=== PATIENT | male | born 1940 | race Caucasian/White ===

== ENCOUNTER 2016-12-20 09:34 | Emergency (ER) | payer MEDICARE ==
[2016-12-20 11:51] VITALS: BP 142/83
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
--- NOTE | 2016-12-22 09:23 | CR ---
Chest 2V INDICATION: cough FINDINGS: Comparison 10/28/2008. Mild hyperinflation. Chronic compression fractures in the mid and lo wer thoracic spine have mildly progressed since the prior exam in 2008. No focal consolidation.
== END 2016-12-20 12:48 | disposition home or self-care (01) ==
LOC: JP.ED 09:34
DX: J10.1 Influenza due to other identified influenza virus with other respiratory manifestations (principal); I10 Essential (primary) hypertension; K21.9 Gastro-esophageal reflux disease without esophagitis; Z98.890 Other specified postprocedural states; Z79.899 Other long term (current) drug therapy; Z88.0 Allergy status to penicillin; Z88.8 Allergy status to other drugs, medicaments and biological substances
CPT/HCPCS: 36415; 71020; 71020-26; 80053; 81001; 83605; 85025; 86140; 87040; 87210; 87804; 99283; 99284

== ENCOUNTER 2018-10-22 08:01 | Inpatient (IN) | payer MEDICARE ==
[2018-10-22] MEDS: Clindamycin Phosphate 300 MG/2 ML SDV ONE ×3 (07:40→11:55)
[~2018-10-22 08:01] MED LIST: Acetaminophen 500 MG Tab PO ONE; Dexamethasone 4 MG/ML SDV ONE; Glycopyrrolate 0.2 MG/ML 5 ML MDV ONE; Neostigmine Methylsulfate 1 MG/ML 5 ML Syringe ONE; Ondansetron 4 MG/2 ML SDV ONE; Propofol 200 MG/20 ML SDV ONE; Rocuronium 50 MG/5 ML Vial ONE; Succinylcholine 200 MG/10 ML MDV ONE; fentaNYL 250 MCG/5 ML SDV ONE; methylPREDNISolone Sodium Succinate 125 MG/2 ML SDV IV ONE
[2018-10-22] MEDS: Dextrose 5%-Lactated Ringers 1,000 ML IV SCH ×2 (09:04→14:29)
[2018-10-22] MEDS ORDERED: Meropenem 500 MG in Sodium Chloride 0.9% 50 ML IV ONE (09:30)
[2018-10-22] MEDS ORDERED: Bacitracin Oint 1 GM U/D Packet ONE (12:07)
[2018-10-22] MEDS ORDERED: Ondansetron 4 MG/2 ML SDV IVPUSH PRN (14:08)
[2018-10-22] MEDS ORDERED: guaiFENesin/Dextromethorphan 100-10 MG/5 ML Soln 10 ML Cup PO PRN (14:12)
[2018-10-22] MEDS ORDERED: Hypromellose 0.4% Ophth Soln 15 ML Bottle EYEBOTH PRN (14:13)
[2018-10-22] MEDS: Acetaminophen/HYDROcodone 108-2.5 MG/5 ML Soln 15 ML UD Cup PO PRN (14:32)
[2018-10-22] MEDS: Meropenem 500 MG in Sodium Chloride 0.9% 50 ML IV SCH ×2 (17:07→22:05)
[2018-10-22] MEDS ORDERED: methylPREDNISolone Sodium Succinate 125 MG/2 ML SDV IVPUSH ONE (18:00)
[2018-10-22] MEDS: rOPINIRole 1 MG Tab PO SCH (20:15)
[2018-10-22] MEDS: Oxybutynin 5 MG Tab PO SCH (20:15)
[2018-10-22] MEDS: Tamsulosin 0.4 MG Cap.ER PO SCH (20:16)
[2018-10-22] MEDS: Hydroxychloroquine 200 MG Tab PO SCH (20:16)
[2018-10-22] MEDS: Ketotifen 0.025% Ophth Soln 5 ML Bottle EYEBOTH SCH (20:16)
[2018-10-22] MEDS: Ciprofloxacin 500 MG Tab PO SCH (20:16)
[2018-10-23] MEDS: Dextrose 5%-Lactated Ringers 1,000 ML IV SCH ×2 (01:35→15:08)
[2018-10-23] MEDS: Meropenem 500 MG in Sodium Chloride 0.9% 50 ML IV SCH (05:42)
[2018-10-23] MEDS: predniSONE 5 MG Tab PO SCH (08:23)
[2018-10-23] MEDS: Pantoprazole 40 MG Tab.CR PO SCH (08:23)
[2018-10-23] MEDS: Ciprofloxacin 500 MG Tab PO SCH ×2 (08:23→20:04)
[2018-10-23] MEDS: amLODIPine 10 MG Tab PO SCH (08:24)
[2018-10-23] MEDS: Hydroxychloroquine 200 MG Tab PO SCH ×2 (08:24→20:05)
[2018-10-23] MEDS: Ketotifen 0.025% Ophth Soln 5 ML Bottle EYEBOTH SCH ×2 (08:24→20:03)
[2018-10-23] MEDS: Lisinopril 10 MG Tab PO SCH (08:25)
[2018-10-23] MEDS: Finasteride 5 MG Tab PO SCH (08:25)
[2018-10-23] MEDS: Tiotropium Inhaler 18 MCG Inhalation Powder Cap Kit of 5 INH SCH (10:43)
[2018-10-23] MEDS ORDERED: Furosemide 20 MG/2 ML VIAL IVPUSH ONE (11:00)
[2018-10-23] MEDS: Magnesium Sulfate/Water 2 GM in Premix Bag 1 BAG IV SCH ×3 (11:41→21:10)
[2018-10-23] MEDS: Oxybutynin 5 MG Tab PO SCH (20:04)
[2018-10-23] MEDS: Tamsulosin 0.4 MG Cap.ER PO SCH (20:04)
[2018-10-23] MEDS: rOPINIRole 1 MG Tab PO SCH (20:05)
[2018-10-24] MEDS: Dextrose 5%-Lactated Ringers 1,000 ML IV SCH ×2 (01:03→19:32)
[2018-10-24] MEDS: Magnesium Sulfate/Water 2 GM in Premix Bag 1 BAG IV SCH ×4 (03:29→21:54)
[2018-10-24] MEDS: Tiotropium Inhaler 18 MCG Inhalation Powder Cap Kit of 5 INH SCH (07:25)
[2018-10-24] MEDS: Pantoprazole 40 MG Tab.CR PO SCH (07:58)
[2018-10-24] MEDS: Ciprofloxacin 500 MG Tab PO SCH ×2 (07:59→21:00)
[2018-10-24] MEDS: predniSONE 5 MG Tab PO SCH (07:59)
[2018-10-24] MEDS: amLODIPine 10 MG Tab PO SCH (08:00)
[2018-10-24] MEDS: Lisinopril 10 MG Tab PO SCH (08:00)
[2018-10-24] MEDS: Finasteride 5 MG Tab PO SCH (08:01)
[2018-10-24] MEDS: Hydroxychloroquine 200 MG Tab PO SCH ×2 (08:01→21:00)
[2018-10-24] MEDS: Ketotifen 0.025% Ophth Soln 5 ML Bottle EYEBOTH SCH ×2 (08:02→21:01)
[2018-10-24] MEDS: Docusate Sodium 100 MG Cap PO SCH ×2 (08:37→21:00)
[2018-10-24] MEDS: Bisacodyl 5 MG Tab PO SCH ×2 (08:37→21:00)
[2018-10-24] MEDS: Clindamycin Phosphate 900 MG in Sodium Chloride 0.9% 100 ML IV SCH ×2 (11:04→18:36)
[2018-10-24] MEDS: Tamsulosin 0.4 MG Cap.ER PO SCH (21:00)
[2018-10-24] MEDS: Oxybutynin 5 MG Tab PO SCH (21:00)
[2018-10-24] MEDS: rOPINIRole 1 MG Tab PO SCH (21:03)
[2018-10-25] MEDS: Clindamycin Phosphate 900 MG in Sodium Chloride 0.9% 100 ML IV SCH ×3 (02:12→17:25)
[2018-10-25] MEDS: Magnesium Sulfate/Water 2 GM in Premix Bag 1 BAG IV SCH (04:19)
[2018-10-25] MEDS: Tiotropium Inhaler 18 MCG Inhalation Powder Cap Kit of 5 INH SCH (07:33)
--- NOTE | 2018-10-25 08:10 | PN ---
DATE OF SERVICE: 10/25/2018 SUBJECTIVE: Skip is postoperative day #3. Pain is controlled. Vital signs; he has been afebrile. Oral intake 2430. Urine output 2525. SYDNEE drain put out 17 mL of a dark red drainage. REVIEW OF SYSTEMS: Remainder of review of systems negative for any pertinent positives and negatives. OBJECTIVE: GENERAL: Skip Villeda is a 78-year-old male. Alert, orientated. VITAL SIGNS: TPR 96.1, 56, 16, blood pressure 144/80. NECK: Incision, staple line. Negative. Goyo Lopez MD. States less red than yesterday. He was started on clindamycin because the incision looked a little red. SYDNEE drain intact. HEART: Regular rate and rhythm. LUNGS: Clear. EXTREMITIES: Without peripheral edema. ASSESSMENT: Zenker diverticulectomy and excision of subfascial lipoma for history of symptomatic Zenker diverticulum and subfascial lipoma. Date of surgery: 10/22/2018. Surgeon: Goyo Lopez MD. PLAN: Continue same cares. Plan discharge in a.. Vandana Baumann PA-C /[id number]
[2018-10-25] MEDS: Ciprofloxacin 500 MG Tab PO SCH ×2 (08:40→20:30)
[2018-10-25] MEDS: Pantoprazole 40 MG Tab.CR PO SCH (08:40)
[2018-10-25] MEDS: predniSONE 5 MG Tab PO SCH (08:40)
[2018-10-25] MEDS: Lisinopril 10 MG Tab PO SCH (08:41)
[2018-10-25] MEDS: amLODIPine 10 MG Tab PO SCH (08:41)
[2018-10-25] MEDS: Ketotifen 0.025% Ophth Soln 5 ML Bottle EYEBOTH SCH ×2 (08:41→20:31)
[2018-10-25] MEDS: Docusate Sodium 100 MG Cap PO SCH (08:41)
[2018-10-25] MEDS: Bisacodyl 5 MG Tab PO SCH (08:41)
[2018-10-25] MEDS: Finasteride 5 MG Tab PO SCH (08:42)
[2018-10-25] MEDS: Hydroxychloroquine 200 MG Tab PO SCH ×2 (08:42→20:32)
--- NOTE | 2018-10-25 13:21 | PN ---
DATE OF SERVICE: 10/24/2018 The patient has been afebrile with stable vital signs. His incision is a little bit reddened at the base, this may just be reactive from the manipulation of it. We will empirically put him on some clindamycin in the interim, continued on his Cipro for the urinary tract infection diagnosed preoperatively. The plan will be to go to a full-liquid diet today. If his IV comes out and his oral intake is satisfactory, that can probably be left out. We will see how things look tomorrow morning with regard to whether or not he is ready for being discharged back to his care center. We will check an amylase on the SYDNEE drain fluid as the lower end of the parotid gland was dissected somewhat during the course of the procedure. Goyo Lopez MD Job #: [id number]
--- NOTE | 2018-10-25 13:33 | PN ---
DATE OF SERVICE: 10/23/2018 The patient has been afebrile with stable vital signs, status post a Zenker diverticulectomy yesterday. Clinically, no major problems have been noted. Labs show a hemoglobin of 8.1, creatinine is down a little bit at 1.7, and magnesium is slightly low at 1.7. We will give him 1 unit of packed RBCs today followed by 10 mg of Lasix to avoid any problems with fluid overload. Otherwise, obtain a barium swallow x-ray in the morning. this with a lateral approach so as to evaluate the Zenker diverticulectomy. If that looks okay, we will start him on a full-liquid diet at that time. I have noticed voice is good today, and the incision looks good. Goyo Lopez MD Job #: [id number]
[2018-10-25] MEDS: Acetaminophen/HYDROcodone 108-2.5 MG/5 ML Soln 15 ML UD Cup PO PRN (18:18)
[2018-10-25] MEDS: Tamsulosin 0.4 MG Cap.ER PO SCH (20:30)
[2018-10-25] MEDS: Oxybutynin 5 MG Tab PO SCH (20:31)
[2018-10-25] MEDS: rOPINIRole 1 MG Tab PO SCH (20:32)
[2018-10-26] MEDS: Clindamycin Phosphate 900 MG in Sodium Chloride 0.9% 100 ML IV SCH (02:21)
[2018-10-26] MEDS: Tiotropium Inhaler 18 MCG Inhalation Powder Cap Kit of 5 INH SCH (07:28)
[2018-10-26] MEDS: amLODIPine 10 MG Tab PO SCH (08:26)
[2018-10-26] MEDS: Ciprofloxacin 500 MG Tab PO SCH (08:26)
[2018-10-26] MEDS: Hydroxychloroquine 200 MG Tab PO SCH (08:27)
[2018-10-26] MEDS: predniSONE 5 MG Tab PO SCH (08:27)
[2018-10-26] MEDS: Finasteride 5 MG Tab PO SCH (08:27)
[2018-10-26] MEDS: Lisinopril 10 MG Tab PO SCH (08:27)
[2018-10-26] MEDS: Ketotifen 0.025% Ophth Soln 5 ML Bottle EYEBOTH SCH (08:27)
[2018-10-26] MEDS: Pantoprazole 40 MG Tab.CR PO SCH (08:27)
--- NOTE | 2018-10-26 10:28 | CR ---
CLINICAL HISTORY: Status post Zenker's diverticulectomy FINDINGS: Multiple lateral images were obtained over the cervical region. The patient is status post to the surgery. There is a surgical drain in the low cervical region. There are 3 images were the patient swallowed some barium. There is filling of the oropharynx and the cyst the vallecula. There is contrast seen into the upper thoracic esophagus. There is some anterior soft tissue swelling Impression: Patient is status post neck surgery. There is anterior soft tissue swelling No obvious barium extravasation is identified on this very limited study.
--- NOTE | 2018-10-26 11:11 | OR ---
DATE OF PROCEDURE: 10/22/2018 PREOPERATIVE DIAGNOSIS: Highly symptomatic Zenker diverticulum. POSTOPERATIVE DIAGNOSES: 1. Highly symptomatic Zenker diverticulum. 2. Subfascial cervical lipoma. OPERATIVE PROCEDURES: 1. Zenker diverticulectomy with cricopharyngeal myotomy (67579). 2. Excision of subfascial cervical lipoma (62042). ANESTHESIA: General. ASSISTANTS: Vandana Baumann PA-C, and FLORENCIO Langston3. INDICATION FOR PROCEDURE: This is a 78-year-old presenting with increasingly symptomatic Zenker diverticulum, also having some aspiration episodes as well as general difficulty in swallowing. Recent upper GI x-ray revealed a large posteriorly based Zenker diverticulum. Plan is to proceed with a cervical exploration and Zenker diverticulectomy with associated cricopharyngeal myotomy. Potential risks of the procedure were reviewed with the patient including bleeding, infection, leaks from the diverticulectomy closure site, as well as possible cardiopulmonary, septic, or hemorrhagic complications leading to were all discussed, and the patient wishes to proceed. DETAILS OF PROCEDURE: The patient was taken to the operating room and placed in a supine position. After general endotracheal anesthesia was induced, we initially attempted an upper endoscopy with passage of a guidewire. The upper GI endoscope, in all cases, passed directly into the diverticulum, and so we abandoned that effort. At that point, the left side of the neck and upper chest were then prepped and draped. An incision was then made along the anterior border of the sternocleidomastoid muscle, carried down through the skin, subcutaneous tissue, and platysma layers. Subplatysmal flaps were then raised anteriorly and posteriorly. The cervical fascia attaching the sternocleidomastoid on its anterior aspect was then incised. During the course of the dissection, roughly a 1.5 cm lipoma was encountered in that area of the dissection. At this point, the cervical vertebrae on the left side were palpated and the sternocleidomastoid muscle retracted laterally and the larynx and thyroid medially. This was retracted and held in position such that the recurrent laryngeal nerve would be drawn away from the point of dissection. This then allowed dissection anterior to the vertebral bodies where the diverticulum was encountered. This was initially dissected free. At that point, with Anesthesia assistance, a guidewire was passed orally midway into the main course of the esophagus. Over this, a 45-Azeri Savary dilator placed to prevent overtightening of the esophagus at the time of the diverticulectomy closure. At this point, the entire cricopharyngeus muscle was divided somewhat to the left of the posterior midline, and roughly 1 cm of the hypopharyngeal muscle superior to the diverticulum also then divided, this being accomplished with electrocautery in both cases. The diverticulum was then pulled up, and using 2 firings of the LUX purple loads, the diverticulum was divided and the specimen delivered from the field. The closure of the diverticulum was accomplished with the dilator in place so as to avoid overtightening of the esophagus at that level. At this point, no further problems were noted. The dilator and wire were removed, and the area appeared to be satisfactorily hemostatic. The area was then irrigated with antibiotic-containing saline solution, and the deeper cervical fascia was then approximated with a running 3-0 Vicryl stitch, as was the platysmal layer. A Jenaro- Gibson drain had been placed through a stab wound lateral to the incision and positioned in the depths of the dissection adjacent to the diverticulectomy site, and the skin was closed with grace. The drain was affixed with some 4-0 Vicryl stitch, and dressing applied. The patient was taken to the recovery room in satisfactory condition. There were no evident complications. Physician video library assistant, Vandana Baumann, played an essential role in assisting in this case, helping to position the patient, retract structures as needed, as well as suturing and cutting suturing when indicated. Her presence improved patient safety and decreased operative time. Goyo Lopez MD Job #: [id number]
[2018-10-26 11:20] VITALS: BP 156/73
--- NOTE | 2018-10-26 11:44 | DISCH ---
ADMISSION DIAGNOSIS: 1. Zenker's diverticulum. 2. History of alcohol abuse in remission. 3. Hypertension. 4. Benign prostatic hypertrophy. 5. Cerebrovascular accident. 6. Recent history of pneumonia. 7. Chronic kidney disease, stage 3. 8. Liver fibrosis. 9. Restless legs syndrome. 10.Diverticulosis. 11.Osteopenia. 12.Joint pain. 13.Cerebrovascular ataxia. 14.Rheumatoid arthritis. 15.Neuropathy. 16.Status post alcoholic. 17.Long-term use of systemic steroids. 18.Chronic obstructive pulmonary disease. DISCHARGE DIAGNOSES: Zenker diverticulectomy and excision of subfascial lipoma for history of symptomatic Zenker diverticulum and subfascial lipoma. Date of surgery 10/22/2018. Surgeon, Goyo Lopez MD. HOSPITAL COURSE: Skip had his surgery on 10/22/2018. He had no operative complications. On postoperative day #1, he was afebrile. Vital signs were stable. Hemoglobin was 8.1. He was given 1 unit of packed red blood cells followed by 10 mg of Lasix, and started on a full liquid diet. On postoperative day #2, he had an upper GI and it was negative. On postoperative day 3, he was continued on the full liquid diet. Pain was managed, oral intake was adequate. His incision was a little bit red. He was started on an antibiotic and it did improve within 24 hours. He was able to be discharged to home without any complications on 10/26/2017. PHYSICAL EXAMINATION: GENERAL: Skip is a 78-year-old male. VITAL SIGNS: Height is 5 feet 10.87 inches. Weight is 163 pounds. TPR is 97.5/63/17, blood pressure 144/84. HEENT: Negative. NECK: Supple. HEART: Regular rate and rhythm. LUNGS: Clear. Incision on left side of neck grace intact. SYDNEE drain will be removed. 4x4s placed over that. Area around the incision is minimally pink. ABDOMEN: Soft, nontender. EXTREMITIES: Without peripheral edema. DISPOSITION: Discharged to home. CONDITION: Stable and improving. FOLLOWUP APPOINTMENT: With Goyo Lopez MD on 11/03/2018 at 9:00 a.m. HOME MEDICATIONS: Clindamycin 300 mg p.o. every 8 hours for 5 days, acetaminophen and hydrocodone 108-2.5 mg per 5 mL 15 mL oral q.4 hours p.r.n. pain enough for 7 days was given. He is to resume his home medication of Fosamax 70 mg oral every 7 days, Optivar 0.05% ophthalmic solution 1 drop topical twice daily, bacitracin ointment one applicator twice daily, calcium carbonate one tab 3 times a day, Dextran 70-Hypromellose artificial Tears one drop both eyes p.r.n. redness, Robitussin DM 5 mL oral q.4 hours, finasteride, Proscar 10 mg oral daily, hydrocortisone preparation H one applicator twice or as directed, Plaquenil 200 mg oral twice daily, Motrin 800 mg oral every 8 hours, lisinopril 10 mg oral daily, Imodium 2 mg oral as directed, milk of magnesia 30 mL p.r.n. constipation, Beng[place] one applicator 2 times a day, multivitamin one tablet oral daily, Naprosyn 500 mg oral p.r.n. pain, Nystatin 5 mL 4 times a day p.r.n. thrush, omeprazole 40 mg daily, oxybutynin 5 mg oral at bedtime, potassium chloride 15 mL oral daily, Flomax 0.4 mg oral daily, Spiriva hand haler one cap inhalation daily, Kenalog 0.1% cream topical 3 times daily, lanolin one applicator p.r.n. itching, amlodipine besylate 10 mg once daily, prednisone 8 mg daily, ropinirole 1 mg oral at bedtime. DIET: Full liquid diet for 5 days, then gradually increase. Drink 8 to 10 glasses of water a day. ACTIVITY: No lifting greater than 10 pounds for 6 weeks[address] Driving, do not drive until grace are out. May shower. DISCHARGE INSTRUCTIONS: Notify provider if any fever, increased pain, nausea, or vomiting. Keep site clean and dry.
== END 2018-10-26 14:10 | disposition home or self-care (01) | DRG 327 ==
LOC: JP.SDSSCHI 08:01 → JP.SDS 08:01 → EDSTATUS 10:30 → JP.MS 12:30
PROVIDERS: ADMIT Surgery; ATTEND Surgery
PROC: 0DB50ZZ Excision of Esophagus, Open Approach (ICD-10-PCS; principal; 2018-10-22)
PROC: 0JB50ZZ Excision of Left Neck Subcutaneous Tissue and Fascia, Open Approach (ICD-10-PCS; 2018-10-22)
PROC: 0K830ZZ Division of Left Neck Muscle, Open Approach (ICD-10-PCS; 2018-10-22)
PROC: 0CJY8ZZ Inspection of Mouth and Throat, Via Natural or Artificial Opening Endoscopic (ICD-10-PCS; 2018-10-22)
PROC: 30233N1 Transfusion of Nonautologous Red Blood Cells into Peripheral Vein, Percutaneous Approach (ICD-10-PCS; 2018-10-23)
DX: K22.5 Diverticulum of esophagus, acquired (principal); G11.9 Hereditary ataxia, unspecified; N39.0 Urinary tract infection, site not specified; D17.0 Benign lipomatous neoplasm of skin and subcutaneous tissue of head, face and neck; D64.9 Anemia, unspecified; I12.9 Hypertensive chronic kidney disease with stage 1 through stage 4 chronic kidney disease, or unspecified chronic kidney disease; N18.3 Chronic kidney disease, stage 3 (moderate); Z87.891 Personal history of nicotine dependence; J44.9 Chronic obstructive pulmonary disease, unspecified; N40.1 Benign prostatic hyperplasia with lower urinary tract symptoms; R33.8 Other retention of urine; Z86.73 Personal history of transient ischemic attack (TIA), and cerebral infarction without residual deficits; F10.21 Alcohol dependence, in remission; G25.81 Restless legs syndrome; K21.9 Gastro-esophageal reflux disease without esophagitis; K74.0 Hepatic fibrosis; M85.80 Other specified disorders of bone density and structure, unspecified site; Z79.52 Long term (current) use of systemic steroids; Z88.5 Allergy status to narcotic agent; Z88.0 Allergy status to penicillin; M05.9 Rheumatoid arthritis with rheumatoid factor, unspecified; G62.1 Alcoholic polyneuropathy; Z87.01 Personal history of pneumonia (recurrent)
CPT/HCPCS: 36415; 36430; 70360; 70360-26; 80053; 82150; 82607; 82728; 83735; 83880; 84100; 85027; 86850; 86900; 86901; 86920; 86922; 88304; 88312; 93005; 94640; 94762; A9270-GY; J0330; J1100; J1940; J2185; J2405; J2704; J2710; J2930; J3010; J3475; J3490; J7030; J7042; J7050; P9016; S0077

== ENCOUNTER 2019-07-26 12:27 | Emergency (ER) | payer MEDICARE ==
[2019-07-26 12:40] VITALS: BP 174/91; PULSE 70
--- NOTE | 2019-07-26 13:13 | EDM.PDOC ---
ED HPI GENERAL MEDICAL PROBLEM - General Chief Complaint: Neuro Symptoms/Deficits Stated Complaint: POSSIBLE STROKE Time Seen by Provider: 07/26/19 12:58 Source of Information: Reports: Patient, Family History Limitations: Reports: No Limitations - History of Present Illness INITIAL COMMENTS - FREE TEXT/NARRATIVE: 79-year-old male that developed some right arm tingling last evening around 8 PM , and has some intermittent right leg tingling with weightbearing over the same amount of time. No other neurologic complaints such as right leg or right arm weakness, aphasia, dysarthria, visual complaints or headache. No recent trauma. The same symptoms happened to him 40 years ago and he was told he had a "stroke " but had no residual symptoms. Since his symptoms were persistent today he thought he should have it checked out. He walks with a walker, no increased difficulty today over yesterday. His son is with him and sees no objective change. Onset: Unknown/Unsure (Around 14 or 15 hrs. ago) Location: Reports: Upper Extremity, Right, Lower Extremity, Right Associated Symptoms: Reports: No Other Symptoms Headache Pain Score (Numeric/FACES): 2 - Related Data Allergies Allergy/AdvReac Type Severity Reaction Status Date / Time oxycodone HCl [From Percocet] Allergy Cannot Verified 07/26/19 12:45 Remember Penicillins Allergy Cannot Verified 07/26/19 12:45 Remember Home Meds: Home Meds Calcium Carbonate/Vitamin D3 [Caltrate 600+D 1500 MG-400 Units] 1 tab PO TID [History] Multivitamins/Iron/Folic Acid [Cerovite Advanced Formula] 1 tab PO DAILY [History] Omeprazole 40 mg PO DAILY 12/25/13 [History] Tamsulosin HCl 0.4 mg PO DAILY 12/25/13 [History] amLODIPine Besylate [Amlodipine Besylate] 10 mg PO DAILY 12/25/13 [History] Ibuprofen [Motrin] 800 mg PO Q6HR PRN 01/28/16 [History] Triamcinolone Acetonide [Kenalog 0.1% Crm] 0.1 percent TOP TID PRN 01/28/16 [ History] Azelastine [Optivar 0.05% Ophth Soln] 1 drop TOP BID 12/20/16 [History] Finasteride [Proscar] 10 mg PO DAILY 12/20/16 [History] Oxybutynin 5 mg PO BEDTIME 12/20/16 [History] rOPINIRole HCl [Requip] 1 mg PO BEDTIME 12/20/16 [History] Alendronate Sodium [Fosamax] 70 mg PO Q7D 10/21/18 [History] Bacitracin [Bacitracin Oint] 1 applic TOP BID PRN 10/21/18 [History] Hydroxychloroquine Sulfate [Plaquenil] 200 mg PO BID 10/21/18 [History] Lisinopril 20 mg PO DAILY 10/21/18 [History] Naproxen [Naprosyn] 500 mg PO BID PRN 10/21/18 [History] Nystatin [Mycostatin] 5 ml PO QID PRN 10/21/18 [History] Potassium Chloride 15 ml PO DAILY 10/21/18 [History] Tiotropium [Spiriva HandiHaler] 1 cap INH DAILY 10/21/18 [History] predniSONE [Prednisone] 7.5 mg PO DAILY 10/21/18 [History] Acetaminophen 650 mg PO Q4H PRN 10/22/18 [History] Dextran 70/Hypromellose [Artificial Tears] 1 drop EYEBOTH DAILY PRN 10/22/18 [ History] Dextromethorphan/guaiFENesin [Robitussin DM] 5 ml PO Q4H PRN 10/22/18 [History] Hydrocortisone [Preparation H] 1 applic TP ASDIRECTED 10/22/18 [History] Loperamide [Imodium] 2 mg PO ASDIRECTED 10/22/18 [History] Magnesium Hydroxide [Milk of Magnesia] 30 ml PO DAILY PRN 10/22/18 [History] Menthol [Bengay] 1 applic TP TID PRN 10/22/18 [History] Vits A and D/White Pet/Lanolin [A and D Ointment] 1 applic TP DAILY PRN [History] Past Medical History HEENT History: Reports: Impaired Vision Cardiovascular History: Reports: Hypertension Respiratory History: Reports: COPD Gastrointestinal History: Reports: Colon Polyp, GERD, Pancreatitis Genitourinary History: Reports: BPH, Urinary Incontinence Musculoskeletal History: Reports: Back Pain, Chronic, Fracture, Osteoarthritis Neurological History: Reports: Other (See Below) 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 Psychiatric History: Reports: Addiction Other Psychiatric History: etoh Dermatologic History: Reports: Eczema - Infectious Disease History Infectious Disease History: Reports: Mumps - Past Surgical History GI Surgical History: Reports: Colonoscopy, Hernia, Inguinal, Other (See Below) Musculoskeletal Surgical History: Reports: Carpal Tunnel Social & Family History - Family History Family Medical History: Noncontributory - Tobacco Use Smoking Status *Q: Former Smoker Used Tobacco, but Quit: Yes Month/Year Tobacco Last Used: 40 years - Caffeine Use Caffeine Use: Reports: Coffee - Recreational Drug Use Recreational Drug Use: No ED ROS GENERAL - Review of Systems Review Of Systems: See Below Constitutional: Denies: Fever, Chills, Malaise HEENT: Denies: Nosebleed, Throat Pain, Vision Change Respiratory: Denies: Shortness of Breath, Cough Cardiovascular: Denies: Chest Pain GI/Abdominal: Denies: Abdominal Pain, Nausea, Vomiting Musculoskeletal: Reports: No Symptoms Neurological: Reports: Paresthesia (Right arm, especially ulnar distribution and lower right leg) Psychiatric: Reports: No Symptoms ED EXAM, NEURO - Physical Exam Exam: See Below Exam Limited By: No Limitations General Appearance: Alert, No Apparent Distress Eye Exam: Bilateral Eye: EOMI, PERRL Head Exam: Atraumatic Neck: Supple, Non-Tender Respiratory/Chest: Lungs Clear Cardiovascular: Regular Rate, Rhythm Neurological: Alert, No Motor/Sensory Deficits, Oriented x 3, Other (I cannot reproduce any weakness of the right leg or right arm or asymmetric strength) Extremities: No: Pedal Edema Psychiatric: Normal Affect, Normal Mood Skin Exam: Warm, Dry Course - Vital Signs Last Recorded V/S: Last Vital Signs Temp 98.4 F 07/26/19 12:44 Pulse 70 07/26/19 12:44 Resp 12 07/26/19 12:44 BP 174/91 H 07/26/19 12:44 Pulse Ox 98 07/26/19 12:44 - Orders/Labs/Meds Labs: Laboratory Tests 07/26/19 07/26/19 Range/Units 13:29 13:29 WBC 11.5 H (4.5-11.0) K/uL RBC 2.58 L (4.30-5.90) M/uL Hgb 7.8 L (12.0-15.0) g/dL Hct 24.9 L (40.0-54.0) % MCV 97 (80-98) fL MCH 30 (27-31) pg MCHC 31 L (32-36) % Plt Count 230 (150-400) K/uL Neut % (Auto) 83 H (36-66) % Lymph % (Auto) 9 L (24-44) % Gonzales % (Auto) 9 H (2-6) % Eos % (Auto) 0 L (2-4) % Baso % (Auto) 0 (0-1) % Sodium 138 L (140-148) mmol/L Potassium 5.9 H (3.6-5.2) mmol/L Chloride 107 (100-108) mmol/L Carbon Dioxide 23 (21-32) mmol/L Anion Gap 13.9 (5.0-14.0) mmol/L BUN 33 H D (7-18) mg/dL Creatinine 2.6 H D (0.8-1.3) mg/dL Est Cr Clr Drug Dosing 22.25 mL/min Estimated GFR (MDRD) 24 L (>60) Glucose 81 (74-106) mg/dL Calcium 8.2 L (8.5-10.1) mg/dL - Re-Assessments/Exams Free Text/Narrative Re-Assessment/Exam: 07/26/19 13:13 His numbness pattern is actually more typical of the ulnar nerve at the elbow than a central stroke. A CT of the head without contrast was obtained. 07/26/19 14:26 CT the head was negative, a CBC and BMP was obtained and does show slowly worsening anemia and kidney function. His levels are comparable to what they were in October and November earlier this year but there was marked improvement this summer. He denies any dark stools, nausea or vomiting, nosebleeds or easy bruising. We discussed possibly placing him in the hospital and following his kidney function for the next few days but he has a very important appointment with his stamp collector tomorrow that he "can't miss". Copies of the labs were done and sent with the patient, and asked him to follow up with Dr. Quiroz later this week for lab rechecks and he may need further evaluation at that time. Reviewing his extensive medication list it's likely that the kidney function is being affected by some of the medications, possibly the steroids, lisinopril, Plaquenil or naproxen. 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 Recheck with Dr. Quiroz later this week to possibly recheck labs or arrange further evaluation. Return to the emergency room at any time if worsening or concerns.
--- NOTE | 2019-07-26 14:26 | CRLCT ---
INDICATION: Right arm and leg paresthesias. TECHNIQUE: Scanning of the head was performed without IV contrast material. Coronal reconstructions were obtained. COMPARISON: None. FINDINGS: No intracranial hemorrhage is demonstrated. No positive mass effect is evident. Differentiation between the gagnon matter and white matter is preserved. Punctate foci of low attenuation, consistent with chronic microvascular infarcts, are demonstrated in both thalami, the right lentiform nucleus and the left paramedian putamen. There is nonspecific decreased attenuation in the cerebral white matter which is most likely due to aging/chronic microvascular ischemic disease. The ventricles and other subarachnoid spaces are within normal limits for the patient`s age. Cerebellar atrophy is noted. No calvarial abnormality is evident. The visualized paranasal and mastoid sinuses are clear. IMPRESSION: 1. No acute abnormality demonstrated. 2. Cerebellar atrophy. 3. 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 4. Nonspecific cerebral white matter disease, most likely due to aging/chronic microvascular ischemic disease. Please note that all CT scans at this facility use dose modulation, iterative reconstruction, and/or weight-based dosing when appropriate to reduce radiation dose to as low as reasonably achievable. Dictated by Kev Christopher MD @ Jul 26 2019 2:12PM Signed by Dr. Kev Christopher @ Jul 26 2019 2:25PM
== END 2019-07-26 14:50 | disposition home or self-care (01) ==
LOC: JP.ED 12:27
DX: R20.2 Paresthesia of skin (principal); I12.9 Hypertensive chronic kidney disease with stage 1 through stage 4 chronic kidney disease, or unspecified chronic kidney disease; N18.2 Chronic kidney disease, stage 2 (mild); J44.9 Chronic obstructive pulmonary disease, unspecified; K21.9 Gastro-esophageal reflux disease without esophagitis; Z88.0 Allergy status to penicillin; Z88.5 Allergy status to narcotic agent; Z79.899 Other long term (current) drug therapy; Z87.891 Personal history of nicotine dependence
CPT/HCPCS: 36415; 70450; 80048; 85025; 99282; 99284-25

== ENCOUNTER 2020-02-23 11:37 | Inpatient (IN) | payer MEDICARE ==
[2020-02-23] MEDS ORDERED: Sodium Chloride 0.9% 10 ML Syringe FLUSH PRN (11:39)
--- NOTE | 2020-02-23 11:45 | EDM.PDOC ---
ED HPI GENERAL MEDICAL PROBLEM - General Chief Complaint: Respiratory Problem Stated Complaint: MEDICAL [facility]IA [facility] Time Seen by Provider: 02/23/20 11:40 Source of Information: Reports: Patient, EMS, Old Records History Limitations: Reports: No Limitations - History of Present Illness INITIAL COMMENTS - FREE TEXT/NARRATIVE: 79 yo male with known hx of COPD who is a resident of an assisted living facility in [place] was sent to our ER today via EMS for a couple days of weakness with some mild SOB. A low grade fever was reported, but EMS did not note a fever. EMS did note low oximetry readings so he was started on oxygen by them, he is not normally on oxygen. Skip says he has had an increase frequency of coughing with white sputum produced. He also reported some nausea earlier today without vomiting, none now. Dr. Quiroz is his primary care provider. Onset: Gradual Duration: Day(s):, Getting Worse Location: Reports: Generalized Quality: Reports: Other (pain not reported) Severity: Moderate Improves with: Reports: None Worsens with: Reports: Other (? time) Context: Reports: Other (See HPI) Associated Symptoms: Reports: Cough, Fever/Chills, Nausea/Vomiting (no vomiting) , Shortness of Breath, Weakness. Denies: Confusion, Diaphoresis, Headaches, Rash, Syncope Treatments TREE MARKER: Reports: Oxygen - Related Data Allergies Allergy/AdvReac Type Severity Reaction Status Date / Time oxycodone HCl [From Percocet] Allergy Cannot Verified 02/23/20 12:31 Remember Penicillins Allergy Hives Verified 02/23/20 12:31 Home Meds: Home Meds Calcium Carbonate/Vitamin D3 [Caltrate 600+D 1500 MG-400 Units] 1 tab PO TID [History] Multivitamins/Iron/Folic Acid [Cerovite Advanced Formula] 1 tab PO DAILY [History] Omeprazole 40 mg PO DAILY 12/25/13 [History] Tamsulosin HCl 0.4 mg PO DAILY 12/25/13 [History] amLODIPine Besylate [Amlodipine Besylate] 10 mg PO DAILY 12/25/13 [History] Ibuprofen [Motrin] 800 mg PO Q6HR PRN 01/28/16 [History] Triamcinolone Acetonide [Kenalog 0.1% Crm] 0.1 percent TOP TID PRN 01/28/16 [ History] Azelastine [Optivar 0.05% Ophth Soln] 1 drop TOP BID 12/20/16 [History] Finasteride [Proscar] 10 mg PO DAILY 12/20/16 [History] Oxybutynin 5 mg PO BEDTIME 12/20/16 [History] rOPINIRole HCl [Requip] 1 mg PO BEDTIME 12/20/16 [History] Alendronate Sodium [Fosamax] 70 mg PO Q7D 10/21/18 [History] Bacitracin [Bacitracin Oint] 1 applic TOP BID PRN 10/21/18 [History] Hydroxychloroquine Sulfate [Plaquenil] 200 mg PO BID 10/21/18 [History] Lisinopril 20 mg PO DAILY 10/21/18 [History] Nystatin [Mycostatin] 5 ml PO QID PRN 10/21/18 [History] Potassium Chloride 15 ml PO DAILY 10/21/18 [History] Tiotropium [Spiriva HandiHaler] 2 puff INH DAILY 10/21/18 [History] predniSONE [Prednisone] 7.5 mg PO DAILY 10/21/18 [History] Acetaminophen 1,000 mg PO TID 10/22/18 [History] Loperamide [Imodium] 2 mg PO ASDIRECTED 10/22/18 [History] Magnesium Hydroxide [Milk of Magnesia] 30 ml PO DAILY 10/22/18 [History] Fluticasone Propionate [Flonase] 2 sprays NS DAILY 12/22/19 [History] Ipratropium [Atrovent 0.06% Nasal [place]] 2 puff NASBOTH BEDTIME 12/22/19 [ History] Metoprolol Succinate [Toprol XL] 25 mg PO DAILY 12/22/19 [History] hydroCHLOROthiazide [Hydrochlorothiazide] 25 mg PO DAILY 12/22/19 [History] Naproxen 500 mg PO BID 12/23/19 [History] Starch [Thick-It] 1 scoop PO ASDIRECTED 12/23/19 [History] hydrALAZINE [Apresoline] 10 mg PO Q12HR 02/23/20 [History] Past Medical History HEENT History: Reports: Impaired Vision Cardiovascular History: Reports: Hypertension Respiratory History: Reports: COPD Gastrointestinal History: Reports: Colon Polyp, GERD, Pancreatitis Genitourinary History: Reports: BPH, Urinary Incontinence Musculoskeletal History: Reports: Back Pain, Chronic, Fracture, Osteoarthritis Neurological History: Reports: Other (See Below) 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 Psychiatric History: Reports: Addiction Other Psychiatric History: etoh Dermatologic History: Reports: Eczema - Infectious Disease History Infectious Disease History: Reports: Mumps - Past Surgical History GI Surgical History: Reports: Colonoscopy, Hernia, Inguinal, Other (See Below) Musculoskeletal Surgical History: Reports: Carpal Tunnel Social & Family History - Family History Family Medical History: Noncontributory - Caffeine Use Caffeine Use: Reports: Coffee ED ROS GENERAL - Review of Systems Review Of Systems: See Below Constitutional: Reports: Fever, Chills, Malaise, Weakness HEENT: Reports: No Symptoms Respiratory: Reports: Shortness of Breath, Cough, Sputum (white). Denies: Wheezing, Pleuritic Chest Pain, Hemoptysis Cardiovascular: Reports: No Symptoms Endocrine: Reports: No Symptoms GI/Abdominal: Reports: Nausea. Denies: Abdominal Pain, Black Stool, Bloody Stool, Constipation, Diarrhea, Distension, Hematemesis, Hematochezia, Vomiting : Reports: No Symptoms Musculoskeletal: Reports: No Symptoms Skin: Reports: No Symptoms Neurological: Reports: Weakness (generalized) Psychiatric: Reports: No Symptoms ED EXAM, GENERAL - Physical Exam Exam: See Below Exam Limited By: No Limitations General Appearance: Alert, WD/WN, No Apparent Distress Eye Exam: Bilateral Eye: Normal Inspection Ears: Normal External Exam, Normal Canal, Hearing Grossly Normal, Normal TMs Ear Exam: Bilateral Ear: Auricle Normal, Canal Normal, TM normal Nose: Normal Inspection, No Blood Throat/Mouth: Normal Inspection, Normal Lips, Normal Oropharynx, No Airway Compromise, Other (raspy voice, ? old) Head: Atraumatic, Normocephalic Neck: Normal Inspection Respiratory/Chest: No Respiratory Distress, No Accessory Muscle Use, Rhonchi (L lung field). No: Decreased Breath Sounds, Crackles, Rales, Wheezing, Retractions Cardiovascular: Regular Rate, Rhythm, No Edema GI/Abdominal: Normal Bowel Sounds, Soft, Non-Tender, No Distention Back Exam: Normal Inspection. No: CVA Tenderness (R), CVA Tenderness (L) Extremities: Normal Inspection, Normal Range of Motion, Non-Tender, No Pedal Edema Neurological: Alert, Oriented, CN II-XII Intact, Normal Cognition, No Motor/ Sensory Deficits Psychiatric: Normal Affect, Normal Mood Skin Exam: Warm, Dry, Intact, Normal Color, No Rash Course - Vital Signs Text/Narrative:: Dr. Ozuna called, left message at 1221h. Last Recorded V/S: Last Vital Signs Temp 36.2 C 02/23/20 11:58 Pulse 61 02/23/20 13:05 Resp 12 02/23/20 13:05 BP 155/77 H 02/23/20 13:05 Pulse Ox 86 L 02/23/20 12:05 - Orders/Labs/Meds Orders: Active Orders 24 hr Category Date Time Status CULTURE BLOOD [BC] Stat Lab 02/23/20 12:45 Received CULTURE BLOOD [BC] Stat Lab 02/23/20 12:50 Received UA W/MICROSCOPIC [URIN] Stat Lab 02/23/20 11:39 Ordered Lactated Ringers [Ringers, Lactated] 1,000 ml Med 02/23/20 12:15 Active IV ASDIRECTED Sodium Chloride 0.9% [Saline Flush] Med 02/23/20 11:39 Active 10 ml FLUSH ASDIRECTED PRN Saline Lock Insert [OM.PC] Routine Oth 02/23/20 11:39 Ordered Medication Orders Lactated Ringer's (Ringers, Lactated) 1,000 mls @ 500 mls/hr IV ASDIRECTED MERVAT Last Admin: 02/23/20 12:36 Dose: 500 mls/hr Sodium Chloride (Saline Flush) 10 ml FLUSH ASDIRECTED PRN PRN Reason: Keep Vein Open Last Admin: 02/23/20 11:46 Dose: 10 ml Labs: Laboratory Tests 02/23/20 02/23/20 02/23/20 Range/Units 11:39 11:52 11:52 WBC 16.6 H (4.5-11.0) K/uL RBC 2.64 L (4.30-5.90) M/uL Hgb 7.9 L (12.0-15.0) g/dL Hct 25.5 L (40.0-54.0) % MCV 97 (80-98) fL MCH 30 (27-31) pg MCHC 31 L (32-36) % Plt Count 239 (150-400) K/uL Sodium 137 L (140-148) mmol/L Potassium 3.9 (3.6-5.2) mmol/L Chloride 103 (100-108) mmol/L Carbon Dioxide 27 (21-32) mmol/L Anion Gap 10.9 (5.0-14.0) mmol/L BUN 40 H (7-18) mg/dL Creatinine 3.4 H (0.8-1.3) mg/dL Est Cr Clr Drug Dosing 18.09 mL/min Estimated GFR (MDRD) 18 L (>60) Glucose 88 (74-106) mg/dL Calcium 8.0 L (8.5-10.1) mg/dL Troponin I < 0.017 (0.000-0.056) ng/mL Meds: Medications Generic Name Dose Route Start Last Admin Trade Name Freq PRN Reason Stop Dose Admin Lactated Ringer's 1,000 mls @ 500 mls/hr 02/23/20 12:15 02/23/20 12:36 Ringers, Lactated IV 500 mls/hr ASDIRECTED MERVAT Administration Sodium Chloride 10 ml 02/23/20 11:39 02/23/20 11:46 Saline Flush FLUSH 10 ml ASDIRECTED PRN Administration Keep Vein Open Discontinued Medications Generic Name Dose Route Start Last Admin Trade Name Freq PRN Reason Stop Dose Admin Ceftriaxone Sodium 1 gm/ 50 mls @ 100 mls/hr 02/23/20 12:45 02/23/20 12:42 Sodium Chloride IV 02/23/20 13:14 100 mls/hr ONETIME ONE Administration - Radiology Interpretation Free Text/Narrative:: CXR-pneumonia L base Departure - Departure Time of Disposition: 13:30 Disposition: Admitted As Inpatient 66 Condition: Fair Clinical Impression: Hypoxia Left lower lobe pneumonia Qualifiers: Pneumonia type: due to unspecified organism Qualified Code(s): J18.9 - Pneumonia, unspecified organism - Discharge Information Sepsis Event Note - Focused Exam Vital Signs: Vital Signs Temp Pulse Resp BP Pulse Ox 02/23/20 13:05 61 12 155/77 H 02/23/20 12:05 56 L 20 147/72 H 86 L 02/23/20 11:58 36.2 C 55 L 141/62 H 91 L 02/23/20 11:46 91 L 02/23/20 11:45 36.2 C 55 L 15 141/62 H 93 L Date Exam was Performed: 02/23/20 Time Exam was Performed: 14:55 - My Orders Last 24 Hours: My Active Orders 02/23/20 11:39 UA W/MICROSCOPIC [URIN] Stat Sodium Chloride 0.9% [Saline Flush] 10 ml FLUSH ASDIRECTED PRN Saline Lock Insert [OM.PC] Routine 02/23/20 12:15 Lactated Ringers [Ringers, Lactated] 1,000 ml IV ASDIRECTED 02/23/20 12:45 CULTURE BLOOD [BC] Stat 02/23/20 12:50 CULTURE BLOOD [BC] Stat - Assessment/Plan Last 24 Hours: My Active Orders 02/23/20 11:39 UA W/MICROSCOPIC [URIN] Stat Sodium Chloride 0.9% [Saline Flush] 10 ml FLUSH ASDIRECTED PRN Saline Lock Insert [OM.PC] Routine 02/23/20 12:15 Lactated Ringers [Ringers, Lactated] 1,000 ml IV ASDIRECTED 02/23/20 12:45 CULTURE BLOOD [BC] Stat 02/23/20 12:50 CULTURE BLOOD [BC] Stat
--- NOTE | 2020-02-23 12:12 | CRLCR ---
INDICATION: Dyspnea and low-grade fever COMPARISON: December 20, 2016 TECHNIQUE: Two views of the chest were acquired FINDINGS: TUBES AND LINES: None. HEART AND MEDIASTINUM: Heart size normal. Tortuous thoracic aorta. LUNGS AND PLEURAL SPACES: Diffuse left-sided airspace disease with emeli consolidation at the left base medially. Possible developing left effusion. Also, probable right base airspace disease.The findings are likely related to pneumonia. Atypical pneumonia including viral pneumonia should be considered if clinically appropriate OSSEOUS STRUCTURES: Demineralization, rib changes and kyphosis IMPRESSION: Significant diffuse left-sided airspace disease with emeli consolidation at the left base and probably a small left effusion. Developing airspace disease at the right base. Findings are likely related to pneumonia. Atypical pneumonia including viral etiology should be considered if clinically appropriate Dictated by Goyo Godoy MD @ Feb 23 2020 12:05PM Signed by Dr. Goyo Godoy @ Feb 23 2020 12:10PM
[2020-02-23] MEDS ORDERED: Lactated Ringers 1,000 ML IV SCH (12:15)
[2020-02-23] MEDS ORDERED: cefTRIAXone 1 GM in Sodium Chloride 0.9% 50 ML IV ONE ×2 (12:16→12:45)
--- NOTE | 2020-02-23 14:21 | PCM.HP.2 ---
H&P History of Present Illness - General Date of Service: 02/23/20 Admit Problem/Dx: Admission Diagnosis/Problem Admission Diagnosis/Problem Pneumonia Source of Information: Patient, Provider History Limitations: Reports: No Limitations - History of Present Illness Initial Comments - Free Text/Narative: CC: My wind was short HPI: Skip presented to the emergency room today with cough and shortness of breath. He reports a couple of days of progressive symptoms. He has been coughing a lot but does not produce much sputum. Shortness of breath is described as moderate. No complaints of chest pain or pain with breathing. He does not think he has had any fevers. He does report that his appetite and energy have both decreased over the past couple of days. Strength seems to be declining as well. No complaints of nausea or abdominal pain. No change in bowel or bladder habits. No sick contacts that he is aware of. He does report a history of pneumonia. He has an obvious white plaque that appears to be thrush on his tongue but does not have any pain in his mouth or with swallowing. Work-up in the emergency room was suggestive of a left lower lobe pneumonia with acute respiratory failure with hypoxia. His creatinine is down from baseline. White blood cell count is elevated. He will be admitted for management of the pneumonia. He has received ceftriaxone and will be receiving doxycycline in the emergency room. - Related Data Allergies/Adverse Reactions: Allergies Allergy/AdvReac Type Severity Reaction Status Date / Time oxycodone HCl [From Percocet] Allergy Cannot Verified 02/23/20 12:31 Remember Penicillins Allergy Hives Verified 02/23/20 12:31 Home Medications: Home Meds Calcium Carbonate/Vitamin D3 [Caltrate 600+D 1500 MG-400 Units] 1 tab PO TID [History] Multivitamins/Iron/Folic Acid [Cerovite Advanced Formula] 1 tab PO DAILY [History] Omeprazole 40 mg PO DAILY 12/25/13 [History] Tamsulosin HCl 0.4 mg PO DAILY 12/25/13 [History] amLODIPine Besylate [Amlodipine Besylate] 10 mg PO DAILY 12/25/13 [History] Ibuprofen [Motrin] 800 mg PO Q6HR PRN 01/28/16 [History] Triamcinolone Acetonide [Kenalog 0.1% Crm] 0.1 percent TOP TID PRN 01/28/16 [ History] Azelastine [Optivar 0.05% Ophth Soln] 1 drop TOP BID 12/20/16 [History] Finasteride [Proscar] 10 mg PO DAILY 12/20/16 [History] Oxybutynin 5 mg PO BEDTIME 12/20/16 [History] rOPINIRole HCl [Requip] 1 mg PO BEDTIME 12/20/16 [History] Alendronate Sodium [Fosamax] 70 mg PO Q7D 10/21/18 [History] Bacitracin [Bacitracin Oint] 1 applic TOP BID PRN 10/21/18 [History] Hydroxychloroquine Sulfate [Plaquenil] 200 mg PO BID 10/21/18 [History] Lisinopril 20 mg PO DAILY 10/21/18 [History] Nystatin [Mycostatin] 5 ml PO QID PRN 10/21/18 [History] Potassium Chloride 15 ml PO DAILY 10/21/18 [History] Tiotropium [Spiriva HandiHaler] 2 puff INH DAILY 10/21/18 [History] predniSONE [Prednisone] 7.5 mg PO DAILY 10/21/18 [History] Acetaminophen 1,000 mg PO TID 10/22/18 [History] Loperamide [Imodium] 2 mg PO ASDIRECTED 10/22/18 [History] Magnesium Hydroxide [Milk of Magnesia] 30 ml PO DAILY 10/22/18 [History] Fluticasone Propionate [Flonase] 2 sprays NS DAILY 12/22/19 [History] Ipratropium [Atrovent 0.06% Nasal [place]] 2 puff NASBOTH BEDTIME 12/22/19 [ History] Metoprolol Succinate [Toprol XL] 25 mg PO DAILY 12/22/19 [History] hydroCHLOROthiazide [Hydrochlorothiazide] 25 mg PO DAILY 12/22/19 [History] Naproxen 500 mg PO BID 12/23/19 [History] Starch [Thick-It] 1 scoop PO ASDIRECTED 12/23/19 [History] hydrALAZINE [Apresoline] 10 mg PO Q12HR 02/23/20 [History] Past Medical History HEENT History: Reports: Impaired Vision Cardiovascular History: Reports: Hypertension Respiratory History: Reports: COPD Gastrointestinal History: Reports: Colon Polyp, GERD, Pancreatitis Genitourinary History: Reports: BPH, Urinary Incontinence Musculoskeletal History: Reports: Back Pain, Chronic, Fracture, Osteoarthritis Neurological History: Reports: Other (See Below) 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 Psychiatric History: Reports: Addiction Other Psychiatric History: etoh Dermatologic History: Reports: Eczema - Infectious Disease History Infectious Disease History: Reports: Mumps - Past Surgical History GI Surgical History: Reports: Colonoscopy, Hernia, Inguinal, Other (See Below) Musculoskeletal Surgical History: Reports: Carpal Tunnel Social & Family History - Family History Family Medical History: Noncontributory - Tobacco Use Smoking Status *Q: Former Smoker Used Tobacco, but Quit: Yes Month/Year Tobacco Last Used: 1959 Second Hand Smoke Exposure: No - Caffeine Use Caffeine Use: Reports: Coffee - Recreational Drug Use Recreational Drug Use: Yes H&P Review of Systems - Review of Systems: Review Of Systems: See Below Free Text/Narrative: A complete 12 point review of systems was obtained. Pertinent positives and negatives are noted in the history of present illness. All other systems were reviewed and were negative except as noted. Exam - Exam Exam: See Below - Vital Signs Vital Signs: Last Vital Signs Temp 36.2 C 02/23/20 11:58 Pulse 61 02/23/20 13:05 Resp 12 02/23/20 13:05 BP 155/77 H 02/23/20 13:05 Pulse Ox 86 L 02/23/20 12:05 Weight: 70.307 kg - Exam Quality Assessment: Supplemental Oxygen General: Alert, Oriented, Cooperative. No: Mild Distress HEENT: Conjunctiva Clear, Other (white plaque on the tongue ). No: Mucosa Moist & [place] (dry) Neck: Supple, Trachea Midline Lungs: Normal Respiratory Effort, Crackles (left mid and base). No: Wheezing Cardiovascular: Regular Rate, Regular Rhythm GI/Abdominal Exam: Normal Bowel Sounds, Soft, Non-Tender, No Distention Extremities: No Pedal Edema. No: Increased Warmth Skin: Warm, Dry Neuro Extensive - Mental Status: Alert, Oriented x3, Nl Response to Commands Neuro Extensive - Motor, Sensory, Reflexes: No: Dysarthria, Abnormal Motor, Tremor Psychiatric: Alert, Normal Affect - Patient Data Lab Results Last 24 hrs: Laboratory Results - last 24 hr 02/23/20 02/23/20 02/23/20 Range/Units 11:39 11:52 11:52 WBC 16.6 H (4.5-11.0) K/uL RBC 2.64 L (4.30-5.90) M/uL Hgb 7.9 L (12.0-15.0) g/dL Hct 25.5 L (40.0-54.0) % MCV 97 (80-98) fL MCH 30 (27-31) pg MCHC 31 L (32-36) % Plt Count 239 (150-400) K/uL Sodium 137 L (140-148) mmol/L Potassium 3.9 (3.6-5.2) mmol/L Chloride 103 (100-108) mmol/L Carbon Dioxide 27 (21-32) mmol/L Anion Gap 10.9 (5.0-14.0) mmol/L BUN 40 H (7-18) mg/dL Creatinine 3.4 H (0.8-1.3) mg/dL Est Cr Clr Drug Dosing 18.09 mL/min Estimated GFR (MDRD) 18 L (>60) Glucose 88 (74-106) mg/dL Calcium 8.0 L (8.5-10.1) mg/dL Troponin I < 0.017 (0.000-0.056) ng/mL Result Diagrams: 02/23/20 11:39 02/23/20 11:52 Imaging Impressions Last 24 hrs: CXR-images personally reviewed-left lower lobe infiltrate noted. No mass or effusion. Heart size is normal. Sepsis Event Note - Evaluation Sepsis Screening Result: No Definite Risk - Focused Exam Vital Signs: Vital Signs Temp Pulse Resp BP Pulse Ox 02/23/20 13:05 61 12 155/77 H 02/23/20 12:05 56 L 20 147/72 H 86 L 02/23/20 11:58 36.2 C 55 L 141/62 H 91 L 02/23/20 11:46 91 L 02/23/20 11:45 36.2 C 55 L 15 141/62 H 93 L Date Exam was Performed: 02/23/20 Time Exam was Performed: 16:46 *Q Meaningful Use (ADM) - VTE Risk Assess *Q Each Risk Factor Represents 1 Point: Serious lung disease including pneumonia, Abnormal Pulmonary Function (COPD) Total Score 1 Point Risk Factors: 2 Each Risk Factor Represents 2 Points: None Total Score 2 Point Risk Factors: 0 Each Risk Factor Represents 3 Points: Age 75 Years or Greater Total Score 3 Point Risk Factors: 3 Each Risk Factor Represents 5 Points: None Total Score 5 Point Risk Factors: 0 Venous Thromboembolism Risk Factor Score *Q: 5 - Problem List (1) Left lower lobe pneumonia SNOMED Code(s): 204384370 ICD Code: J18.9 - PNEUMONIA, UNSPECIFIED ORGANISM Status: Acute Current Visit: Yes Qualifiers: Pneumonia type: due to unspecified organism Qualified Code(s): J18.9 - Pneumonia, unspecified organism (2) Acute respiratory failure with hypoxia SNOMED Code(s): 19541905, 945409063 ICD Code: J96.01 - ACUTE RESPIRATORY FAILURE WITH HYPOXIA Status: Acute Current Visit: Yes (3) Acute kidney injury superimposed on chronic kidney disease SNOMED Code(s): 16401441 ICD Code: N17.9 - ACUTE KIDNEY FAILURE, UNSPECIFIED; N18.9 - CHRONIC KIDNEY DISEASE, UNSPECIFIED Status: Acute Current Visit: Yes (4) Anemia SNOMED Code(s): 371164390 ICD Code: D64.9 - ANEMIA, UNSPECIFIED Status: Acute Current Visit: Yes Qualifiers: Anemia type: unspecified type Qualified Code(s): D64.9 - Anemia, unspecified (5) Rheumatoid arthritis SNOMED Code(s): 42893035 ICD Code: M06.9 - RHEUMATOID ARTHRITIS, UNSPECIFIED Status: Chronic Current Visit: Yes Qualifiers: Rheumatoid arthritis location: multiple sites Problem List Initiated/Reviewed/Updated: Yes Orders Last 24hrs: Active Orders 24 hr Category Date Time Status Patient Status Manage Transfer [TRANSFER] Routine ADT 02/23/20 14:04 Ordered CULTURE BLOOD [BC] Stat Lab 02/23/20 12:45 Received CULTURE BLOOD [BC] Stat Lab 02/23/20 12:50 Received UA W/MICROSCOPIC [URIN] Stat Lab 02/23/20 11:39 Ordered Lactated Ringers [Ringers, Lactated] 1,000 ml Med 02/23/20 12:15 Active IV ASDIRECTED Sodium Chloride 0.9% [Saline Flush] Med 02/23/20 11:39 Active 10 ml FLUSH ASDIRECTED PRN Saline Lock Insert [OM.PC] Routine Oth 02/23/20 11:39 Ordered Resuscitation Status Routine Resus Stat 02/23/20 14:09 Ordered Medication Orders Lactated Ringer's (Ringers, Lactated) 1,000 mls @ 500 mls/hr IV ASDIRECTED MERVAT Last Admin: 02/23/20 12:36 Dose: 500 mls/hr Sodium Chloride (Saline Flush) 10 ml FLUSH ASDIRECTED PRN PRN Reason: Keep Vein Open Last Admin: 02/23/20 11:46 Dose: 10 ml Assessment/Plan Comment:: ASSESSMENT AND PLAN - Left lower lobe pneumonia-complicated by acute respiratory failure with hypoxia. No evidence for sepsis. He is requiring supplemental oxygen at this time. Significant cough but not much sputum. Weak and not eating well. -Antibiotic coverage with ceftriaxone and doxycycline -Supplement oxygen -Sputum culture if able -Symptomatic management of cough Acute on chronic kidney disease-significant decline in kidney function from baseline. Probably related to poor intake recently. Blood pressure is on the low side of normal. -Hold hydrochlorothiazide and lisinopril -IV fluids -Labs in the morning Anemia-suspect anemia of chronic disease with contribution from renal disease. No recent issues with bleeding. Hemoglobin currently above 7. -Repeat hemoglobin in the morning, transfuse if less than 7 Rheumatoid arthritis-symptoms are stable. He is on chronic immunosuppressive therapy with hydroxychloroquine. Essential hypertension-he is on multiple antihypertensives at this time. Lisinopril and hydrochlorothiazide will be held but others will be continued. Maintenance issues - - DVT prophylaxis -CATHY stockings - GI prophylaxis -PPI - Nutrition -regular - Helm catheter -not indicated CODE STATUS -DNR/DNI Admission justification -this patient will be admitted for inpatient services and is medically appropriate meeting medical necessity for inpatient admission as outlined in my documentation. I reasonably expect the patient will require inpatient services that span a period time over 2 midnights. I reasonably expect this patient to be discharged or transferred within 96 hours [facility]. Disposition -I would anticipate discharge back to the assisted living facility after the hospital stay Primary care physician - Dr Richie Ozuna M.D. - Mortality Measure Prognosis:: Good
[2020-02-23] MEDS ORDERED: Magnesium Hydroxide 400 MG/5 ML Susp 30 ML Cup PO PRN (15:10)
[2020-02-23] MEDS ORDERED: Ondansetron 4 MG Tab.DIS PO PRN (15:10)
[2020-02-23] MEDS ORDERED: Acetaminophen 325 MG Tab PO PRN (15:10)
[2020-02-23] MEDS ORDERED: Albuterol 0.083% 2.5 MG/3 ML Neb Soln NEB PRN (15:10)
[2020-02-23] MEDS ORDERED: Ondansetron 4 MG/2 ML SDV IV PRN (15:10)
[2020-02-23] MEDS ORDERED: guaiFENesin/Dextromethorphan 100-10 MG/5 ML Soln 10 ML Cup PO PRN (15:10)
[2020-02-23] MEDS ORDERED: LORazepam 2 MG/ML SDV IVPUSH PRN (15:10)
[2020-02-23] MEDS ORDERED: Benzonatate 100 MG Cap PO PRN (15:10)
[2020-02-23] MEDS: Nystatin Susp 100,000 Unit/ML 5 ML UD Cup PO SCH ×2 (16:24→21:09)
[2020-02-23] MEDS: Doxycycline 100 MG Cap PO SCH (18:23)
[2020-02-23] MEDS: Hydroxychloroquine 200 MG Tab PO SCH (20:52)
[2020-02-23] MEDS: Lactobacillus Rhamnosus GG (Probiotic) Cap PO SCH (20:52)
[2020-02-23] MEDS: hydrALAZINE 10 MG Tab PO SCH (20:52)
[2020-02-23] MEDS: Oxybutynin 5 MG Tab PO SCH (20:52)
[2020-02-23] MEDS: Acetaminophen 500 MG Tab PO SCH (20:52)
[2020-02-23] MEDS: rOPINIRole 1 MG Tab PO SCH (20:52)
[2020-02-23] MEDS: Melatonin 3 MG Tab PO SCH (20:52)
[2020-02-23] MEDS: Albuterol/Ipratropium 3.0-0.5 MG/3 ML Neb Soln NEB SCH (20:59)
[2020-02-23] MEDS ORDERED: Acetaminophen 500 MG Tab PO SCH (21:00)
[2020-02-24] MEDS: Sodium Chloride 0.9% 1,000 ML IV SCH ×2 (05:56→19:43)
[2020-02-24] MEDS: Nystatin Susp 100,000 Unit/ML 5 ML UD Cup PO SCH ×4 (05:57→22:32)
[2020-02-24] MEDS: Doxycycline 100 MG Cap PO SCH ×2 (05:57→17:23)
[2020-02-24] MEDS ORDERED: Glycopyrrolate 15.6 MCG Cap.W.Dev Kit of 6 IH SCH (07:00)
[2020-02-24] MEDS: Albuterol/Ipratropium 3.0-0.5 MG/3 ML Neb Soln NEB SCH ×4 (07:46→20:37)
[2020-02-24] MEDS: Glycopyrrolate 15.6 MCG Cap.W.Dev Kit of 6 IH SCH ×2 (07:48→20:24)
[2020-02-24] MEDS ORDERED: Non-Formulary Medication 1 Each (Tiotropium [Spiriva Handihaler] 2 PUFF) INH SCH (09:00)
[2020-02-24] MEDS: Lactobacillus Rhamnosus GG (Probiotic) Cap PO SCH ×2 (09:04→20:23)
[2020-02-24] MEDS: Finasteride 5 MG Tab PO SCH (09:04)
[2020-02-24] MEDS: Hydroxychloroquine 200 MG Tab PO SCH ×2 (09:04→20:24)
[2020-02-24] MEDS: predniSONE 5 MG Tab PO SCH (09:04)
[2020-02-24] MEDS: Acetaminophen 500 MG Tab PO SCH ×3 (09:04→20:24)
[2020-02-24] MEDS: Tamsulosin 0.4 MG Cap.ER PO SCH (09:04)
[2020-02-24] MEDS: Pantoprazole 40 MG Tab.CR PO SCH (09:04)
[2020-02-24] MEDS: amLODIPine 10 MG Tab PO SCH (09:05)
[2020-02-24] MEDS: hydrALAZINE 10 MG Tab PO SCH ×2 (09:05→20:23)
[2020-02-24] MEDS: Metoprolol Succinate 25 MG Tab.ER PO SCH (09:05)
--- NOTE | 2020-02-24 12:25 | PCM.PN ---
- General Info Date of Service: 02/24/20 Subjective Update: No acute events overnight. Patient reports that he feels weak and tired and does not have much of an appetite but otherwise feels okay. No complaints of chest pain. Shortness of breath is better today. No abdominal pain or nausea. No fevers overnight. White blood cell count is slightly better today. Kidney function marginally better. Functional Status: Reports: Pain Controlled, Tolerating Diet - Review of Systems General: Reports: Weakness. Denies: Fever - Patient Data Vitals - Most Recent: Last Vital Signs Temp 36.2 C 02/24/20 07:29 Pulse 56 L 02/24/20 11:27 Resp 20 02/24/20 07:29 BP 158/70 H 02/24/20 09:05 Pulse Ox 90 L 02/24/20 11:27 Weight - Most Recent: 70.307 kg I&O - Last 24 Hours: Intake & Output 02/23/20 02/24/20 02/24/20 22:59 06:59 14:59 Intake Total 30 1107 360 Output Total 350 Balance 30 757 360 Lab Results Last 24 Hours: Laboratory Results - last 24 hr 02/24/20 02/24/20 02/24/20 Range/Units 05:30 06:13 06:13 WBC 15.2 H (4.5-11.0) K/uL RBC 2.72 L (4.30-5.90) M/uL Hgb 8.3 L (12.0-15.0) g/dL Hct 26.3 L (40.0-54.0) % MCV 97 (80-98) fL MCH 31 (27-31) pg MCHC 32 (32-36) % Plt Count 236 (150-400) K/uL Sodium 138 L (140-148) mmol/L Potassium 3.7 (3.6-5.2) mmol/L Chloride 105 (100-108) mmol/L Carbon Dioxide 25 (21-32) mmol/L Anion Gap 11.7 (5.0-14.0) mmol/L BUN 34 H (7-18) mg/dL Creatinine 3.2 H (0.8-1.3) mg/dL Est Cr Clr Drug Dosing 19.22 mL/min Estimated GFR (MDRD) 19 L (>60) Glucose 86 (74-106) mg/dL Calcium 7.8 L (8.5-10.1) mg/dL Magnesium 4.0 H (1.8-2.4) mg/dL Urine Color Yellow (YELLOW) Urine Appearance Clear (CLEAR) Urine pH 8.0 (5.0-8.0) Ur Specific [place] 1.025 (1.008-1.030) Urine Protein >=300 H (NEGATIVE) mg/dL Urine Glucose (UA) Negative (NEGATIVE) mg/dL Urine Ketones Negative (NEGATIVE) mg/dL Urine Occult Blood Moderate H (NEGATIVE) Urine Nitrite Negative (NEGATIVE) Urine Bilirubin Negative (NEGATIVE) Urine Urobilinogen 0.2 (0.2-1.0) EU/dL Ur Leukocyte Esterase Negative (NEGATIVE) Urine RBC Not seen (0-5) Urine WBC 0-5 (0-5) Ur Epithelial Cells Not seen Amorphous Sediment Few Urine Bacteria Not seen Urine Mucus Not seen Jules Results Last 24 Hours: Microbiology 02/24/20 08:52 Gram Stain - Final Sputum - Expectorated Med Orders - Current: Current Medications Acetaminophen (Tylenol) 650 mg PO Q4H PRN PRN Reason: Pain (Mild 1-3)/fever Acetaminophen (Tylenol Extra Strength) 1,000 mg PO TID [facility] Last Admin: 02/24/20 09:04 Dose: 1,000 mg Albuterol (Proventil Neb Soln) 2.5 mg NEB Q4H PRN PRN Reason: Shortness Of Breath/wheezing Albuterol/Ipratropium (Duoneb 3.0-0.5 Mg/3 Ml) 3 ml NEB QIDRT [facility] Last Admin: 02/24/20 11:27 Dose: 3 ml Amlodipine Besylate (Norvasc) 10 mg PO DAILY [facility] Last Admin: 02/24/20 09:05 Dose: 10 mg Benzonatate (Tessalon Perles) 100 mg PO TID PRN PRN Reason: Cough Doxycycline Hyclate (Vibramycin) 100 mg PO Q12H [facility] Last Admin: 02/24/20 05:57 Dose: 100 mg Finasteride (Proscar) 10 mg PO DAILY [facility] Last Admin: 02/24/20 09:04 Dose: 10 mg Glycopyrrolate (Seebri Neohaler) 15.6 mcg IH BIDRT [facility] Last Admin: 02/24/20 07:48 Dose: 1 cap Guaifenesin/Dextromethorphan (Robitussin Dm) 10 ml PO Q4H PRN PRN Reason: Cough Hydralazine HCl (Apresoline) 10 mg PO Q12H [facility] Last Admin: 02/24/20 09:05 Dose: 10 mg Hydroxychloroquine Sulfate (Plaquenil) 200 mg PO BID [facility] Last Admin: 02/24/20 09:04 Dose: 200 mg Ceftriaxone Sodium 1 gm/ (Sodium Chloride) 50 mls @ 100 mls/hr IV Q24H [facility] Sodium Chloride (Normal Saline) 1,000 mls @ 75 mls/hr IV ASDIRECTED [facility] Last Admin: 02/24/20 05:56 Dose: 75 mls/hr Lactobacillus Rhamnosus (Culturelle) 1 cap PO BID [facility] Last Admin: 02/24/20 09:04 Dose: 1 cap Lorazepam (Ativan) 0.5 mg IVPUSH Q4H PRN PRN Reason: Nausea/Vomiting Magnesium Hydroxide (Milk Of Magnesia) 30 ml PO Q12H PRN PRN Reason: Constipation Melatonin (Melatonin) 9 mg PO BEDTIME [facility] Last Admin: 02/23/20 20:52 Dose: 9 mg Metoprolol Succinate (Toprol Xl) 25 mg PO DAILY [facility] Last Admin: 02/24/20 09:05 Dose: 25 mg Nystatin (Mycostatin) 5 ml PO QID [facility] Last Admin: 02/24/20 09:04 Dose: 5 ml Ondansetron HCl (Zofran Odt) 4 mg PO Q6H PRN PRN Reason: Nausea able to take PO Ondansetron HCl (Zofran) 4 mg IV Q6H PRN PRN Reason: Nausea/Vomiting Oxybutynin Chloride (Oxybutynin) 5 mg PO BEDTIME [facility] Last Admin: 02/23/20 20:52 Dose: 5 mg Pantoprazole Sodium (Protonix) 40 mg PO ACBREAKFAST [facility] Last Admin: 02/24/20 09:04 Dose: 40 mg Prednisone (Prednisone) 7.5 mg PO DAILY [facility] Last Admin: 02/24/20 09:04 Dose: 7.5 mg Ropinirole HCl (Requip) 1 mg PO BEDTIME [facility] Last Admin: 02/23/20 20:52 Dose: 1 mg Senna/Docusate Sodium (Senna Plus) 1 tab PO BID PRN PRN Reason: Constipation Sodium Chloride (Saline Flush) 10 ml FLUSH ASDIRECTED PRN PRN Reason: Keep Vein Open Last Admin: 02/23/20 11:46 Dose: 10 ml Tamsulosin HCl (Flomax) 0.4 mg PO DAILY [facility] Last Admin: 02/24/20 09:04 Dose: 0.4 mg Discontinued Medications Acetaminophen (Tylenol Extra Strength) 1,000 mg PO TID [facility] Lactated Ringer's (Ringers, Lactated) 1,000 mls @ 500 mls/hr IV ASDIRECTED [facility] Last Admin: 02/23/20 12:36 Dose: 500 mls/hr Ceftriaxone Sodium 1 gm/ (Sodium Chloride) 50 mls @ 100 mls/hr IV ONETIME ONE Stop: 02/23/20 13:14 Last Admin: 02/23/20 12:42 Dose: 100 mls/hr - Exam Quality Assessment: Supplemental Oxygen General: Alert, Oriented Lungs: Normal Respiratory Effort, Crackles (left lung base) Cardiovascular: Regular Rate, Regular Rhythm GI/Abdominal Exam: Normal Bowel Sounds, Soft, No Distention Extremities: No Pedal Edema. No: Increased Warmth Skin: Warm, Dry Psy/Mental Status: Alert, Normal Affect Sepsis Event Note - Evaluation Sepsis Screening Result: No Definite Risk - Focused Exam Vital Signs: Vital Signs Temp Pulse Pulse Resp BP BP Pulse Ox 02/24/20 11:27 56 L 02/24/20 09:05 58 L 158/70 H 02/24/20 07:48 58 L 02/24/20 07:29 36.2 C 58 L 20 158/70 H 91 L 02/24/20 03:17 36.3 C 50 L 18 138/55 L 95 02/24/20 01:00 18 Pulse Ox 02/24/20 11:27 90 L 02/24/20 09:05 02/24/20 07:48 95 02/24/20 07:29 02/24/20 03:17 02/24/20 01:00 Date Exam was Performed: 02/24/20 Time Exam was Performed: 13:50 - Problem List & Annotations (1) Left lower lobe pneumonia SNOMED Code(s): 490888453 Code(s): J18.9 - PNEUMONIA, UNSPECIFIED ORGANISM Status: Acute Current Visit: Yes Qualifiers: Pneumonia type: due to unspecified organism Qualified Code(s): J18.9 - Pneumonia, unspecified organism (2) Acute respiratory failure with hypoxia SNOMED Code(s): 06898414, 533308703 Code(s): J96.01 - ACUTE RESPIRATORY FAILURE WITH HYPOXIA Status: Acute Current Visit: Yes (3) Acute kidney injury superimposed on chronic kidney disease SNOMED Code(s): 44342370 Code(s): N17.9 - ACUTE KIDNEY FAILURE, UNSPECIFIED; N18.9 - CHRONIC KIDNEY DISEASE, UNSPECIFIED Status: Acute Current Visit: Yes (4) Anemia SNOMED Code(s): 358292345 Code(s): D64.9 - ANEMIA, UNSPECIFIED Status: Acute Current Visit: Yes Qualifiers: Anemia type: unspecified type Qualified Code(s): D64.9 - Anemia, unspecified (5) Rheumatoid arthritis SNOMED Code(s): 07386237 Code(s): M06.9 - RHEUMATOID ARTHRITIS, UNSPECIFIED Status: Chronic Current Visit: Yes Qualifiers: Rheumatoid arthritis location: multiple sites - Problem List Review Problem List Initiated/Reviewed/Updated: Yes - My Orders Last 24 Hours: My Active Orders 02/23/20 14:09 Resuscitation Status Routine 02/23/20 15:10 Patient Status [ADT] Routine Antiembolic Devices [RC] .Routine Intake and Output [RC] QSHIFT Notify Provider Vital Signs [RC] ASDIRECTED Oxygen Therapy [RC] PRN RT Aerosol Therapy [RC] ASDIRECTED Up With Assistance [RC] ASDIRECTED Vital Signs [RC] Q4H Acetaminophen [Tylenol] 650 mg PO Q4H PRN Albuterol [Proventil Neb Soln] 2.5 mg NEB Q4H PRN Benzonatate [Tessalon Perles] 100 mg PO TID PRN Dextromethorphan/guaiFENesin [Robitussin DM] 10 ml PO Q4H PRN Docusate Sodium/Sennosides [Senna Plus] 1 tab PO BID PRN LORazepam [Ativan] 0.5 mg IVPUSH Q4H PRN Magnesium Hydroxide [Milk of Magnesia] 30 ml PO Q12H PRN Ondansetron [Zofran ODT] 4 mg PO Q6H PRN Ondansetron [Zofran] 4 mg IV Q6H PRN Sodium Chloride 0.9% [Normal Saline] 1,000 ml IV ASDIRECTED Antiembolic Hose [OM.PC] Routine 02/23/20 16:00 Nystatin [Mycostatin] 5 ml PO QID 02/23/20 18:00 Doxycycline [Vibramycin] 100 mg PO Q12H 02/23/20 21:00 Acetaminophen [Tylenol Extra Strength] 1,000 mg PO TID Albuterol/Ipratropium [DuoNeb 3.0-0.5 MG/3 ML] 3 ml NEB QIDRT Hydroxychloroquine [Plaquenil] 200 mg PO BID Lactobacillus Rhamnosus GG [Culturelle] 1 cap PO BID Melatonin 9 mg PO BEDTIME Oxybutynin 5 mg PO BEDTIME hydrALAZINE [Apresoline] 10 mg PO Q12H rOPINIRole [Requip] 1 mg PO BEDTIME 02/23/20 Dinner Mechanical Soft Diet [DIET] 02/24/20 07:00 PT Evaluation and Treatment [CONS] Routine Glycopyrrolate [Seebri Neohaler] 15.6 mcg IH BIDRT 02/24/20 07:30 Pantoprazole [ProTONIX] 40 mg PO ACBREAKFAST 02/24/20 08:52 CULTURE RESPIRATORY + SMEAR [RM] Routine 02/24/20 09:00 Finasteride [Proscar] 10 mg PO DAILY Metoprolol Succinate [Toprol XL] 25 mg PO DAILY Tamsulosin [Flomax] 0.4 mg PO DAILY amLODIPine [Norvasc] 10 mg PO DAILY predniSONE 7.5 mg PO DAILY 02/24/20 12:24 RT Acapella [RESPCARE] Routine 02/24/20 13:00 cefTRIAXone [Rocephin] 1 gm Sodium Chloride 0.9% [Normal Saline] 50 ml IV Q24H 02/25/20 05:00 BASIC METABOLIC PANEL,BMP [CHEM] Timed CBC W/O DIFF,HEMOGRAM [HEME] Timed (1) - Plan Plan:: ASSESSMENT AND PLAN - Left lower lobe pneumonia-complicated by acute respiratory failure with hypoxia. Still requiring supplemental oxygen but respiratory status is stable. White blood cell count slightly better. Gram stain from respiratory sample showed gram-positive cocci and gram-positive rods but identification is pending. -Antibiotic coverage with ceftriaxone and doxycycline -Supplement oxygen -Follow-up sputum culture -Symptomatic management of cough Acute on chronic kidney disease-significant decline in kidney function from baseline. Probably related to poor intake recently and is slightly better today. -Hold hydrochlorothiazide and lisinopril -IV fluids -Labs in the morning Anemia-suspect anemia of chronic disease with contribution from renal disease. No recent issues with bleeding. Hemoglobin stable. -Repeat hemoglobin in the morning, transfuse if less than 7 Rheumatoid arthritis-symptoms are stable. He is on chronic immunosuppressive therapy with hydroxychloroquine. Essential hypertension-he is on multiple antihypertensives at this time. Lisinopril and hydrochlorothiazide will be held but others will be continued. Maintenance issues - - DVT prophylaxis -CATHY stockings - GI prophylaxis -PPI - Nutrition -regular Disposition -I would anticipate discharge back to the assisted living facility after the hospital stay. Facility will not be able to accept him until Thursday because of the holiday weekend. Primary care physician - Dr Richie Ozuna M.D.
[2020-02-24] MEDS: cefTRIAXone 1 GM in Sodium Chloride 0.9% 50 ML IV SCH (14:01)
[2020-02-24] MEDS: Melatonin 3 MG Tab PO SCH (20:23)
[2020-02-24] MEDS: rOPINIRole 1 MG Tab PO SCH (20:24)
[2020-02-24] MEDS: Oxybutynin 5 MG Tab PO SCH (20:24)
[2020-02-25] MEDS: Nystatin Susp 100,000 Unit/ML 5 ML UD Cup PO SCH ×4 (06:32→21:03)
[2020-02-25] MEDS: Doxycycline 100 MG Cap PO SCH ×2 (06:32→17:46)
[2020-02-25] MEDS: Glycopyrrolate 15.6 MCG Cap.W.Dev Kit of 6 IH SCH ×2 (07:19→21:03)
[2020-02-25] MEDS: Albuterol/Ipratropium 3.0-0.5 MG/3 ML Neb Soln NEB SCH ×4 (07:19→21:11)
[2020-02-25] MEDS: Sodium Chloride 0.9% 1,000 ML IV SCH (09:05)
[2020-02-25] MEDS: predniSONE 5 MG Tab PO SCH (09:06)
[2020-02-25] MEDS: Lactobacillus Rhamnosus GG (Probiotic) Cap PO SCH ×2 (09:06→21:02)
[2020-02-25] MEDS: amLODIPine 10 MG Tab PO SCH (09:06)
[2020-02-25] MEDS: Finasteride 5 MG Tab PO SCH (09:06)
[2020-02-25] MEDS: Hydroxychloroquine 200 MG Tab PO SCH ×2 (09:07→21:02)
[2020-02-25] MEDS: Tamsulosin 0.4 MG Cap.ER PO SCH (09:07)
[2020-02-25] MEDS: Pantoprazole 40 MG Tab.CR PO SCH (09:07)
[2020-02-25] MEDS: Metoprolol Succinate 25 MG Tab.ER PO SCH (09:07)
[2020-02-25] MEDS: Acetaminophen 500 MG Tab PO SCH ×3 (09:08→21:03)
[2020-02-25] MEDS: hydrALAZINE 10 MG Tab PO SCH ×2 (10:23→21:01)
--- NOTE | 2020-02-25 11:20 | PCM.PN ---
- General Info Date of Service: 02/25/20 Subjective Update: No acute events overnight. Patient still feels short of breath and still feels weak and tired. Not much of an appetite. Continues to require 3 L of supplemental oxygen. Cough has been more productive. No abdominal pain or nausea. Slept well. White blood cell count slowly trending down. Kidney function slightly better again today. Functional Status: Reports: Pain Controlled, Tolerating Diet - Review of Systems General: Reports: Weakness. Denies: Fever Pulmonary: Reports: Shortness of Breath, Cough - Patient Data Vitals - Most Recent: Last Vital Signs Temp 35.7 C L 02/25/20 07:00 Pulse 60 02/25/20 10:52 Resp 16 02/25/20 10:25 BP 134/94 H 02/25/20 10:25 Pulse Ox 90 L 02/25/20 10:25 Weight - Most Recent: 70.307 kg I&O - Last 24 Hours: Intake & Output 02/24/20 02/25/20 02/25/20 22:59 06:59 14:59 Intake Total 2352 871 300 Output Total 300 350 Balance 2052 521 300 Lab Results Last 24 Hours: Laboratory Results - last 24 hr 02/25/20 02/25/20 Range/Units 06:04 06:04 WBC 14.3 H (4.5-11.0) K/uL RBC 2.39 L (4.30-5.90) M/uL Hgb 7.3 L (12.0-15.0) g/dL Hct 22.9 L (40.0-54.0) % MCV 96 (80-98) fL MCH 31 (27-31) pg MCHC 32 (32-36) % Plt Count 218 (150-400) K/uL Sodium 136 L (140-148) mmol/L Potassium 3.5 L (3.6-5.2) mmol/L Chloride 104 (100-108) mmol/L Carbon Dioxide 22 (21-32) mmol/L Anion Gap 13.5 (5.0-14.0) mmol/L BUN 32 H (7-18) mg/dL Creatinine 3.1 H (0.8-1.3) mg/dL Est Cr Clr Drug Dosing 19.84 mL/min Estimated GFR (MDRD) 20 L (>60) Glucose 136 H (74-106) mg/dL Calcium 7.2 L (8.5-10.1) mg/dL Jules Results Last 24 Hours: Microbiology 02/24/20 08:52 Gram Stain - Final Sputum - Expectorated Respiratory Culture - Preliminary NORMAL RESPIRATORY ANTHONY 1 DAY 02/23/20 12:50 Aerobic Blood Culture - Preliminary Blood - Arm, Left NO GROWTH AFTER 1 DAY Anaerobic Blood Culture - Preliminary NO GROWTH AFTER 1 DAY 02/23/20 12:45 Aerobic Blood Culture - Preliminary Blood - Arm, Right NO GROWTH AFTER 1 DAY Anaerobic Blood Culture - Preliminary NO GROWTH AFTER 1 DAY Med Orders - Current: Current Medications Acetaminophen (Tylenol Extra Strength) 1,000 mg PO TID [facility] Last Admin: 02/25/20 09:08 Dose: 1,000 mg Albuterol (Proventil Neb Soln) 2.5 mg NEB Q4H PRN PRN Reason: Shortness Of Breath/wheezing Albuterol/Ipratropium (Duoneb 3.0-0.5 Mg/3 Ml) 3 ml NEB QIDRT [facility] Last Admin: 02/25/20 10:51 Dose: 3 ml Amlodipine Besylate (Norvasc) 10 mg PO DAILY [facility] Last Admin: 02/25/20 09:06 Dose: 10 mg Benzonatate (Tessalon Perles) 100 mg PO TID PRN PRN Reason: Cough Doxycycline Hyclate (Vibramycin) 100 mg PO Q12H [facility] Last Admin: 02/25/20 06:32 Dose: 100 mg Finasteride (Proscar) 10 mg PO DAILY [facility] Last Admin: 02/25/20 09:06 Dose: 10 mg Glycopyrrolate (Seebri Neohaler) 15.6 mcg IH BIDRT [facility] Last Admin: 02/25/20 07:19 Dose: 1 cap Guaifenesin/Dextromethorphan (Robitussin Dm) 10 ml PO Q4H PRN PRN Reason: Cough Hydralazine HCl (Apresoline) 10 mg PO Q12H [facility] Last Admin: 02/25/20 10:23 Dose: 10 mg Hydroxychloroquine Sulfate (Plaquenil) 200 mg PO BID [facility] Last Admin: 02/25/20 09:07 Dose: 200 mg Ceftriaxone Sodium 1 gm/ (Sodium Chloride) 50 mls @ 100 mls/hr IV Q24H [facility] Last Admin: 02/24/20 14:01 Dose: 100 mls/hr Sodium Chloride (Normal Saline) 1,000 mls @ 75 mls/hr IV ASDIRECTED [facility] Last Admin: 02/25/20 09:05 Dose: 75 mls/hr Lactobacillus Rhamnosus (Culturelle) 1 cap PO BID [facility] Last Admin: 02/25/20 09:06 Dose: 1 cap Lorazepam (Ativan) 0.5 mg IVPUSH Q4H PRN PRN Reason: Nausea/Vomiting Magnesium Hydroxide (Milk Of Magnesia) 30 ml PO Q12H PRN PRN Reason: Constipation Melatonin (Melatonin) 9 mg PO BEDTIME [facility] Last Admin: 02/24/20 20:23 Dose: 9 mg Metoprolol Succinate (Toprol Xl) 25 mg PO DAILY [facility] Last Admin: 02/25/20 09:07 Dose: 25 mg Nystatin (Mycostatin) 5 ml PO QID [facility] Last Admin: 02/25/20 09:08 Dose: 5 ml Ondansetron HCl (Zofran Odt) 4 mg PO Q6H PRN PRN Reason: Nausea able to take PO Ondansetron HCl (Zofran) 4 mg IV Q6H PRN PRN Reason: Nausea/Vomiting Oxybutynin Chloride (Oxybutynin) 5 mg PO BEDTIME [facility] Last Admin: 02/24/20 20:24 Dose: 5 mg Pantoprazole Sodium (Protonix) 40 mg PO ACBREAKFAST [facility] Last Admin: 02/25/20 09:07 Dose: 40 mg Prednisone (Prednisone) 7.5 mg PO DAILY [facility] Last Admin: 02/25/20 09:06 Dose: 7.5 mg Ropinirole HCl (Requip) 1 mg PO BEDTIME [facility] Last Admin: 02/24/20 20:24 Dose: 1 mg Senna/Docusate Sodium (Senna Plus) 1 tab PO BID PRN PRN Reason: Constipation Sodium Chloride (Saline Flush) 10 ml FLUSH ASDIRECTED PRN PRN Reason: Keep Vein Open Last Admin: 02/23/20 11:46 Dose: 10 ml Tamsulosin HCl (Flomax) 0.4 mg PO DAILY [facility] Last Admin: 02/25/20 09:07 Dose: 0.4 mg Discontinued Medications Acetaminophen (Tylenol Extra Strength) 1,000 mg PO TID [facility] Acetaminophen (Tylenol) 650 mg PO Q4H PRN PRN Reason: Pain (Mild 1-3)/fever Lactated Ringer's (Ringers, Lactated) 1,000 mls @ 500 mls/hr IV ASDIRECTED [facility] Last Admin: 02/23/20 12:36 Dose: 500 mls/hr Ceftriaxone Sodium 1 gm/ (Sodium Chloride) 50 mls @ 100 mls/hr IV ONETIME ONE Stop: 02/23/20 13:14 Last Admin: 02/23/20 12:42 Dose: 100 mls/hr - Exam Quality Assessment: Supplemental Oxygen General: Alert, Oriented, Cooperative, No Acute Distress Lungs: Normal Respiratory Effort, Crackles (left lung base) Cardiovascular: Regular Rate, Regular Rhythm GI/Abdominal Exam: Soft, No Distention Extremities: No Pedal Edema. No: Increased Warmth Skin: Warm, Dry Psy/Mental Status: Alert, Normal Affect Sepsis Event Note - Evaluation Sepsis Screening Result: No Definite Risk - Focused Exam Vital Signs: Vital Signs Temp Pulse Pulse Resp BP BP BP 02/25/20 10:52 60 02/25/20 10:25 64 16 134/94 H 02/25/20 10:23 134/94 H 02/25/20 09:07 60 171/63 H 02/25/20 09:06 171/63 H 02/25/20 07:00 35.7 C L 59 L 16 171/63 H 02/25/20 03:00 36 C L 56 L 18 160/69 H Pulse Ox 02/25/20 10:52 02/25/20 10:25 90 L 02/25/20 10:23 02/25/20 09:07 02/25/20 09:06 02/25/20 07:00 95 02/25/20 03:00 95 Date Exam was Performed: 02/25/20 Time Exam was Performed: 12:31 - Problem List & Annotations (1) Left lower lobe pneumonia SNOMED Code(s): 093114728 Code(s): J18.9 - PNEUMONIA, UNSPECIFIED ORGANISM Status: Acute Current Visit: Yes Qualifiers: Pneumonia type: due to unspecified organism Qualified Code(s): J18.9 - Pneumonia, unspecified organism (2) Acute respiratory failure with hypoxia SNOMED Code(s): 97780414, 009763724 Code(s): J96.01 - ACUTE RESPIRATORY FAILURE WITH HYPOXIA Status: Acute Current Visit: Yes (3) Acute kidney injury superimposed on chronic kidney disease SNOMED Code(s): 76381116 Code(s): N17.9 - ACUTE KIDNEY FAILURE, UNSPECIFIED; N18.9 - CHRONIC KIDNEY DISEASE, UNSPECIFIED Status: Acute Current Visit: Yes (4) Anemia SNOMED Code(s): 731107799 Code(s): D64.9 - ANEMIA, UNSPECIFIED Status: Acute Current Visit: Yes Qualifiers: Anemia type: unspecified type Qualified Code(s): D64.9 - Anemia, unspecified (5) Rheumatoid arthritis SNOMED Code(s): 09771809 Code(s): M06.9 - RHEUMATOID ARTHRITIS, UNSPECIFIED Status: Chronic Current Visit: Yes Qualifiers: Rheumatoid arthritis location: multiple sites - Problem List Review Problem List Initiated/Reviewed/Updated: Yes - My Orders Last 24 Hours: My Active Orders 02/24/20 12:24 RT Acapella [RESPCARE] Routine 02/24/20 13:00 cefTRIAXone [Rocephin] 1 gm Sodium Chloride 0.9% [Normal Saline] 50 ml IV Q24H 02/25/20 11:14 Convert IV to Saline Lock [OM.PC] Routine 02/25/20 11:15 Up to Chair [RC] QID 02/26/20 05:00 BASIC METABOLIC PANEL,BMP [CHEM] Timed CBC W/O DIFF,HEMOGRAM [HEME] Timed (1) - Plan Plan:: ASSESSMENT AND PLAN - Left lower lobe pneumonia-complicated by acute respiratory failure with hypoxia. Still requiring supplemental oxygen but respiratory status is stable to slowly improving. White blood cell count a little better again today. Respiratory culture grew out normal anthony. -Antibiotic coverage with ceftriaxone and doxycycline -Supplement oxygen -Follow-up sputum culture -Symptomatic management of cough -Acapella -Up to chair Acute on chronic kidney disease-significant decline in kidney function from baseline but kidney function is slowly improving. -Hold hydrochlorothiazide and lisinopril -Saline lock IV -Labs in the morning Anemia-suspect anemia of chronic disease with contribution from renal disease. No recent issues with bleeding. Hemoglobin slightly lower today with no evidence for bleeding. -Repeat hemoglobin in the morning, transfuse if less than 7 Rheumatoid arthritis-symptoms are stable. He is on chronic immunosuppressive therapy with hydroxychloroquine. Essential hypertension-he is on multiple antihypertensives at this time. Lisinopril and hydrochlorothiazide will be held but others will be continued. Maintenance issues - - DVT prophylaxis -CATHY stockings - GI prophylaxis -PPI - Nutrition -regular Disposition -I would anticipate discharge back to the assisted living facility after the hospital stay. Facility will not be able to accept him until Thursday because of the holiday weekend. Primary care physician - Dr Richie Ozuna M.D.
[2020-02-25] MEDS: cefTRIAXone 1 GM in Sodium Chloride 0.9% 50 ML IV SCH (13:56)
[2020-02-25] MEDS: Oxybutynin 5 MG Tab PO SCH (21:02)
[2020-02-25] MEDS: Melatonin 3 MG Tab PO SCH (21:02)
[2020-02-25] MEDS: rOPINIRole 1 MG Tab PO SCH (21:03)
[2020-02-26] MEDS: Nystatin Susp 100,000 Unit/ML 5 ML UD Cup PO SCH ×4 (06:15→21:00)
[2020-02-26] MEDS: Doxycycline 100 MG Cap PO SCH ×2 (06:17→18:28)
[2020-02-26] MEDS: Albuterol/Ipratropium 3.0-0.5 MG/3 ML Neb Soln NEB SCH ×4 (07:10→20:58)
[2020-02-26] MEDS: Glycopyrrolate 15.6 MCG Cap.W.Dev Kit of 6 IH SCH ×2 (07:11→20:45)
[2020-02-26] MEDS: Hydroxychloroquine 200 MG Tab PO SCH ×2 (08:50→20:48)
[2020-02-26] MEDS: Tamsulosin 0.4 MG Cap.ER PO SCH (08:50)
[2020-02-26] MEDS: predniSONE 5 MG Tab PO SCH (08:50)
[2020-02-26] MEDS: amLODIPine 10 MG Tab PO SCH (08:51)
[2020-02-26] MEDS: hydrALAZINE 10 MG Tab PO SCH ×2 (08:51→20:45)
[2020-02-26] MEDS: Acetaminophen 500 MG Tab PO SCH ×3 (08:51→20:48)
[2020-02-26] MEDS: Metoprolol Succinate 25 MG Tab.ER PO SCH (08:56)
[2020-02-26] MEDS: Lactobacillus Rhamnosus GG (Probiotic) Cap PO SCH ×2 (08:56→20:46)
[2020-02-26] MEDS: Pantoprazole 40 MG Tab.CR PO SCH (08:56)
[2020-02-26] MEDS: Potassium Chloride 20 MEQ Tab.ER PO SCH ×2 (10:38→20:46)
[2020-02-26] MEDS: Finasteride 5 MG Tab PO SCH (10:39)
--- NOTE | 2020-02-26 11:04 | PCM.PN ---
- General Info Date of Service: 02/26/20 Subjective Update: No acute events overnight. Patient has remained stable and does require ongoing use of supplemental oxygen. He feels better today with less shortness of breath. He has a loose cough. Appetite is still not very good. He thinks his strength is a little better today and he was able to get from the bed to the chair. He is not having fevers. Respiratory culture was negative. Kidney function decreased from baseline but stable. Functional Status: Reports: Pain Controlled, Tolerating Diet - Review of Systems General: Reports: Weakness. Denies: Fever Pulmonary: Reports: Cough - Patient Data Vitals - Most Recent: Last Vital Signs Temp 36.4 C 02/26/20 08:57 Pulse 71 02/26/20 08:57 Resp 20 02/26/20 08:57 BP 100/68 02/26/20 08:57 Pulse Ox 91 L 02/26/20 08:57 Weight - Most Recent: 70.307 kg I&O - Last 24 Hours: Intake & Output 02/25/20 02/26/20 02/26/20 22:59 06:59 14:59 Intake Total 480 240 Output Total 375 Balance 480 -375 240 Lab Results Last 24 Hours: Laboratory Results - last 24 hr 02/26/20 02/26/20 Range/Units 04:00 04:00 WBC 15.0 H (4.5-11.0) K/uL RBC 2.68 L (4.30-5.90) M/uL Hgb 8.2 L (12.0-15.0) g/dL Hct 25.6 L (40.0-54.0) % MCV 96 (80-98) fL MCH 31 (27-31) pg MCHC 32 (32-36) % Plt Count 272 (150-400) K/uL Sodium 136 L (140-148) mmol/L Potassium 3.3 L (3.6-5.2) mmol/L Chloride 105 (100-108) mmol/L Carbon Dioxide 20 L (21-32) mmol/L Anion Gap 14.3 H (5.0-14.0) mmol/L BUN 34 H (7-18) mg/dL Creatinine 3.2 H (0.8-1.3) mg/dL Est Cr Clr Drug Dosing 19.22 mL/min Estimated GFR (MDRD) 19 L (>60) Glucose 122 H (74-106) mg/dL Calcium 7.4 L (8.5-10.1) mg/dL Jules Results Last 24 Hours: Microbiology 02/24/20 08:52 Gram Stain - Final Sputum - Expectorated Respiratory Culture - Final NORMAL RESPIRATORY RAE 2 DAYS 02/23/20 12:45 Aerobic Blood Culture - Preliminary Blood - Arm, Right NO GROWTH AFTER 2 DAYS Anaerobic Blood Culture - Preliminary NO GROWTH AFTER 2 DAYS 02/23/20 12:50 Aerobic Blood Culture - Preliminary Blood - Arm, Left NO GROWTH AFTER 2 DAYS Anaerobic Blood Culture - Preliminary NO GROWTH AFTER 2 DAYS Med Orders - Current: Current Medications Acetaminophen (Tylenol Extra Strength) 1,000 mg PO TID [facility] Last Admin: 02/26/20 08:51 Dose: 1,000 mg Albuterol (Proventil Neb Soln) 2.5 mg NEB Q4H PRN PRN Reason: Shortness Of Breath/wheezing Albuterol/Ipratropium (Duoneb 3.0-0.5 Mg/3 Ml) 3 ml NEB QIDRT [facility] Last Admin: 02/26/20 10:46 Dose: 3 ml Amlodipine Besylate (Norvasc) 10 mg PO DAILY [facility] Last Admin: 02/26/20 08:51 Dose: 10 mg Benzonatate (Tessalon Perles) 100 mg PO TID PRN PRN Reason: Cough Doxycycline Hyclate (Vibramycin) 100 mg PO Q12H [facility] Last Admin: 02/26/20 06:17 Dose: 100 mg Finasteride (Proscar) 10 mg PO DAILY [facility] Last Admin: 02/26/20 10:39 Dose: 10 mg Glycopyrrolate (Seebri Neohaler) 15.6 mcg IH BIDRT [facility] Last Admin: 02/26/20 07:11 Dose: 1 cap Guaifenesin/Dextromethorphan (Robitussin Dm) 10 ml PO Q4H PRN PRN Reason: Cough Hydralazine HCl (Apresoline) 10 mg PO Q12H [facility] Last Admin: 02/26/20 08:51 Dose: 10 mg Hydroxychloroquine Sulfate (Plaquenil) 200 mg PO BID [facility] Last Admin: 02/26/20 08:50 Dose: 200 mg Ceftriaxone Sodium 1 gm/ (Sodium Chloride) 50 mls @ 100 mls/hr IV Q24H [facility] Last Admin: 02/25/20 13:56 Dose: 100 mls/hr Lactobacillus Rhamnosus (Culturelle) 1 cap PO BID [facility] Last Admin: 02/26/20 08:56 Dose: 1 cap Lorazepam (Ativan) 0.5 mg IVPUSH Q4H PRN PRN Reason: Nausea/Vomiting Magnesium Hydroxide (Milk Of Magnesia) 30 ml PO Q12H PRN PRN Reason: Constipation Melatonin (Melatonin) 9 mg PO BEDTIME [facility] Last Admin: 02/25/20 21:02 Dose: 9 mg Metoprolol Succinate (Toprol Xl) 25 mg PO DAILY [facility] Last Admin: 02/26/20 08:56 Dose: 25 mg Nystatin (Mycostatin) 5 ml PO QID [facility] Last Admin: 02/26/20 10:38 Dose: 5 ml Ondansetron HCl (Zofran Odt) 4 mg PO Q6H PRN PRN Reason: Nausea able to take PO Ondansetron HCl (Zofran) 4 mg IV Q6H PRN PRN Reason: Nausea/Vomiting Oxybutynin Chloride (Oxybutynin) 5 mg PO BEDTIME [facility] Last Admin: 02/25/20 21:02 Dose: 5 mg Pantoprazole Sodium (Protonix) 40 mg PO ACBREAKFAST [facility] Last Admin: 02/26/20 08:56 Dose: 40 mg Potassium Chloride (Klor-Con M20) 40 meq PO BID [facility] Stop: 02/26/20 21:01 Last Admin: 02/26/20 10:38 Dose: 40 meq Prednisone (Prednisone) 7.5 mg PO DAILY [facility] Last Admin: 02/26/20 08:50 Dose: 7.5 mg Ropinirole HCl (Requip) 1 mg PO BEDTIME [facility] Last Admin: 02/25/20 21:03 Dose: 1 mg Senna/Docusate Sodium (Senna Plus) 1 tab PO BID PRN PRN Reason: Constipation Sodium Chloride (Saline Flush) 10 ml FLUSH ASDIRECTED PRN PRN Reason: Keep Vein Open Last Admin: 02/23/20 11:46 Dose: 10 ml Tamsulosin HCl (Flomax) 0.4 mg PO DAILY [facility] Last Admin: 02/26/20 08:50 Dose: 0.4 mg Discontinued Medications Acetaminophen (Tylenol Extra Strength) 1,000 mg PO TID [facility] Acetaminophen (Tylenol) 650 mg PO Q4H PRN PRN Reason: Pain (Mild 1-3)/fever Lactated Ringer's (Ringers, Lactated) 1,000 mls @ 500 mls/hr IV ASDIRECTED [facility] Last Admin: 02/23/20 12:36 Dose: 500 mls/hr Ceftriaxone Sodium 1 gm/ (Sodium Chloride) 50 mls @ 100 mls/hr IV ONETIME ONE Stop: 02/23/20 13:14 Last Admin: 02/23/20 12:42 Dose: 100 mls/hr Sodium Chloride (Normal Saline) 1,000 mls @ 75 mls/hr IV ASDIRECTED [facility] Last Admin: 02/25/20 09:05 Dose: 75 mls/hr - Exam Quality Assessment: Supplemental Oxygen General: Alert, Oriented, Cooperative, No Acute Distress Lungs: Normal Respiratory Effort, Crackles (left lung base) Cardiovascular: Regular Rate, Regular Rhythm GI/Abdominal Exam: Soft, No Distention Extremities: No Pedal Edema. No: Increased Warmth Psy/Mental Status: Alert Sepsis Event Note - Evaluation Sepsis Screening Result: Severe Sepsis Risk - Focused Exam Vital Signs: Vital Signs Temp Pulse Pulse Resp BP BP Pulse Ox 02/26/20 08:57 36.4 C 71 20 100/68 91 L 02/26/20 08:56 71 100/68 02/26/20 08:51 100/68 02/26/20 07:11 58 L 02/26/20 03:00 37.2 C 72 22 H 147/81 H 94 L Date Exam was Performed: 02/26/20 Time Exam was Performed: 13:31 - Problem List & Annotations (1) Left lower lobe pneumonia SNOMED Code(s): 336518558 Code(s): J18.9 - PNEUMONIA, UNSPECIFIED ORGANISM Status: Acute Current Visit: Yes Qualifiers: Pneumonia type: due to unspecified organism Qualified Code(s): J18.9 - Pneumonia, unspecified organism (2) Acute respiratory failure with hypoxia SNOMED Code(s): 66535732, 975192739 Code(s): J96.01 - ACUTE RESPIRATORY FAILURE WITH HYPOXIA Status: Acute Current Visit: Yes (3) Acute kidney injury superimposed on chronic kidney disease SNOMED Code(s): 35219542 Code(s): N17.9 - ACUTE KIDNEY FAILURE, UNSPECIFIED; N18.9 - CHRONIC KIDNEY DISEASE, UNSPECIFIED Status: Acute Current Visit: Yes (4) Anemia SNOMED Code(s): 094175236 Code(s): D64.9 - ANEMIA, UNSPECIFIED Status: Acute Current Visit: Yes Qualifiers: Anemia type: unspecified type Qualified Code(s): D64.9 - Anemia, unspecified (5) Rheumatoid arthritis SNOMED Code(s): 18894011 Code(s): M06.9 - RHEUMATOID ARTHRITIS, UNSPECIFIED Status: Chronic Current Visit: Yes Qualifiers: Rheumatoid arthritis location: multiple sites - Problem List Review Problem List Initiated/Reviewed/Updated: Yes - My Orders Last 24 Hours: My Active Orders 02/25/20 11:14 Convert IV to Saline Lock [OM.PC] Routine 02/25/20 11:15 Up to Chair [RC] QID 02/26/20 10:30 Potassium Chloride [Klor-Con M20] 40 meq PO BID 02/27/20 05:00 BASIC METABOLIC PANEL,BMP [CHEM] Timed CBC W/O DIFF,HEMOGRAM [HEME] Timed (1) - Plan Plan:: ASSESSMENT AND PLAN - Left lower lobe pneumonia-complicated by acute respiratory failure with hypoxia. Still requiring supplemental oxygen slowly improving. White blood cell count is stable but clinically he looks better today. Strength and energy are improving. Sputum culture was negative. -Antibiotic coverage with ceftriaxone and doxycycline -Supplement oxygen -Symptomatic management of cough -Acapella -Up to chair Acute on chronic kidney disease-significant decline in kidney function from baseline kidney function has remained. Stable but has not improved as I would have expected so far. -Hold hydrochlorothiazide and lisinopril -Saline lock IV -Labs in the morning Anemia-suspect anemia of chronic disease with contribution from renal disease. No recent issues with bleeding. Hemoglobin slightly lower today with no evidence for bleeding. -Repeat hemoglobin in the morning, transfuse if less than 7 Rheumatoid arthritis-symptoms are stable. He is on chronic immunosuppressive therapy with hydroxychloroquine. Essential hypertension-he is on multiple antihypertensives at this time. Lisinopril and hydrochlorothiazide will be held but others will be continued. Maintenance issues - - DVT prophylaxis -CATHY stockings - GI prophylaxis -PPI - Nutrition -regular Disposition -I would anticipate discharge back to the assisted living facility after the hospital stay. Facility will not be able to accept him until Thursday because of the holiday weekend. Primary care physician - Dr Richie Ozuna M.D.
[2020-02-26] MEDS: cefTRIAXone 1 GM in Sodium Chloride 0.9% 50 ML IV SCH (13:24)
[2020-02-26] MEDS: Melatonin 3 MG Tab PO SCH (20:46)
[2020-02-26] MEDS: rOPINIRole 1 MG Tab PO SCH (20:48)
[2020-02-26] MEDS: Oxybutynin 5 MG Tab PO SCH (20:48)
[2020-02-27] MEDS: Doxycycline 100 MG Cap PO SCH ×2 (06:13→18:46)
[2020-02-27] MEDS: Nystatin Susp 100,000 Unit/ML 5 ML UD Cup PO SCH ×4 (06:13→22:09)
[2020-02-27] MEDS: Albuterol/Ipratropium 3.0-0.5 MG/3 ML Neb Soln NEB SCH ×4 (07:20→20:19)
[2020-02-27] MEDS: Glycopyrrolate 15.6 MCG Cap.W.Dev Kit of 6 IH SCH ×2 (07:21→20:22)
[2020-02-27] MEDS: Pantoprazole 40 MG Tab.CR PO SCH (07:59)
[2020-02-27] MEDS: Lactobacillus Rhamnosus GG (Probiotic) Cap PO SCH ×2 (08:07→20:19)
[2020-02-27] MEDS: hydrALAZINE 10 MG Tab PO SCH ×2 (08:07→20:20)
[2020-02-27] MEDS: amLODIPine 10 MG Tab PO SCH (08:08)
[2020-02-27] MEDS: predniSONE 5 MG Tab PO SCH (08:08)
[2020-02-27] MEDS: Tamsulosin 0.4 MG Cap.ER PO SCH (08:08)
[2020-02-27] MEDS: Acetaminophen 500 MG Tab PO SCH ×3 (08:09→20:21)
[2020-02-27] MEDS: Metoprolol Succinate 25 MG Tab.ER PO SCH (08:09)
[2020-02-27] MEDS: Finasteride 5 MG Tab PO SCH (08:09)
[2020-02-27] MEDS: Hydroxychloroquine 200 MG Tab PO SCH ×2 (08:09→20:21)
--- NOTE | 2020-02-27 12:08 | PCM.PN ---
- General Info Date of Service: 02/27/20 Subjective Update: Mr. Villeda has remained stable since yesterday. He reports less shortness of breath and less cough. Continues to require use of supplemental oxygen to maintain adequate oxygenation. Vital signs have been stable and he has remained afebrile. Functional Status: Reports: Tolerating Diet, Urinating - Review of Systems General: Reports: Weakness. Denies: Fever, Chills Pulmonary: Reports: Shortness of Breath, Cough. Denies: Sputum, Hemoptysis, Wheezing Cardiovascular: Reports: No Symptoms Gastrointestinal: Reports: No Symptoms - Patient Data Vitals - Most Recent: Last Vital Signs Temp 94.3 F L 02/27/20 11:00 Pulse 60 02/27/20 11:05 Resp 20 02/27/20 11:00 BP 135/70 02/27/20 11:00 Pulse Ox 93 L 02/27/20 11:00 Weight - Most Recent: 155 lb I&O - Last 24 Hours: Intake & Output 02/26/20 02/27/20 02/27/20 22:59 06:59 14:59 Intake Total 840 700 Output Total 450 Balance 390 700 Lab Results Last 24 Hours: Laboratory Results - last 24 hr 02/27/20 02/27/20 Range/Units 05:59 05:59 WBC 13.1 H (4.5-11.0) K/uL RBC 2.42 L (4.30-5.90) M/uL Hgb 7.4 L (12.0-15.0) g/dL Hct 23.4 L (40.0-54.0) % MCV 97 (80-98) fL MCH 31 (27-31) pg MCHC 32 (32-36) % Plt Count 267 (150-400) K/uL Sodium 139 L (140-148) mmol/L Potassium 4.3 (3.6-5.2) mmol/L Chloride 108 (100-108) mmol/L Carbon Dioxide 19 L (21-32) mmol/L Anion Gap 16.3 H (5.0-14.0) mmol/L BUN 36 H (7-18) mg/dL Creatinine 3.2 H (0.8-1.3) mg/dL Est Cr Clr Drug Dosing 19.22 mL/min Estimated GFR (MDRD) 19 L (>60) Glucose 116 H (74-106) mg/dL Calcium 7.2 L (8.5-10.1) mg/dL Jules Results Last 24 Hours: Microbiology 02/23/20 12:45 Aerobic Blood Culture - Preliminary Blood - Arm, Right NO GROWTH AFTER 3 DAYS Anaerobic Blood Culture - Preliminary NO GROWTH AFTER 3 DAYS 02/23/20 12:50 Aerobic Blood Culture - Preliminary Blood - Arm, Left NO GROWTH AFTER 3 DAYS Anaerobic Blood Culture - Preliminary NO GROWTH AFTER 3 DAYS 02/24/20 08:52 Gram Stain - Final Sputum - Expectorated Respiratory Culture - Final NORMAL RESPIRATORY RAE 2 DAYS Med Orders - Current: Current Medications Acetaminophen (Tylenol Extra Strength) 1,000 mg PO TID [facility] Last Admin: 02/27/20 08:09 Dose: 1,000 mg Albuterol (Proventil Neb Soln) 2.5 mg NEB Q4H PRN PRN Reason: Shortness Of Breath/wheezing Albuterol/Ipratropium (Duoneb 3.0-0.5 Mg/3 Ml) 3 ml NEB QIDRT [facility] Last Admin: 02/27/20 10:56 Dose: 3 ml Amlodipine Besylate (Norvasc) 10 mg PO DAILY [facility] Last Admin: 02/27/20 08:08 Dose: 10 mg Benzonatate (Tessalon Perles) 100 mg PO TID PRN PRN Reason: Cough Doxycycline Hyclate (Vibramycin) 100 mg PO Q12H [facility] Last Admin: 02/27/20 06:13 Dose: 100 mg Finasteride (Proscar) 10 mg PO DAILY [facility] Last Admin: 02/27/20 08:09 Dose: 10 mg Glycopyrrolate (Seebri Neohaler) 15.6 mcg IH BIDRT [facility] Last Admin: 02/27/20 07:21 Dose: 1 cap Guaifenesin/Dextromethorphan (Robitussin Dm) 10 ml PO Q4H PRN PRN Reason: Cough Hydralazine HCl (Apresoline) 10 mg PO Q12H [facility] Last Admin: 02/27/20 08:07 Dose: 10 mg Hydroxychloroquine Sulfate (Plaquenil) 200 mg PO BID [facility] Last Admin: 02/27/20 08:09 Dose: 200 mg Ceftriaxone Sodium 1 gm/ (Sodium Chloride) 50 mls @ 100 mls/hr IV Q24H [facility] Last Admin: 02/26/20 13:24 Dose: 100 mls/hr Lactobacillus Rhamnosus (Culturelle) 1 cap PO BID [facility] Last Admin: 02/27/20 08:07 Dose: 1 cap Lorazepam (Ativan) 0.5 mg IVPUSH Q4H PRN PRN Reason: Nausea/Vomiting Magnesium Hydroxide (Milk Of Magnesia) 30 ml PO Q12H PRN PRN Reason: Constipation Melatonin (Melatonin) 9 mg PO BEDTIME [facility] Last Admin: 02/26/20 20:46 Dose: 9 mg Metoprolol Succinate (Toprol Xl) 25 mg PO DAILY [facility] Last Admin: 02/27/20 08:09 Dose: 25 mg Nystatin (Mycostatin) 5 ml PO QID [facility] Last Admin: 02/27/20 10:05 Dose: 5 ml Ondansetron HCl (Zofran Odt) 4 mg PO Q6H PRN PRN Reason: Nausea able to take PO Ondansetron HCl (Zofran) 4 mg IV Q6H PRN PRN Reason: Nausea/Vomiting Oxybutynin Chloride (Oxybutynin) 5 mg PO BEDTIME [facility] Last Admin: 02/26/20 20:48 Dose: 5 mg Pantoprazole Sodium (Protonix) 40 mg PO ACBREAKFAST [facility] Last Admin: 02/27/20 07:59 Dose: 40 mg Prednisone (Prednisone) 7.5 mg PO DAILY [facility] Last Admin: 02/27/20 08:08 Dose: 7.5 mg Ropinirole HCl (Requip) 1 mg PO BEDTIME [facility] Last Admin: 02/26/20 20:48 Dose: 1 mg Senna/Docusate Sodium (Senna Plus) 1 tab PO BID PRN PRN Reason: Constipation Sodium Chloride (Saline Flush) 10 ml FLUSH ASDIRECTED PRN PRN Reason: Keep Vein Open Last Admin: 02/23/20 11:46 Dose: 10 ml Tamsulosin HCl (Flomax) 0.4 mg PO DAILY [facility] Last Admin: 02/27/20 08:08 Dose: 0.4 mg Discontinued Medications Acetaminophen (Tylenol Extra Strength) 1,000 mg PO TID [facility] Acetaminophen (Tylenol) 650 mg PO Q4H PRN PRN Reason: Pain (Mild 1-3)/fever Lactated Ringer's (Ringers, Lactated) 1,000 mls @ 500 mls/hr IV ASDIRECTED [facility] Last Admin: 02/23/20 12:36 Dose: 500 mls/hr Ceftriaxone Sodium 1 gm/ (Sodium Chloride) 50 mls @ 100 mls/hr IV ONETIME ONE Stop: 02/23/20 13:14 Last Admin: 02/23/20 12:42 Dose: 100 mls/hr Sodium Chloride (Normal Saline) 1,000 mls @ 75 mls/hr IV ASDIRECTED [facility] Last Admin: 02/25/20 09:05 Dose: 75 mls/hr Potassium Chloride (Klor-Con M20) 40 meq PO BID [facility] Stop: 02/26/20 21:01 Last Admin: 02/26/20 20:46 Dose: 40 meq - Exam Quality Assessment: DVT Prophylaxis General: Alert, Oriented, Cooperative, Mild Distress Lungs: Clear to Auscultation, Normal Respiratory Effort, Decreased Breath Sounds. No: Rales, Rhonchi, Wheezing Cardiovascular: Regular Rate, Regular Rhythm, No Murmurs GI/Abdominal Exam: Soft, Non-Tender, No Organomegaly, No Distention Extremities: Non-Tender, No Pedal Edema Sepsis Event Note - Evaluation Sepsis Screening Result: No Definite Risk - Focused Exam Vital Signs: Vital Signs Temp Pulse Pulse Resp BP BP BP 02/27/20 11:05 60 02/27/20 11:00 94.3 F L 65 20 135/70 02/27/20 08:09 81 138/64 02/27/20 08:08 138/64 02/27/20 08:07 138/64 02/27/20 07:30 86 02/27/20 07:00 88 20 141/69 H 02/27/20 02:34 96 F L 66 20 150/68 H Pulse Ox 02/27/20 11:05 02/27/20 11:00 93 L 02/27/20 08:09 02/27/20 08:08 02/27/20 08:07 02/27/20 07:30 02/27/20 07:00 98 02/27/20 02:34 93 L Date Exam was Performed: 02/27/20 Time Exam was Performed: 12:05 - Problem List Review Problem List Initiated/Reviewed/Updated: Yes - Plan Plan:: ASSESSMENT AND PLAN - Left lower lobe pneumonia-complicated by acute respiratory failure with hypoxia. Still requiring supplemental oxygen slowly improving. White blood cell count is stable but clinically he looks better today. Strength and energy are improving. Sputum culture was negative. -Antibiotic coverage with ceftriaxone and doxycycline -Supplement oxygen -Symptomatic management of cough -Acapella -Up to chair Acute on chronic kidney disease-significant decline in kidney function from baseline kidney function has remained. Stable but has not improved as I would have expected so far. -Hold hydrochlorothiazide and lisinopril -Saline lock IV -Labs in the morning Anemia-suspect anemia of chronic disease with contribution from renal disease. No recent issues with bleeding. Rheumatoid arthritis-symptoms are stable. He is on chronic immunosuppressive therapy with hydroxychloroquine. Essential hypertension-he is on multiple antihypertensives at this time. Lisinopril and hydrochlorothiazide will be held but others will be continued. Maintenance issues - - DVT prophylaxis -CATHY stockings - GI prophylaxis -PPI - Nutrition -regular Disposition -I would anticipate discharge back to the assisted living facility after the hospital stay. Facility will not be able to accept him until Thursday because of the holiday weekend. Primary care physician - Dr Quiroz
[2020-02-27] MEDS: cefTRIAXone 1 GM in Sodium Chloride 0.9% 50 ML IV SCH (13:23)
[2020-02-27] MEDS: Melatonin 3 MG Tab PO SCH (20:19)
[2020-02-27] MEDS: rOPINIRole 1 MG Tab PO SCH (20:20)
[2020-02-27] MEDS: Oxybutynin 5 MG Tab PO SCH (20:21)
[2020-02-28] MEDS: Nystatin Susp 100,000 Unit/ML 5 ML UD Cup PO SCH ×2 (06:01→10:31)
[2020-02-28] MEDS: Doxycycline 100 MG Cap PO SCH (06:02)
[2020-02-28] MEDS: Glycopyrrolate 15.6 MCG Cap.W.Dev Kit of 6 IH SCH (07:03)
[2020-02-28] MEDS: Albuterol/Ipratropium 3.0-0.5 MG/3 ML Neb Soln NEB SCH ×2 (07:04→10:54)
[2020-02-28] MEDS: Pantoprazole 40 MG Tab.CR PO SCH (07:32)
[2020-02-28] MEDS: amLODIPine 10 MG Tab PO SCH (08:18)
[2020-02-28] MEDS: Metoprolol Succinate 25 MG Tab.ER PO SCH (08:19)
[2020-02-28] MEDS: hydrALAZINE 10 MG Tab PO SCH (08:19)
[2020-02-28] MEDS: Finasteride 5 MG Tab PO SCH (08:19)
[2020-02-28] MEDS: Lactobacillus Rhamnosus GG (Probiotic) Cap PO SCH (08:19)
[2020-02-28] MEDS: Acetaminophen 500 MG Tab PO SCH (08:19)
[2020-02-28] MEDS: predniSONE 5 MG Tab PO SCH (08:19)
[2020-02-28] MEDS: Tamsulosin 0.4 MG Cap.ER PO SCH (08:19)
[2020-02-28] MEDS: Hydroxychloroquine 200 MG Tab PO SCH (08:20)
--- NOTE | 2020-02-28 10:12 | PCM.DCSUM1 ---
Discharge Summary - Hospital Course Brief History: Mr. Villeda is a 79-year-old gentleman who was admitted through the emergency department with shortness of breath secondary to underlying pneumonia. - Discharge Data Discharge Date: 02/28/20 Discharge Disposition: DC/Tfer to [facility] Condition: Fair - Referral to [facility] Primary Care Physician: PCP None - Discharge Diagnosis/Problem(s) (1) Left lower lobe pneumonia SNOMED Code(s): 873147579 ICD Code: J18.9 - PNEUMONIA, UNSPECIFIED ORGANISM Status: Acute Current Visit: Yes Qualifiers: Pneumonia type: due to unspecified organism Qualified Code(s): J18.9 - Pneumonia, unspecified organism (2) Acute respiratory failure with hypoxia SNOMED Code(s): 24196247, 774452600 ICD Code: J96.01 - ACUTE RESPIRATORY FAILURE WITH HYPOXIA Status: Acute Current Visit: Yes (3) Acute kidney injury superimposed on chronic kidney disease SNOMED Code(s): 97881431 ICD Code: N17.9 - ACUTE KIDNEY FAILURE, UNSPECIFIED; N18.9 - CHRONIC KIDNEY DISEASE, UNSPECIFIED Status: Acute Current Visit: Yes - Patient Summary/Data Consults: Consultations 02/24/20 07:00 PT Evaluation and Treatment [CONS] Routine Please Evaluate and Treat. PT Reason for Consult: Strengthening This query below is only for informational purposes and is not editable. Hospital Course: Mr. Villeda is a 79-year-old gentleman who presented to the emergency room with cough and shortness of breath. He reports a couple of days of progressive symptoms. He has been coughing a lot but does not produce much sputum. Shortness of breath is described as moderate. No complaints of chest pain or pain with breathing. He does not think he has had any fevers. He does report that his appetite and energy have both decreased over the past couple of days. Strength seems to be declining as well. No complaints of nausea or abdominal pain. Work-up in the emergency room was suggestive of a left lower lobe pneumonia with acute respiratory failure with hypoxia. His creatinine is down from baseline. White blood cell count is elevated. He will be admitted for management of the pneumonia. He has received ceftriaxone and will be receiving doxycycline in the emergency room. On admission he was given inhaler therapy as well as IV fluids for hydration. White blood cell count improved during hospital stay but had not normalized by the time of discharge. He had remained afebrile with stable vital signs. He continued to require supplemental oxygen during hospitalization to maintain adequate oxygenation. On the day of discharge he was noted to have oxygen saturation of 86% on room air at rest. He will be prescribed home oxygen 2 L/min via nasal cannula. He will be discharged home on an additional 3 days of oral antibiotic therapy with doxycycline 100 mg twice daily. He will also be on probiotic therapy twice daily and should remain on this over the next few months. Activity will be as tolerated and he will resume his usual diet. Follow-up appointment will be scheduled with his primary care provider within 1 week and a chest x-ray will be obtained at the time of follow-up appointment. - Patient Instructions Diet: Low Sodium Activity: As Tolerated Other/Special Instructions: Please schedule follow-up appointment with primary care provider within 1 week. Chest x-ray should be obtained at the time of follow-up appointment, to check that infiltrate has resolved. - Discharge Plan *PRESCRIPTION DRUG MONITORING PROGRAM REVIEWED*: Not Applicable *COPY OF PRESCRIPTION DRUG MONITORING REPORT IN PATIENT KAYLIE: Not Applicable Prescriptions/Med Rec: Doxycycline [Vibramycin] 100 mg PO Q12H #6 cap Lactobacillus Rhamnosus GG [Culturelle] 1 cap PO BID #60 cap Home Medications: Home Meds Calcium Carbonate/Vitamin D3 [Caltrate 600+D 1500 MG-400 Units] 1 tab PO TID [History] Multivitamins/Iron/Folic Acid [Cerovite Advanced Formula] 1 tab PO DAILY [History] Omeprazole 40 mg PO DAILY 12/25/13 [History] Tamsulosin HCl 0.4 mg PO DAILY 12/25/13 [History] amLODIPine Besylate [Amlodipine Besylate] 10 mg PO DAILY 12/25/13 [History] Ibuprofen [Motrin] 800 mg PO Q6HR PRN 01/28/16 [History] Triamcinolone Acetonide [Kenalog 0.1% Crm] 0.1 percent TOP TID PRN 01/28/16 [ History] Azelastine [Optivar 0.05% Ophth Soln] 1 drop TOP BID 12/20/16 [History] Finasteride [Proscar] 10 mg PO DAILY 12/20/16 [History] Oxybutynin 5 mg PO BEDTIME 12/20/16 [History] rOPINIRole HCl [Requip] 1 mg PO BEDTIME 12/20/16 [History] Alendronate Sodium [Fosamax] 70 mg PO Q7D 10/21/18 [History] Bacitracin [Bacitracin Oint] 1 applic TOP BID PRN 10/21/18 [History] Hydroxychloroquine Sulfate [Plaquenil] 200 mg PO BID 10/21/18 [History] Lisinopril 20 mg PO DAILY 10/21/18 [History] Nystatin [Mycostatin] 5 ml PO QID PRN 10/21/18 [History] Potassium Chloride 15 ml PO DAILY 10/21/18 [History] Tiotropium [Spiriva HandiHaler] 2 puff INH DAILY 10/21/18 [History] predniSONE [Prednisone] 7.5 mg PO DAILY 10/21/18 [History] Acetaminophen 1,000 mg PO TID 10/22/18 [History] Loperamide [Imodium] 2 mg PO ASDIRECTED 10/22/18 [History] Magnesium Hydroxide [Milk of Magnesia] 30 ml PO DAILY 10/22/18 [History] Fluticasone Propionate [Flonase] 2 sprays NS DAILY 12/22/19 [History] Ipratropium [Atrovent 0.06% Nasal Greer] 2 puff NASBOTH BEDTIME 12/22/19 [ History] Metoprolol Succinate [Toprol XL] 25 mg PO DAILY 12/22/19 [History] hydroCHLOROthiazide [Hydrochlorothiazide] 25 mg PO DAILY 12/22/19 [History] Naproxen 500 mg PO BID 12/23/19 [History] Starch [Thick-It] 1 scoop PO ASDIRECTED 12/23/19 [History] hydrALAZINE [Apresoline] 10 mg PO Q12HR 02/23/20 [History] Doxycycline [Vibramycin] 100 mg PO Q12H #6 cap 02/28/20 [Rx] Lactobacillus Rhamnosus GG [Culturelle] 1 cap PO BID #60 cap 02/28/20 [Rx] Oxygen Therapy Mode: Nasal Cannula Oxygen Flow Rate (L/min): 2 Maintain SPO2% less than: 92 Maintain SpO2% greater than: 88 Referrals: Rohith Quiroz MD [Physician] - - Discharge Summary/Plan Comment DC Time >30 min.: No - Patient Data Vitals - Most Recent: Last Vital Signs Temp 96.1 F L 02/28/20 06:54 Pulse 74 02/28/20 08:19 Resp 22 H 02/28/20 06:54 BP 127/71 02/28/20 08:19 Pulse Ox 2 L 02/28/20 06:54 Weight - Most Recent: 155 lb I&O - Last 24 hours: Intake & Output 02/27/20 02/28/20 02/28/20 22:59 06:59 14:59 Intake Total 840 590 Output Total 400 200 Balance 440 390 JANELLE Results - Last 24 hrs: Microbiology 02/23/20 12:50 Aerobic Blood Culture - Preliminary Blood - Arm, Left NO GROWTH AFTER 4 DAYS Anaerobic Blood Culture - Preliminary NO GROWTH AFTER 4 DAYS 02/23/20 12:45 Aerobic Blood Culture - Preliminary Blood - Arm, Right NO GROWTH AFTER 4 DAYS Anaerobic Blood Culture - Preliminary NO GROWTH AFTER 4 DAYS Med Orders - Current: Current Medications Acetaminophen (Tylenol Extra Strength) 1,000 mg PO TID [facility] Last Admin: 02/28/20 08:19 Dose: 1,000 mg Albuterol (Proventil Neb Soln) 2.5 mg NEB Q4H PRN PRN Reason: Shortness Of Breath/wheezing Last Admin: 02/28/20 02:06 Dose: 2.5 mg Albuterol/Ipratropium (Duoneb 3.0-0.5 Mg/3 Ml) 3 ml NEB QIDRT [facility] Last Admin: 02/28/20 07:04 Dose: 3 ml Amlodipine Besylate (Norvasc) 10 mg PO DAILY [facility] Last Admin: 02/28/20 08:18 Dose: 10 mg Benzonatate (Tessalon Perles) 100 mg PO TID PRN PRN Reason: Cough Last Admin: 02/28/20 02:10 Dose: 100 mg Doxycycline Hyclate (Vibramycin) 100 mg PO Q12H [facility] Last Admin: 02/28/20 06:02 Dose: 100 mg Finasteride (Proscar) 10 mg PO DAILY [facility] Last Admin: 02/28/20 08:19 Dose: 10 mg Glycopyrrolate (Seebri Neohaler) 15.6 mcg IH BIDRT [facility] Last Admin: 02/28/20 07:03 Dose: 1 inh Guaifenesin/Dextromethorphan (Robitussin Dm) 10 ml PO Q4H PRN PRN Reason: Cough Last Admin: 02/28/20 02:05 Dose: 10 ml Hydralazine HCl (Apresoline) 10 mg PO Q12H [facility] Last Admin: 02/28/20 08:19 Dose: 10 mg Hydroxychloroquine Sulfate (Plaquenil) 200 mg PO BID [facility] Last Admin: 02/28/20 08:20 Dose: 200 mg Ceftriaxone Sodium 1 gm/ (Sodium Chloride) 50 mls @ 100 mls/hr IV Q24H [facility] Last Admin: 02/27/20 13:23 Dose: 100 mls/hr Lactobacillus Rhamnosus (Culturelle) 1 cap PO BID [facility] Last Admin: 02/28/20 08:19 Dose: 1 cap Lorazepam (Ativan) 0.5 mg IVPUSH Q4H PRN PRN Reason: Nausea/Vomiting Magnesium Hydroxide (Milk Of Magnesia) 30 ml PO Q12H PRN PRN Reason: Constipation Melatonin (Melatonin) 9 mg PO BEDTIME [facility] Last Admin: 02/27/20 20:19 Dose: 9 mg Metoprolol Succinate (Toprol Xl) 25 mg PO DAILY [facility] Last Admin: 02/28/20 08:19 Dose: 25 mg Nystatin (Mycostatin) 5 ml PO QID [facility] Last Admin: 02/28/20 06:01 Dose: 5 ml Ondansetron HCl (Zofran Odt) 4 mg PO Q6H PRN PRN Reason: Nausea able to take PO Ondansetron HCl (Zofran) 4 mg IV Q6H PRN PRN Reason: Nausea/Vomiting Oxybutynin Chloride (Oxybutynin) 5 mg PO BEDTIME [facility] Last Admin: 02/27/20 20:21 Dose: 5 mg Pantoprazole Sodium (Protonix) 40 mg PO ACBREAKFAST [facility] Last Admin: 02/28/20 07:32 Dose: 40 mg Prednisone (Prednisone) 7.5 mg PO DAILY [facility] Last Admin: 02/28/20 08:19 Dose: 7.5 mg Ropinirole HCl (Requip) 1 mg PO BEDTIME [facility] Last Admin: 02/27/20 20:20 Dose: 1 mg Senna/Docusate Sodium (Senna Plus) 1 tab PO BID PRN PRN Reason: Constipation Sodium Chloride (Saline Flush) 10 ml FLUSH ASDIRECTED PRN PRN Reason: Keep Vein Open Last Admin: 02/23/20 11:46 Dose: 10 ml Tamsulosin HCl (Flomax) 0.4 mg PO DAILY [facility] Last Admin: 02/28/20 08:19 Dose: 0.4 mg Discontinued Medications Acetaminophen (Tylenol Extra Strength) 1,000 mg PO TID [facility] Acetaminophen (Tylenol) 650 mg PO Q4H PRN PRN Reason: Pain (Mild 1-3)/fever Lactated Ringer's (Ringers, Lactated) 1,000 mls @ 500 mls/hr IV ASDIRECTED [facility] Last Admin: 02/23/20 12:36 Dose: 500 mls/hr Ceftriaxone Sodium 1 gm/ (Sodium Chloride) 50 mls @ 100 mls/hr IV ONETIME ONE Stop: 02/23/20 13:14 Last Admin: 02/23/20 12:42 Dose: 100 mls/hr Sodium Chloride (Normal Saline) 1,000 mls @ 75 mls/hr IV ASDIRECTED [facility] Last Admin: 02/25/20 09:05 Dose: 75 mls/hr Potassium Chloride (Klor-Con M20) 40 meq PO BID [facility] Stop: 02/26/20 21:01 Last Admin: 02/26/20 20:46 Dose: 40 meq - Exam Quality Assessment: Reports: DVT Prophylaxis General: Reports: Alert, Oriented, Cooperative, No Acute Distress Lungs: Reports: Decreased Breath Sounds, Wheezing. Denies: Rales, Rhonchi, Rub Cardiovascular: Reports: Regular Rate, Regular Rhythm, No Murmurs GI/Abdominal Exam: Soft, Non-Tender, No Organomegaly, No Distention Extremities: Non-Tender, No Pedal Edema
[2020-02-28 10:38] VITALS: BP 141/60; PULSE 67
[2020-02-28] MEDS ORDERED: cefTRIAXone 1 GM in Sodium Chloride 0.9% 50 ML IV SCH (12:00)
== END 2020-02-28 13:56 | DRG 193 ==
LOC: JP.ED 11:37 → JP.MS 14:04
PROVIDERS: ADMIT Internal Medicine; ATTEND Hospitalist
DX: J18.9 Pneumonia, unspecified organism (principal); R09.02 Hypoxemia; J96.01 Acute respiratory failure with hypoxia; N17.9 Acute kidney failure, unspecified; I10 Essential (primary) hypertension; N18.9 Chronic kidney disease, unspecified; H54.7 Unspecified visual loss; J44.9 Chronic obstructive pulmonary disease, unspecified; K21.9 Gastro-esophageal reflux disease without esophagitis; I12.9 Hypertensive chronic kidney disease with stage 1 through stage 4 chronic kidney disease, or unspecified chronic kidney disease; D63.1 Anemia in chronic kidney disease; N40.1 Benign prostatic hyperplasia with lower urinary tract symptoms; Z88.6 Allergy status to analgesic agent; N39.498 Other specified urinary incontinence; G89.29 Other chronic pain; M54.9 Dorsalgia, unspecified; M19.90 Unspecified osteoarthritis, unspecified site; Z87.891 Personal history of nicotine dependence; Z79.52 Long term (current) use of systemic steroids; Z79.899 Other long term (current) drug therapy; Z86.010 Personal history of colon polyps; Z88.5 Allergy status to narcotic agent; Z88.0 Allergy status to penicillin
CPT/HCPCS: 36415; 71046; 80048; 84484; 85027; 87040 ×2; 96361; 96365; 99285; J0696; J7050; J7120; 81001; 83735; 87070; 87205; 94640; 94667; 94668; 97110-GP; 97161-GP; 97530-GP; 99284; A9270-GY; J7030; J7512; J7620-GY

== ENCOUNTER 2020-03-04 01:32 | Inpatient (IN) | payer MEDICARE ==
[2020-03-04] MEDS ORDERED: Furosemide 40 MG/4 ML VIAL IVPUSH ONE ×2 (01:40→01:46)
--- NOTE | 2020-03-04 02:04 | CRLCR ---
INDICATION: Shortness of breath TECHNIQUE: Chest 2 views. COMPARISON: 02/23/2020 FINDINGS: Cardiovascular and mediastinum: Heart size and vasculature are normal in caliber and appearance. Mediastinum is within normal limits. Lungs and pleural spaces: Left upper lobe airspace opacity not present on prior study. Right midlung nodular opacity not present on prior study. No sign of pleural effusion. No pneumothorax. Bones and soft tissues: No significant findings. IMPRESSION: Right midlung has opacity in left upper lobe airspace opacity not present on 02/22/2021 worrisome for pneumonia. Dictated by Paul Hopper MD @ 03/04/2020 2:03:32 AM Dictated by: Paul Hopper MD @ 03/04/2020 02:03:36 (Electronically Signed)
--- NOTE | 2020-03-04 02:11 | EDM.PDOC ---
ED HPI GENERAL MEDICAL PROBLEM - General Chief Complaint: Respiratory Problem Stated Complaint: MEDICAL VIA [facility] Time Seen by Provider: 03/04/20 02:08 Source of Information: Reports: Patient History Limitations: Reports: No Limitations - History of Present Illness INITIAL COMMENTS - FREE TEXT/NARRATIVE: pt arrived by ambulance with marked resp distress. He was recently in the hosp with a pneumonia. He has progressively been more sob. Onset: Gradual, Other (pt was recently hospitalized with a pneumonia. ) Duration: Hour(s): Location: Reports: Chest Associated Symptoms: Reports: Cough, Shortness of Breath - Related Data Allergies Allergy/AdvReac Type Severity Reaction Status Date / Time oxycodone HCl [From Percocet] Allergy Cannot Verified 02/23/20 12:31 Remember Penicillins Allergy Hives Verified 02/23/20 12:31 Home Meds: Home Meds Calcium Carbonate/Vitamin D3 [Caltrate 600+D 1500 MG-400 Units] 1 tab PO TID [History] Multivitamins/Iron/Folic Acid [Cerovite Advanced Formula] 1 tab PO DAILY [History] Omeprazole 40 mg PO DAILY 12/25/13 [History] Tamsulosin HCl 0.4 mg PO DAILY 12/25/13 [History] amLODIPine Besylate [Amlodipine Besylate] 10 mg PO DAILY 12/25/13 [History] Ibuprofen [Motrin] 800 mg PO Q6HR PRN 01/28/16 [History] Triamcinolone Acetonide [Kenalog 0.1% Crm] 0.1 percent TOP TID PRN 01/28/16 [ History] Azelastine [Optivar 0.05% Ophth Soln] 1 drop TOP BID 12/20/16 [History] Finasteride [Proscar] 5 mg PO DAILY 12/20/16 [History] Oxybutynin 5 mg PO BEDTIME 12/20/16 [History] rOPINIRole HCl [Requip] 1 mg PO BEDTIME 12/20/16 [History] Alendronate Sodium [Fosamax] 70 mg PO Q7D 10/21/18 [History] Bacitracin [Bacitracin Oint] 1 applic TOP BID PRN 10/21/18 [History] Hydroxychloroquine Sulfate [Plaquenil] 200 mg PO BID 10/21/18 [History] Lisinopril 20 mg PO DAILY 10/21/18 [History] Nystatin [Mycostatin] 5 ml PO QID PRN 10/21/18 [History] Potassium Chloride 15 ml PO DAILY 10/21/18 [History] Tiotropium [Spiriva HandiHaler] 1 puff INH DAILY 10/21/18 [History] predniSONE [Prednisone] 5 mg PO DAILY 10/21/18 [History] Acetaminophen 1,000 mg PO TID PRN 10/22/18 [History] Loperamide [Imodium] 2 mg PO ASDIRECTED PRN 10/22/18 [History] Magnesium Hydroxide [Milk of Magnesia] 30 ml PO DAILY 10/22/18 [History] Fluticasone Propionate [Flonase] 2 sprays NS DAILY 12/22/19 [History] Ipratropium [Atrovent 0.06% Nasal [place]] 2 puff NASBOTH BEDTIME 12/22/19 [ History] Metoprolol Succinate [Toprol XL] 25 mg PO DAILY 12/22/19 [History] hydroCHLOROthiazide [Hydrochlorothiazide] 25 mg PO DAILY 12/22/19 [History] Naproxen 500 mg PO BID 12/23/19 [History] Starch [Thick-It] 1 scoop PO ASDIRECTED 12/23/19 [History] hydrALAZINE [Apresoline] 10 mg PO BID 02/23/20 [History] Lactobacillus Rhamnosus GG [Culturelle] 1 cap PO BID 03/04/20 [History] Past Medical History HEENT History: Reports: Impaired Vision Cardiovascular History: Reports: Hypertension Respiratory History: Reports: COPD Gastrointestinal History: Reports: Colon Polyp, GERD, Pancreatitis Genitourinary History: Reports: BPH, Urinary Incontinence Musculoskeletal History: Reports: Back Pain, Chronic, Fracture, Osteoarthritis Neurological History: Reports: Other (See Below) 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 Psychiatric History: Reports: Addiction Other Psychiatric History: etoh Dermatologic History: Reports: Eczema - Infectious Disease History Infectious Disease History: Reports: Mumps - Past Surgical History GI Surgical History: Reports: Colonoscopy, Hernia, Inguinal, Other (See Below) Musculoskeletal Surgical History: Reports: Carpal Tunnel Social & Family History - Family History Family Medical History: Noncontributory - Caffeine Use Caffeine Use: Reports: Coffee ED ROS GENERAL - Review of Systems Review Of Systems: See Below Constitutional: Reports: Weakness, Fatigue, Diaphoresis HEENT: Reports: No Symptoms Respiratory: Reports: Shortness of Breath, Cough Cardiovascular: Reports: No Symptoms, Edema Endocrine: Reports: No Symptoms GI/Abdominal: Reports: No Symptoms : Reports: No Symptoms Musculoskeletal: Reports: No Symptoms Skin: Reports: No Symptoms Neurological: Reports: No Symptoms ED EXAM, GENERAL - Physical Exam Exam: See Below Free Text/Narrative:: p arrived very pale appearing with marked sob. He was recently hospitalized with a pneumonia. Exam Limited By: No Limitations General Appearance: Alert, Anxious, Severe Distress Ears: Normal TMs Nose: Normal Inspection Throat/Mouth: Normal Inspection Head: Atraumatic Neck: Normal Inspection Respiratory/Chest: Decreased Breath Sounds, Crackles, Rales Cardiovascular: Other ( edema present. ) GI/Abdominal: Soft, Non-Tender (Male) Exam: Deferred Rectal (Males) Exam: Deferred Back Exam: Normal Inspection Extremities: Pedal Edema Neurological: Alert Course - Vital Signs Last Recorded V/S: Last Vital Signs Temp 35.8 C L 03/04/20 02:30 Pulse 57 L 03/04/20 02:30 Resp 16 03/04/20 02:30 BP 137/70 03/04/20 02:30 Pulse Ox 87 L 03/04/20 02:30 - Orders/Labs/Meds Orders: Active Orders 24 hr Category Date Time Status EKG Documentation Completion [RC] ASDIRECTED Care 03/04/20 01:45 Active Helm Catheter Insertion [Insert Urinary Catheter] [OM. Care 03/04/20 02:15 Ordered PC] Q24H Urinary Catheter Assessment [RC] ASDIRECTED Care 03/04/20 02:09 Active CULTURE BLOOD [BC] Urgent Lab 03/04/20 02:05 Received CULTURE BLOOD [BC] Urgent Lab 03/04/20 02:30 Received UA W/MICROSCOPIC [URIN] Urgent Lab 03/04/20 02:21 Ordered Blood Culture x2 Reflex Set [OM.PC] Urgent Oth 03/04/20 01:59 Ordered EKG 12 Lead [EK] Routine Ther 03/04/20 01:45 Ordered Labs: Laboratory Tests 03/04/20 03/04/20 03/04/20 Range/Units 01:44 01:50 01:50 WBC 19.0 H (4.5-11.0) K/uL RBC 2.58 L (4.30-5.90) M/uL Hgb 7.8 L (12.0-15.0) g/dL Hct 25.6 L (40.0-54.0) % MCV 99 H (80-98) fL MCH 30 (27-31) pg MCHC 31 L (32-36) % Plt Count 374 (150-400) K/uL Neut % (Auto) 94 H (36-66) % Lymph % (Auto) 2 L (24-44) % Dickinson % (Auto) 4 (2-6) % Eos % (Auto) 0 L (2-4) % Baso % (Auto) 0 (0-1) % Puncture Site Lt radial ABG pH 7.338 L (7.350-7.450) ABG pCO2 40.5 (35.0-42.0) mmHg ABG pO2 69.3 L (75.0-100.0) mmHg ABG HCO3 21.1 L (22.0-26.0) mmol/L ABG Total CO2 20.5 L (23.0-27.0) mmol/L ABG O2 Saturation 92.4 L (95.0-98.0) % ABG O2 Content 9.8 L (15.0-23.0) %vol ABG Base Excess -3.8 mm/L ABG Hemoglobin 7.6 L (13.5-18.0) g/dL ABG Oxyhemoglobin 90.3 % ABG Carboxyhemoglobin 1.4 (0.0-1.6) % ABG Methemoglobin 0.9 % Monroe Test Pass O2 Delivery Device Non rebr mask Oxygen Flow Rate 10.0 L Sodium (140-148) mmol/L Potassium (3.6-5.2) mmol/L Chloride (100-108) mmol/L Carbon Dioxide (21-32) mmol/L Anion Gap (5.0-14.0) mmol/L BUN (7-18) mg/dL Creatinine (0.8-1.3) mg/dL Est Cr Clr Drug Dosing Estimated GFR (MDRD) (>60) Glucose (74-106) mg/dL Lactic Acid (0.4-2.0) mmol/L Calcium (8.5-10.1) mg/dL Total Bilirubin (0.2-1.0) mg/dL AST (15-37) U/L ALT (12-78) U/L Alkaline Phosphatase (46-116) U/L Troponin I < 0.017 (0.000-0.056) ng/mL NT-Pro-B Natriuret Pep (5-450) pg/mL Total Protein (6.4-8.2) g/dL Albumin (3.4-5.0) g/dL Globulin (2.3-3.5) g/dL Albumin/Globulin Ratio (1.2-2.2) 03/04/20 03/04/20 03/04/20 Range/Units 01:50 01:50 01:52 WBC (4.5-11.0) K/uL RBC (4.30-5.90) M/uL Hgb (12.0-15.0) g/dL Hct (40.0-54.0) % MCV (80-98) fL MCH (27-31) pg MCHC (32-36) % Plt Count (150-400) K/uL Neut % (Auto) (36-66) % Lymph % (Auto) (24-44) % Dickinson % (Auto) (2-6) % Eos % (Auto) (2-4) % Baso % (Auto) (0-1) % Puncture Site ABG pH (7.350-7.450) ABG pCO2 (35.0-42.0) mmHg ABG pO2 (75.0-100.0) mmHg ABG HCO3 (22.0-26.0) mmol/L ABG Total CO2 (23.0-27.0) mmol/L ABG O2 Saturation (95.0-98.0) % ABG O2 Content (15.0-23.0) %vol ABG Base Excess mm/L ABG Hemoglobin (13.5-18.0) g/dL ABG Oxyhemoglobin % ABG Carboxyhemoglobin (0.0-1.6) % ABG Methemoglobin % Monroe Test O2 Delivery Device Oxygen Flow Rate L Sodium 141 (140-148) mmol/L Potassium 5.5 H (3.6-5.2) mmol/L Chloride 110 H (100-108) mmol/L Carbon Dioxide 25 (21-32) mmol/L Anion Gap 11.5 (5.0-14.0) mmol/L BUN 51 H (7-18) mg/dL Creatinine 3.3 H (0.8-1.3) mg/dL Est Cr Clr Drug Dosing TNP Estimated GFR (MDRD) 18 L (>60) Glucose 169 H (74-106) mg/dL Lactic Acid 0.8 (0.4-2.0) mmol/L Calcium 7.8 L (8.5-10.1) mg/dL Total Bilirubin 0.2 (0.2-1.0) mg/dL AST 35 D (15-37) U/L ALT 35 D (12-78) U/L Alkaline Phosphatase 78 (46-116) U/L Troponin I (0.000-0.056) ng/mL NT-Pro-B Natriuret Pep 37386 H (5-450) pg/mL Total Protein 5.9 L (6.4-8.2) g/dL Albumin 1.8 L (3.4-5.0) g/dL Globulin 4.1 H (2.3-3.5) g/dL Albumin/Globulin Ratio 0.4 L (1.2-2.2) Meds: Medications Discontinued Medications Generic Name Dose Route Start Last Admin Trade Name Freq PRN Reason Stop Dose Admin Furosemide 40 mg 03/04/20 01:40 03/04/20 02:17 Lasix IVPUSH 03/04/20 01:41 Not Given ONETIME ONE Furosemide 60 mg 03/04/20 01:46 03/04/20 02:16 Lasix IVPUSH 03/04/20 01:47 60 mg ONETIME ONE Administration Methylprednisolone Sodium Succinate 125 mg 03/04/20 02:18 Solu-Medrol IVPUSH 03/04/20 02:19 ONETIME ONE - Re-Assessments/Exams Free Text/Narrative Re-Assessment/Exam: 03/04/20 02:45 pt arrived with marked sob and congestion. He was hospitalized over the week end with a pneumonia. He was not checked for Covid 19. Departure - Departure Time of Disposition: 02:52 Disposition: Admitted As Inpatient 68 Condition: Poor Clinical Impression: Bilateral pneumonia, Fluid overload, Renal insufficiency, DNR (do not resuscitate) Anemia Qualifiers: Anemia type: unspecified type Qualified Code(s): D64.9 - Anemia, unspecified - Discharge Information Referrals: PCP,None [Primary Care Provider] - Forms: ED Department Discharge Care Plan Goals: admit to Dr Shelton Sepsis Event Note - Focused Exam Vital Signs: Vital Signs Temp Pulse Resp BP Pulse Ox 03/04/20 02:30 35.8 C L 57 L 16 137/70 87 L 03/04/20 01:59 35.8 C L 57 L 16 137/70 87 L Date Exam was Performed: 03/04/20 Time Exam was Performed: 02:54 - My Orders Last 24 Hours: My Active Orders 03/04/20 01:45 EKG Documentation Completion [RC] ASDIRECTED EKG 12 Lead [EK] Routine 03/04/20 01:59 Blood Culture x2 Reflex Set [OM.PC] Urgent 03/04/20 02:05 CULTURE BLOOD [BC] Urgent 03/04/20 02:09 Urinary Catheter Assessment [RC] ASDIRECTED 03/04/20 02:15 Helm Catheter Insertion [Insert Urinary Catheter] [OM.PC] Q24H 03/04/20 02:21 UA W/MICROSCOPIC [URIN] Urgent 03/04/20 02:30 CULTURE BLOOD [BC] Urgent - Assessment/Plan Last 24 Hours: My Active Orders 03/04/20 01:45 EKG Documentation Completion [RC] ASDIRECTED EKG 12 Lead [EK] Routine 03/04/20 01:59 Blood Culture x2 Reflex Set [OM.PC] Urgent 03/04/20 02:05 CULTURE BLOOD [BC] Urgent 03/04/20 02:09 Urinary Catheter Assessment [RC] ASDIRECTED 03/04/20 02:15 Helm Catheter Insertion [Insert Urinary Catheter] [OM.PC] Q24H 03/04/20 02:21 UA W/MICROSCOPIC [URIN] Urgent 03/04/20 02:30 CULTURE BLOOD [BC] Urgent
[2020-03-04] MEDS ORDERED: methylPREDNISolone Sodium Succinate 125 MG/2 ML SDV IVPUSH ONE (02:18)
[2020-03-04] MEDS ORDERED: Piperacillin/Tazobactam 2.25 GM in Sodium Chloride 0.9% 50 ML IV SCH (04:45)
[2020-03-04] MEDS ORDERED: Levofloxacin/Dextrose 5%-Water 750 MG in Premix Bag 1 BAG IV ONE (04:45)
--- NOTE | 2020-03-04 04:47 | PCM.HP.2 ---
H&P History of Present Illness - General Date of Service: 03/04/20 Admit Problem/Dx: Admission Diagnosis/Problem Admission Diagnosis/Problem Pneumonia Source of Information: Old Records, Provider, RN Notes Reviewed. No: Patient History Limitations: Reports: Uncooperative (Patient was sleeping heavily and unwilling or unable to awake enough to participate in discussion.) - History of Present Illness Initial Comments - Free Text/Narative: Mr. Villeda is a 79-year-old gentleman who was admitted through the emergency department with increased shortness of breath and hypoxia secondary to bilateral pneumonia. He was just discharged from this facility 5 days ago after being treated for a left lower lung pneumonia. He had improved during the hospitalization and was stable at the time of discharge. He has a longstanding history of COPD and remained hypoxic during his previous hospitalization requiring discharged home with supplemental oxygen. He is very sleepy at the present time and unable or unwilling to engage in further discussion concerning his recent symptoms or review of systems. On evaluation in the emergency department early this morning he was found to be hypoxic, chest x-ray shows new left and right lung infiltrates that were not present previously. White blood cell count is elevated, he has been hemodynamically stable and afebrile thus far. denies pain Pain Score (Numeric/FACES): 0 - Related Data Allergies/Adverse Reactions: Allergies Allergy/AdvReac Type Severity Reaction Status Date / Time oxycodone HCl [From Percocet] Allergy Cannot Verified 02/23/20 12:31 Remember Penicillins Allergy Hives Verified 02/23/20 12:31 Home Medications: Home Meds Calcium Carbonate/Vitamin D3 [Caltrate 600+D 1500 MG-400 Units] 1 tab PO TID [History] Multivitamins/Iron/Folic Acid [Cerovite Advanced Formula] 1 tab PO DAILY [History] Omeprazole 40 mg PO DAILY 12/25/13 [History] Tamsulosin HCl 0.4 mg PO DAILY 12/25/13 [History] amLODIPine Besylate [Amlodipine Besylate] 10 mg PO DAILY 12/25/13 [History] Ibuprofen [Motrin] 800 mg PO Q6HR PRN 01/28/16 [History] Triamcinolone Acetonide [Kenalog 0.1% Crm] 0.1 percent TOP TID PRN 01/28/16 [ History] Azelastine [Optivar 0.05% Ophth Soln] 1 drop TOP BID 12/20/16 [History] Finasteride [Proscar] 5 mg PO DAILY 12/20/16 [History] Oxybutynin 5 mg PO BEDTIME 12/20/16 [History] rOPINIRole HCl [Requip] 1 mg PO BEDTIME 12/20/16 [History] Alendronate Sodium [Fosamax] 70 mg PO Q7D 10/21/18 [History] Bacitracin [Bacitracin Oint] 1 applic TOP BID PRN 10/21/18 [History] Hydroxychloroquine Sulfate [Plaquenil] 200 mg PO BID 10/21/18 [History] Lisinopril 20 mg PO DAILY 10/21/18 [History] Nystatin [Mycostatin] 5 ml PO QID PRN 10/21/18 [History] Potassium Chloride 15 ml PO DAILY 10/21/18 [History] Tiotropium [Spiriva HandiHaler] 1 puff INH DAILY 10/21/18 [History] predniSONE [Prednisone] 5 mg PO DAILY 10/21/18 [History] Acetaminophen 1,000 mg PO TID PRN 10/22/18 [History] Loperamide [Imodium] 2 mg PO ASDIRECTED PRN 10/22/18 [History] Magnesium Hydroxide [Milk of Magnesia] 30 ml PO DAILY 10/22/18 [History] Fluticasone Propionate [Flonase] 2 sprays NS DAILY 12/22/19 [History] Ipratropium [Atrovent 0.06% Nasal Bear] 2 puff NASBOTH BEDTIME 12/22/19 [ History] Metoprolol Succinate [Toprol XL] 25 mg PO DAILY 12/22/19 [History] hydroCHLOROthiazide [Hydrochlorothiazide] 25 mg PO DAILY 12/22/19 [History] Naproxen 500 mg PO BID 12/23/19 [History] Starch [Thick-It] 1 scoop PO ASDIRECTED 12/23/19 [History] hydrALAZINE [Apresoline] 10 mg PO BID 02/23/20 [History] Lactobacillus Rhamnosus GG [Culturelle] 1 cap PO BID 03/04/20 [History] Past Medical History HEENT History: Reports: Impaired Vision Cardiovascular History: Reports: Hypertension Respiratory History: Reports: COPD Gastrointestinal History: Reports: Colon Polyp, GERD, Pancreatitis Genitourinary History: Reports: BPH, Urinary Incontinence Musculoskeletal History: Reports: Back Pain, Chronic, Fracture, Osteoarthritis Neurological History: Reports: Other (See Below) 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 Psychiatric History: Reports: Addiction Other Psychiatric History: etoh Hematologic History: Reports: Anticoagulation Therapy Dermatologic History: Reports: Eczema - Infectious Disease History Infectious Disease History: Reports: Mumps - Past Surgical History GI Surgical History: Reports: Colonoscopy, Hernia, Inguinal, Other (See Below) Musculoskeletal Surgical History: Reports: Carpal Tunnel Social & Family History - Family History Family Medical History: Noncontributory - Tobacco Use Smoking Status *Q: Never Smoker - Caffeine Use Caffeine Use: Reports: Coffee - Recreational Drug Use Recreational Drug Use: No H&P Review of Systems - Review of Systems: Review Of Systems: See Below General: Reports: ROS unobtainable (Sent is extremely sleepy, does awaken but not willing to engage in conversation) Exam - Exam Exam: See Below - Vital Signs Vital Signs: Last Vital Signs Temp 97.1 F 03/04/20 03:24 Pulse 56 L 03/04/20 03:24 Resp 26 H 03/04/20 03:24 BP 142/79 H 03/04/20 03:24 Pulse Ox 93 L 03/04/20 04:13 Weight: 165 lb - Exam Quality Assessment: Supplemental Oxygen, Urinary Catheter, DVT Prophylaxis General: Moderate Distress, Lethargic HEENT: Conjunctiva Clear, Normal Nasal Septum, Posterior Pharynx Clear, Pupils Equal. No: Mucosa Moist & [place] Neck: Supple, Trachea Midline, +2 Carotid Pulse wo Bruit Lungs: Decreased Breath Sounds, Wheezing. No: Rales, Rhonchi, Rub Cardiovascular: Regular Rate, Regular Rhythm, Normal S1, Normal S2. No: Systolic Murmur, Diastolic Murmur GI/Abdominal Exam: Soft, Non-Tender, No Organomegaly, No Distention Extremities: Non-Tender, No Pedal Edema Skin: Warm, Dry, Intact - Patient Data Lab Results Last 24 hrs: Laboratory Results - last 24 hr 03/04/20 03/04/20 03/04/20 Range/Units 01:44 01:50 01:50 WBC 19.0 H (4.5-11.0) K/uL RBC 2.58 L (4.30-5.90) M/uL Hgb 7.8 L (12.0-15.0) g/dL Hct 25.6 L (40.0-54.0) % MCV 99 H (80-98) fL MCH 30 (27-31) pg MCHC 31 L (32-36) % Plt Count 374 (150-400) K/uL Neut % (Auto) 94 H (36-66) % Lymph % (Auto) 2 L (24-44) % [place] % (Auto) 4 (2-6) % Eos % (Auto) 0 L (2-4) % Baso % (Auto) 0 (0-1) % Puncture Site Lt radial ABG pH 7.338 L (7.350-7.450) ABG pCO2 40.5 (35.0-42.0) mmHg ABG pO2 69.3 L (75.0-100.0) mmHg ABG HCO3 21.1 L (22.0-26.0) mmol/L ABG Total CO2 20.5 L (23.0-27.0) mmol/L ABG O2 Saturation 92.4 L (95.0-98.0) % ABG O2 Content 9.8 L (15.0-23.0) %vol ABG Base Excess -3.8 mm/L ABG Hemoglobin 7.6 L (13.5-18.0) g/dL ABG Oxyhemoglobin 90.3 % ABG Carboxyhemoglobin 1.4 (0.0-1.6) % ABG Methemoglobin 0.9 % [place] Test Pass O2 Delivery Device Non rebr mask Oxygen Flow Rate 10.0 L Sodium (140-148) mmol/L Potassium (3.6-5.2) mmol/L Chloride (100-108) mmol/L Carbon Dioxide (21-32) mmol/L Anion Gap (5.0-14.0) mmol/L BUN (7-18) mg/dL Creatinine (0.8-1.3) mg/dL Est Cr Clr Drug Dosing Estimated GFR (MDRD) (>60) Glucose (74-106) mg/dL Lactic Acid (0.4-2.0) mmol/L Calcium (8.5-10.1) mg/dL Total Bilirubin (0.2-1.0) mg/dL AST (15-37) U/L ALT (12-78) U/L Alkaline Phosphatase (46-116) U/L Troponin I < 0.017 (0.000-0.056) ng/mL NT-Pro-B Natriuret Pep (5-450) pg/mL Total Protein (6.4-8.2) g/dL Albumin (3.4-5.0) g/dL Globulin (2.3-3.5) g/dL Albumin/Globulin Ratio (1.2-2.2) Urine Color (YELLOW) Urine Appearance (CLEAR) Urine pH (5.0-8.0) Ur Specific [place] (1.008-1.030) Urine Protein (NEGATIVE) mg/dL Urine Glucose (UA) (NEGATIVE) mg/dL Urine Ketones (NEGATIVE) mg/dL Urine Occult Blood (NEGATIVE) Urine Nitrite (NEGATIVE) Urine Bilirubin (NEGATIVE) Urine Urobilinogen (0.2-1.0) EU/dL Ur Leukocyte Esterase (NEGATIVE) Urine RBC (0-5) Urine WBC (0-5) Ur Epithelial Cells Amorphous Sediment Urine Bacteria Urine Mucus 03/04/20 03/04/20 03/04/20 Range/Units 01:50 01:50 01:52 WBC (4.5-11.0) K/uL RBC (4.30-5.90) M/uL Hgb (12.0-15.0) g/dL Hct (40.0-54.0) % MCV (80-98) fL MCH (27-31) pg MCHC (32-36) % Plt Count (150-400) K/uL Neut % (Auto) (36-66) % Lymph % (Auto) (24-44) % [place] % (Auto) (2-6) % Eos % (Auto) (2-4) % Baso % (Auto) (0-1) % Puncture Site ABG pH (7.350-7.450) ABG pCO2 (35.0-42.0) mmHg ABG pO2 (75.0-100.0) mmHg ABG HCO3 (22.0-26.0) mmol/L ABG Total CO2 (23.0-27.0) mmol/L ABG O2 Saturation (95.0-98.0) % ABG O2 Content (15.0-23.0) %vol ABG Base Excess mm/L ABG Hemoglobin (13.5-18.0) g/dL ABG Oxyhemoglobin % ABG Carboxyhemoglobin (0.0-1.6) % ABG Methemoglobin % [place] Test O2 Delivery Device Oxygen Flow Rate L Sodium 141 (140-148) mmol/L Potassium 5.5 H (3.6-5.2) mmol/L Chloride 110 H (100-108) mmol/L Carbon Dioxide 25 (21-32) mmol/L Anion Gap 11.5 (5.0-14.0) mmol/L BUN 51 H (7-18) mg/dL Creatinine 3.3 H (0.8-1.3) mg/dL Est Cr Clr Drug Dosing TNP Estimated GFR (MDRD) 18 L (>60) Glucose 169 H (74-106) mg/dL Lactic Acid 0.8 (0.4-2.0) mmol/L Calcium 7.8 L (8.5-10.1) mg/dL Total Bilirubin 0.2 (0.2-1.0) mg/dL AST 35 D (15-37) U/L ALT 35 D (12-78) U/L Alkaline Phosphatase 78 (46-116) U/L Troponin I (0.000-0.056) ng/mL NT-Pro-B Natriuret Pep 83694 H (5-450) pg/mL Total Protein 5.9 L (6.4-8.2) g/dL Albumin 1.8 L (3.4-5.0) g/dL Globulin 4.1 H (2.3-3.5) g/dL Albumin/Globulin Ratio 0.4 L (1.2-2.2) Urine Color (YELLOW) Urine Appearance (CLEAR) Urine pH (5.0-8.0) Ur Specific [place] (1.008-1.030) Urine Protein (NEGATIVE) mg/dL Urine Glucose (UA) (NEGATIVE) mg/dL Urine Ketones (NEGATIVE) mg/dL Urine Occult Blood (NEGATIVE) Urine Nitrite (NEGATIVE) Urine Bilirubin (NEGATIVE) Urine Urobilinogen (0.2-1.0) EU/dL Ur Leukocyte Esterase (NEGATIVE) Urine RBC (0-5) Urine WBC (0-5) Ur Epithelial Cells Amorphous Sediment Urine Bacteria Urine Mucus 03/04/20 Range/Units 02:21 WBC (4.5-11.0) K/uL RBC (4.30-5.90) M/uL Hgb (12.0-15.0) g/dL Hct (40.0-54.0) % MCV (80-98) fL MCH (27-31) pg MCHC (32-36) % Plt Count (150-400) K/uL Neut % (Auto) (36-66) % Lymph % (Auto) (24-44) % [place] % (Auto) (2-6) % Eos % (Auto) (2-4) % Baso % (Auto) (0-1) % Puncture Site ABG pH (7.350-7.450) ABG pCO2 (35.0-42.0) mmHg ABG pO2 (75.0-100.0) mmHg ABG HCO3 (22.0-26.0) mmol/L ABG Total CO2 (23.0-27.0) mmol/L ABG O2 Saturation (95.0-98.0) % ABG O2 Content (15.0-23.0) %vol ABG Base Excess mm/L ABG Hemoglobin (13.5-18.0) g/dL ABG Oxyhemoglobin % ABG Carboxyhemoglobin (0.0-1.6) % ABG Methemoglobin % [place] Test O2 Delivery Device Oxygen Flow Rate L Sodium (140-148) mmol/L Potassium (3.6-5.2) mmol/L Chloride (100-108) mmol/L Carbon Dioxide (21-32) mmol/L Anion Gap (5.0-14.0) mmol/L BUN (7-18) mg/dL Creatinine (0.8-1.3) mg/dL Est Cr Clr Drug Dosing Estimated GFR (MDRD) (>60) Glucose (74-106) mg/dL Lactic Acid (0.4-2.0) mmol/L Calcium (8.5-10.1) mg/dL Total Bilirubin (0.2-1.0) mg/dL AST (15-37) U/L ALT (12-78) U/L Alkaline Phosphatase (46-116) U/L Troponin I (0.000-0.056) ng/mL NT-Pro-B Natriuret Pep (5-450) pg/mL Total Protein (6.4-8.2) g/dL Albumin (3.4-5.0) g/dL Globulin (2.3-3.5) g/dL Albumin/Globulin Ratio (1.2-2.2) Urine Color Yellow (YELLOW) Urine Appearance Cloudy A (CLEAR) Urine pH 6.0 (5.0-8.0) Ur Specific [place] 1.025 (1.008-1.030) Urine Protein >=300 H (NEGATIVE) mg/dL Urine Glucose (UA) 100 H (NEGATIVE) mg/dL Urine Ketones Negative (NEGATIVE) mg/dL Urine Occult Blood Moderate H (NEGATIVE) Urine Nitrite Negative (NEGATIVE) Urine Bilirubin Negative (NEGATIVE) Urine Urobilinogen 0.2 (0.2-1.0) EU/dL Ur Leukocyte Esterase Negative (NEGATIVE) Urine RBC 20-30 H (0-5) Urine WBC 10-20 H (0-5) Ur Epithelial Cells Rare Amorphous Sediment Not seen Urine Bacteria Many Urine Mucus Not seen Result Diagrams: 03/04/20 01:50 03/04/20 01:50 Sepsis Event Note - Evaluation Sepsis Screening Result: No Definite Risk - Focused Exam Vital Signs: Vital Signs Temp Pulse Resp BP Pulse Ox 03/04/20 04:13 93 L 03/04/20 03:24 97.1 F 56 L 26 H 142/79 H 94 L 03/04/20 02:52 53 L 24 H 132/73 95 03/04/20 02:42 58 L 28 H 142/81 H 92 L 03/04/20 02:30 96.5 F L 57 L 16 137/70 87 L 03/04/20 02:27 59 L 24 H 153/72 H 91 L 03/04/20 02:21 57 L 19 145/70 H 89 L 03/04/20 02:16 59 L 21 H 146/73 H 88 L 03/04/20 02:12 58 L 28 H 140/76 86 L 03/04/20 02:07 57 L 27 H 138/68 86 L 03/04/20 01:59 96.5 F L 57 L 16 137/70 87 L Date Exam was Performed: 03/04/20 Time Exam was Performed: 06:21 *Q Meaningful Use (ADM) - VTE Risk Assess *Q Each Risk Factor Represents 1 Point: Obesity ( BMI > 25 kg/m2), Serious lung disease including pneumonia, Abnormal Pulmonary Function (COPD) Total Score 1 Point Risk Factors: 3 Each Risk Factor Represents 2 Points: None Total Score 2 Point Risk Factors: 0 Each Risk Factor Represents 3 Points: Age 75 Years or Greater Total Score 3 Point Risk Factors: 3 Each Risk Factor Represents 5 Points: None Total Score 5 Point Risk Factors: 0 Venous Thromboembolism Risk Factor Score *Q: 6 Problem List Initiated/Reviewed/Updated: Yes Orders Last 24hrs: Active Orders 24 hr Category Date Time Status Patient Status Manage Transfer [TRANSFER] Routine ADT 03/04/20 04:34 Active EKG Documentation Completion [RC] ASDIRECTED Care 03/04/20 01:45 Active Helm Catheter Insertion [Insert Urinary Catheter] [OM. Care 03/04/20 02:15 Ordered PC] Q24H Urinary Catheter Assessment [RC] ASDIRECTED Care 03/04/20 02:09 Active CULTURE BLOOD [BC] Urgent Lab 03/04/20 02:05 Received CULTURE BLOOD [BC] Urgent Lab 03/04/20 02:30 Received CULTURE URINE [RM] Stat Lab 03/04/20 03:11 Received Levofloxacin/Dextrose 5%-Water [Levaquin in D5W 750 MG/ Med 03/04/20 04:45 Ordered 150 ML] 750 mg Premix Bag 1 bag IV Q48H Piperacillin/Tazobactam [Zosyn] 2.25 gm Med 03/04/20 04:45 Ordered Sodium Chloride 0.9% [Normal Saline] 50 ml IV Q6H Vancomycin Med 03/04/20 05:00 Ordered 1 gm IV .PHARMACY TO DOSE Blood Culture x2 Reflex Set [OM.PC] Urgent Oth 03/04/20 01:59 Ordered Resuscitation Status Routine Resus Stat 03/04/20 04:38 Ordered EKG 12 Lead [EK] Routine Ther 03/04/20 01:45 Ordered Medication Orders Levofloxacin/Dextrose 750 mg/ (Premix) 150 mls @ 100 mls/hr IV Q48H MERVAT Piperacillin Sod/Tazobactam (Sod 2.25 gm/ Sodium Chloride) 50 mls @ 100 mls/hr IV Q6H MERVAT Vancomycin HCl (Vancomycin) 1 gm IV .PHARMACY TO DOSE MERVAT Assessment/Plan Comment:: ASSESSMENT AND PLAN BILATERAL PNEUMONIA-hospitalized here last week for left lower lung pneumonia. I am unable to gain significant information from the patient at this time as he is very sleepy and unable or unwilling to participate in providing a history. On evaluation in the emergency department white blood cell count is elevated and chest x-ray shows new right and left lung infiltrates that were not present previously. Course complicated by hypoxic respiratory failure. -Blood and sputum cultures pending -IV fluids for hydration -Given recent hospitalization will proceed with broad-spectrum IV antibiotics; vancomycin, Zosyn, levofloxacin, pending culture results HYPOXIC RESPIRATORY FAILURE-secondary to bilateral pneumonia and underlying COPD -Noninvasive positive pressure ventilation -Supplemental oxygen as needed -Echocardiogram tomorrow to assess left ventricular function COPD-exacerbation secondary to pneumonia CHRONIC KIDNEY DISEASE STAGE IV-renal function appears to be fairly stable from most recent discharge, no evidence of acute exacerbation -Closely monitor renal function and urine output -Remove Helm catheter as soon as possible when stable CHRONIC ANEMIA-hemoglobin 7.8 on admission -Closely monitor, consider transfusion for hemoglobin less than 7 or ongoing symptoms in light of pneumonia COPD and hypoxia MAINTENANCE ISSUES -DVT prophylaxis; -GI prophylaxis; -Helm catheter; -Nutrition; -Nicotine dependence; CODE STATUS- ADMISSION STATUS-patient will be admitted to inpatient status, expect at least a 2 night hospital stay for evaluation and management of problems as outlined above. At the time of this admission I do not reasonably expected evaluation and management of this problem will require more than a 96 hour hospital stay. DISPOSITION-anticipate discharge to home after the hospital stay. PRIMARY CARE PROVIDER- - Mortality Measure Prognosis:: Poor
[2020-03-04] MEDS ORDERED: Acetaminophen 325 MG Tab PO PRN (05:00)
[2020-03-04] MEDS ORDERED: Polyethylene Glycol 3350 Powder 17 GM Packet PO PRN (05:00)
[2020-03-04] MEDS ORDERED: Ondansetron 4 MG/2 ML SDV IV PRN (05:00)
[2020-03-04] MEDS ORDERED: Enoxaparin 30 MG/0.3 ML Syringe SUBCUT SCH (05:00)
[2020-03-04] MEDS ORDERED: Vancomycin 1 GM SDV IV SCH (05:00)
[2020-03-04] MEDS ORDERED: Sodium Chloride 0.9% 10 ML Syringe FLUSH PRN (05:00)
[2020-03-04] MEDS ORDERED: methylPREDNISolone Sodium Succinate 40 MG/1 ML SDV IVPUSH SCH (05:00)
[2020-03-04] MEDS ORDERED: Sodium Chloride 0.9% 50 ML ONE (05:01)
[2020-03-04] MEDS ORDERED: Lactated Ringers 1,000 ML IV SCH ×2 (06:15→12:15)
[2020-03-04] MEDS ORDERED: Glycopyrrolate 15.6 MCG Cap.W.Dev Kit of 6 IH SCH (07:00)
[2020-03-04] MEDS: Glycopyrrolate 15.6 MCG Cap.W.Dev Kit of 6 IH SCH ×2 (07:47→22:36)
[2020-03-04] MEDS ORDERED: Lactobacillus Rhamnosus GG (Probiotic) Cap PO SCH (09:00)
[2020-03-04] MEDS ORDERED: Ketotifen 0.025% Ophth Soln 5 ML Bottle EYEBOTH SCH (09:00)
[2020-03-04] MEDS: hydrALAZINE 10 MG Tab PO SCH ×2 (09:38→20:31)
[2020-03-04] MEDS: Tamsulosin 0.4 MG Cap.ER PO SCH (09:38)
[2020-03-04] MEDS: Lactobacillus Rhamnosus GG (Probiotic) Cap PO SCH ×2 (09:38→20:31)
[2020-03-04] MEDS: Fluticasone Propionate Nasal Spray 16 GM Bottle NAS SCH (09:47)
[2020-03-04] MEDS: amLODIPine 10 MG Tab PO SCH (09:47)
[2020-03-04] MEDS: Pantoprazole 40 MG Tab.CR PO SCH (09:47)
[2020-03-04] MEDS: Lisinopril 20 MG Tab PO SCH (09:48)
[2020-03-04] MEDS: Metoprolol Succinate 25 MG Tab.ER PO SCH (09:48)
[2020-03-04] MEDS: Finasteride 5 MG Tab PO SCH (09:48)
[2020-03-04] MEDS: Ketotifen 0.025% Ophth Soln 5 ML Bottle EYEBOTH SCH ×3 (09:48→22:36)
[2020-03-04] MEDS: methylPREDNISolone Sodium Succinate 40 MG/1 ML SDV IVPUSH SCH ×3 (12:03→23:54)
[2020-03-04] MEDS: Meropenem 500 MG in Sodium Chloride 0.9% 50 ML IV SCH ×2 (12:04→23:55)
[2020-03-04] MEDS ORDERED: Piperacillin/Tazobactam/Dext 2.25 GM in Premix Bag 1 BAG IV SCH (13:00)
[2020-03-04] MEDS ORDERED: Lactated Ringers 500 ML IV ONE (16:00)
[2020-03-04] MEDS: Lactated Ringers 1,000 ML IV SCH (18:19)
[2020-03-04] MEDS: rOPINIRole 1 MG Tab PO SCH (20:31)
[2020-03-04] MEDS: Oxybutynin 5 MG Tab PO SCH (20:31)
[2020-03-05] MEDS: Lactated Ringers 1,000 ML IV SCH ×2 (02:48→15:45)
[2020-03-05] MEDS: methylPREDNISolone Sodium Succinate 40 MG/1 ML SDV IVPUSH SCH ×4 (05:45→23:32)
[2020-03-05] MEDS: Enoxaparin 30 MG/0.3 ML Syringe SUBCUT SCH (05:46)
[2020-03-05] MEDS: Glycopyrrolate 15.6 MCG Cap.W.Dev Kit of 6 IH SCH ×2 (07:19→21:26)
[2020-03-05] MEDS: Metoprolol Succinate 25 MG Tab.ER PO SCH (09:28)
[2020-03-05] MEDS: hydrALAZINE 10 MG Tab PO SCH ×2 (09:29→21:29)
[2020-03-05] MEDS: Tamsulosin 0.4 MG Cap.ER PO SCH (09:29)
[2020-03-05] MEDS: amLODIPine 10 MG Tab PO SCH (09:29)
[2020-03-05] MEDS: Pantoprazole 40 MG Tab.CR PO SCH (09:29)
[2020-03-05] MEDS: Ketotifen 0.025% Ophth Soln 5 ML Bottle EYEBOTH SCH ×2 (09:30→21:28)
[2020-03-05] MEDS: Lactobacillus Rhamnosus GG (Probiotic) Cap PO SCH ×2 (09:30→21:29)
[2020-03-05] MEDS: Lisinopril 20 MG Tab PO SCH (09:30)
[2020-03-05] MEDS: Fluticasone Propionate Nasal Spray 16 GM Bottle NAS SCH (09:30)
[2020-03-05] MEDS: Finasteride 5 MG Tab PO SCH (09:31)
[2020-03-05] MEDS: Meropenem 500 MG in Sodium Chloride 0.9% 50 ML IV SCH ×2 (12:15→23:32)
--- NOTE | 2020-03-05 15:40 | PCM.PN ---
- General Info Date of Service: 03/05/20 Subjective Update: There were no acute events overnight. Patient did use the noninvasive ventilation for a while but is on nasal cannula this morning at breakfast time. He is more alert and interactive. Shortness of breath is better. He does have a cough that is loose. He is currently requiring 4 L of supplemental oxygen. No fever overnight. No abdominal pain. White blood cell count is slightly better. Kidney function stable. Cultures are still pending. - Review of Systems General: Denies: Fever - Patient Data Vitals - Most Recent: Last Vital Signs Temp 35.8 C L 03/05/20 10:13 Pulse 66 03/05/20 14:00 Resp 21 H 03/05/20 14:00 BP 145/82 H 03/05/20 14:00 Pulse Ox 90 L 03/05/20 14:00 Weight - Most Recent: 77.564 kg I&O - Last 24 Hours: Intake & Output 03/05/20 03/05/20 03/05/20 06:59 14:59 22:59 Intake Total 1404 888 Output Total 450 50 Balance 954 838 Lab Results Last 24 Hours: Laboratory Results - last 24 hr 03/05/20 03/05/20 03/05/20 Range/Units 04:45 04:45 05:39 WBC 18.1 H (4.5-11.0) K/uL RBC 2.12 L (4.30-5.90) M/uL Hgb 6.5 L* (12.0-15.0) g/dL Hct 21.4 L (40.0-54.0) % MCV 101 H (80-98) fL MCH 31 (27-31) pg MCHC 30 L (32-36) % Plt Count 311 (150-400) K/uL Neut % (Auto) 95 H (36-66) % Lymph % (Auto) 3 L (24-44) % [place] % (Auto) 3 (2-6) % Eos % (Auto) 0 L (2-4) % Baso % (Auto) 0 (0-1) % Sodium 143 (140-148) mmol/L Potassium 5.2 (3.6-5.2) mmol/L Chloride 112 H (100-108) mmol/L Carbon Dioxide 22 (21-32) mmol/L Anion Gap 14.2 H (5.0-14.0) mmol/L BUN 50 H (7-18) mg/dL Creatinine 3.1 H (0.8-1.3) mg/dL Est Cr Clr Drug Dosing 18.10 mL/min Estimated GFR (MDRD) 20 L (>60) Glucose 102 (74-106) mg/dL Calcium 7.5 L (8.5-10.1) mg/dL Magnesium 3.3 H (1.8-2.4) mg/dL Total Bilirubin 0.2 (0.2-1.0) mg/dL AST 36 (15-37) U/L ALT 29 (12-78) U/L Alkaline Phosphatase 61 (46-116) U/L Total Protein 4.8 L (6.4-8.2) g/dL Albumin 1.4 L (3.4-5.0) g/dL Globulin 3.4 (2.3-3.5) g/dL Albumin/Globulin Ratio 0.4 L (1.2-2.2) Blood Type A POSITIVE Gel Antibody Screen Negative Crossmatch See Detail Jules Results Last 24 Hours: Microbiology 03/04/20 03:11 Urine Culture - Preliminary Urine, Bladder NO GROWTH AFTER 1 DAY 03/04/20 02:30 Aerobic Blood Culture - Preliminary Blood - Venous - Lab Draw NO GROWTH AFTER 1 DAY Anaerobic Blood Culture - Preliminary NO GROWTH AFTER 1 DAY 03/04/20 02:05 Aerobic Blood Culture - Preliminary Blood - Venous NO GROWTH AFTER 1 DAY Anaerobic Blood Culture - Preliminary NO GROWTH AFTER 1 DAY 03/04/20 22:13 Gram Stain - Final Sputum - Expectorated Med Orders - Current: Current Medications Acetaminophen (Tylenol) 650 mg PO Q4H PRN PRN Reason: Pain (Mild 1-3)/fever Amlodipine Besylate (Norvasc) 10 mg PO DAILY [facility] Last Admin: 03/05/20 09:29 Dose: 10 mg Enoxaparin Sodium (Lovenox) 30 mg SUBCUT Q24H [facility] Last Admin: 03/05/20 05:46 Dose: 30 mg Finasteride (Proscar) 5 mg PO DAILY [facility] Last Admin: 03/05/20 09:31 Dose: 5 mg Fluticasone Propionate (Flonase) 0 gm DOUG DAILY [facility] Last Admin: 03/05/20 09:30 Dose: 2 spr Glycopyrrolate (Seebri Neohaler) 15.6 mcg IH BIDRT [facility] Last Admin: 03/05/20 07:19 Dose: 1 cap Hydralazine HCl (Apresoline) 10 mg PO BID [facility] Last Admin: 03/05/20 09:29 Dose: 10 mg Levofloxacin/Dextrose (Levaquin In D5w 500 Mg/100 Ml) 100 mls @ 100 mls/hr IV Q48H [facility] Meropenem 500 mg/ Sodium (Chloride) 50 mls @ 100 mls/hr IV Q12H [facility] Last Admin: 03/05/20 12:15 Dose: 100 mls/hr Lactated Ringer's (Ringers, Lactated) 1,000 mls @ 25 mls/hr IV ASDIRECTED [facility] Vancomycin HCl 1.25 gm/ Sodium (Chloride) 250 mls @ 166.667 mls/hr IV Q36H [facility] Ketotifen Fumarate (Ketotifen 0.025% Ophth Soln) 0 ml EYEBOTH BID [facility] Last Admin: 03/05/20 09:30 Dose: 1 drop Lactobacillus Rhamnosus (Culturelle) 1 cap PO BID [facility] Last Admin: 03/05/20 09:30 Dose: 1 cap Lisinopril (Prinivil) 20 mg PO DAILY [facility] Last Admin: 03/05/20 09:30 Dose: 20 mg Methylprednisolone Sodium Succinate (Solu-Medrol) 40 mg IVPUSH Q6H [facility] Last Admin: 03/05/20 11:56 Dose: 40 mg Metoprolol Succinate (Toprol Xl) 25 mg PO DAILY [facility] Last Admin: 03/05/20 09:28 Dose: 25 mg Ondansetron HCl (Zofran) 4 mg IV Q4H PRN PRN Reason: Nausea/Vomiting Oxybutynin Chloride (Oxybutynin) 5 mg PO BEDTIME [facility] Last Admin: 03/04/20 20:31 Dose: 5 mg Pantoprazole Sodium (Protonix) 40 mg PO ACBREAKFAST [facility] Last Admin: 03/05/20 09:29 Dose: 40 mg Polyethylene Glycol (Miralax) 17 gm PO DAILY PRN PRN Reason: Constipation Ropinirole HCl (Requip) 1 mg PO BEDTIME [facility] Last Admin: 03/04/20 20:31 Dose: 1 mg Sodium Chloride (Saline Flush) 10 ml FLUSH ASDIRECTED PRN PRN Reason: Keep Vein Open Tamsulosin HCl (Flomax) 0.4 mg PO DAILY [facility] Last Admin: 03/05/20 09:29 Dose: 0.4 mg Discontinued Medications Enoxaparin Sodium (Lovenox) 30 mg SUBCUT DAILY [facility] Last Admin: 03/04/20 06:05 Dose: 30 mg Furosemide (Lasix) 40 mg IVPUSH ONETIME ONE Stop: 03/04/20 01:41 Last Admin: 03/04/20 02:17 Dose: Not Given Furosemide (Lasix) 60 mg IVPUSH ONETIME ONE Stop: 03/04/20 01:47 Last Admin: 03/04/20 02:16 Dose: 60 mg Levofloxacin/Dextrose 750 mg/ (Premix) 150 mls @ 100 mls/hr IV ONETIME ONE Stop: 03/04/20 06:14 Last Admin: 03/04/20 06:01 Dose: 100 mls/hr Piperacillin Sod/Tazobactam (Sod 2.25 gm/ Sodium Chloride) 50 mls @ 100 mls/hr IV Q8H [facility] Last Admin: 03/04/20 05:14 Dose: 100 mls/hr Sodium Chloride (Normal Saline) Confirm Administered Dose 50 mls @ as directed .ROUTE .STK-MED ONE Stop: 03/04/20 05:02 Last Admin: 03/04/20 05:16 Dose: 20 mls/hr Lactated Ringer's (Ringers, Lactated) 1,000 mls @ 250 mls/hr IV ASDIRECTED [facility] Stop: 03/04/20 12:16 Last Admin: 03/04/20 12:00 Dose: 250 mls/hr Lactated Ringer's (Ringers, Lactated) 1,000 mls @ 125 mls/hr IV ASDIRECTED [facility] Piperacillin/Tazobactam/ (Dextrose 2.25 gm/ Premix) 50 mls @ 100 mls/hr IV Q8H [facility] Vancomycin HCl 1.5 gm/ Sodium (Chloride) 250 mls @ 166.667 mls/hr IV ONETIME ONE Stop: 03/04/20 09:59 Last Admin: 03/04/20 08:33 Dose: 166.667 mls/hr Vancomycin HCl 1.25 gm/ Sodium (Chloride) 250 mls @ 166.667 mls/hr IV Q48H [facility] Lactated Ringer's (Ringers, Lactated) 500 mls @ 250 mls/hr IV ONETIME ONE Stop: 03/04/20 17:59 Last Admin: 03/04/20 16:37 Dose: 250 mls/hr Lactated Ringer's (Ringers, Lactated) 1,000 mls @ 125 mls/hr IV ASDIRECTED [facility] Last Admin: 03/05/20 02:48 Dose: 125 mls/hr Lactobacillus Rhamnosus (Culturelle) 1 cap PO BID [facility] Methylprednisolone Sodium Succinate (Solu-Medrol) 125 mg IVPUSH ONETIME ONE Stop: 03/04/20 02:19 Last Admin: 03/04/20 03:18 Dose: 125 mg Methylprednisolone Sodium Succinate (Solu-Medrol) 40 mg IVPUSH Q6H [facility] Last Admin: 03/04/20 06:00 Dose: 40 mg Vancomycin HCl (Vancomycin) 1 gm IV .PHARMACY TO DOSE [facility] Stop: 03/04/20 05:01 - Exam Quality Assessment: Supplemental Oxygen General: Alert, Oriented, Cooperative, No Acute Distress Neck: Supple Lungs: Normal Respiratory Effort, Crackles (Both bases, left greater than right) Cardiovascular: Regular Rate, Regular Rhythm GI/Abdominal Exam: Soft, No Distention Extremities: No Pedal Edema. No: Increased Warmth Skin: Warm, Dry Psy/Mental Status: Alert, Normal Affect Sepsis Event Note - Evaluation Sepsis Screening Result: No Definite Risk - Focused Exam Vital Signs: Vital Signs Temp Temp Pulse Pulse Resp BP BP 03/05/20 14:00 66 21 H 145/82 H 03/05/20 12:00 69 15 153/81 H 03/05/20 10:57 74 21 H 166/88 H 03/05/20 10:13 35.8 C L 69 18 170/83 H 03/05/20 10:00 35.9 C L 71 18 160/84 H 03/05/20 09:30 35.8 C L 67 15 148/82 H 150/76 H 03/05/20 09:29 148/82 H 03/05/20 09:28 69 148/82 H 03/05/20 09:00 35.8 C L 73 20 159/79 H 03/05/20 08:30 35.6 C L 64 18 154/79 H 03/05/20 08:15 35.4 C L 63 18 148/76 H 03/05/20 08:00 36.0 C L 64 20 144/83 H 03/05/20 07:45 36.0 C L 64 20 148/78 H 03/05/20 07:30 36.3 C 67 20 148/76 H 03/05/20 06:00 16 137/70 03/05/20 04:00 37.6 C 18 138/67 Pulse Ox 03/05/20 14:00 90 L 03/05/20 12:00 91 L 03/05/20 10:57 87 L 03/05/20 10:13 92 L 03/05/20 10:00 03/05/20 09:30 03/05/20 09:29 03/05/20 09:28 03/05/20 09:00 90 L 03/05/20 08:30 93 L 03/05/20 08:15 93 L 03/05/20 08:00 93 L 03/05/20 07:45 03/05/20 07:30 03/05/20 06:00 93 L 03/05/20 04:00 94 L Date Exam was Performed: 03/05/20 Time Exam was Performed: 15:35 - Problem List Review Problem List Initiated/Reviewed/Updated: Yes - My Orders Last 24 Hours: My Active Orders 03/05/20 10:30 Lactated Ringers [Ringers, Lactated] 1,000 ml IV ASDIRECTED 03/06/20 05:00 BASIC METABOLIC PANEL,BMP [CHEM] Timed CBC W/O DIFF,HEMOGRAM [HEME] Timed (1) - Plan Plan:: ASSESSMENT AND PLAN BILATERAL PNEUMONIA-he did use noninvasive ventilation overnight but is off as of this morning. Still needing 4 L of supplemental oxygen to maintain saturations around 90%. More alert and interactive. Shortness of breath is better. No fevers. White blood cell count slightly better. Respiratory culture did show some gram-positive cocci and few yeast. -Follow-up cultures -Gentle IV fluids for hydration -Continue broad-spectrum antibiotics HYPOXIC RESPIRATORY FAILURE-secondary to bilateral pneumonia and underlying COPD. He has normal left ventricular function on the echocardiogram but does have mild pulmonary hypertension and moderate mitral regurgitation. -Noninvasive positive pressure ventilation as needed -Supplemental oxygen as needed COPD-exacerbation secondary to pneumonia CHRONIC KIDNEY DISEASE STAGE IV-renal function appears to be fairly stable from most recent discharge, no evidence of acute exacerbation -Closely monitor renal function and urine output -Remove Helm catheter as soon as possible when stable CHRONIC ANEMIA-hemoglobin 7.8 on admission but did drop overnight, probably partly due to dilution. -Transfuse 1 unit of packed red blood cells this morning -Hemoglobin in the morning MAINTENANCE ISSUES -DVT prophylaxis; enoxaparin -GI prophylaxis; not indicated -Helm catheter; placed in the emergency room for strict intake and output monitoring anticipate removal tomorrow -Nutrition; low-sodium DISPOSITION-anticipate discharge to shelter after the hospital stay. Dirk Ozuna MD
[2020-03-05] MEDS: Albuterol/Ipratropium 3.0-0.5 MG/3 ML Neb Soln NEB SCH ×2 (19:45→21:29)
[2020-03-05] MEDS: rOPINIRole 1 MG Tab PO SCH (21:31)
[2020-03-05] MEDS: Oxybutynin 5 MG Tab PO SCH (21:32)
[2020-03-06] MEDS: methylPREDNISolone Sodium Succinate 40 MG/1 ML SDV IVPUSH SCH (05:01)
[2020-03-06] MEDS: Levofloxacin/Dextrose 5%-Water 100 ML IV SCH (05:01)
[2020-03-06] MEDS: Enoxaparin 30 MG/0.3 ML Syringe SUBCUT SCH (05:30)
[2020-03-06] MEDS: Albuterol/Ipratropium 3.0-0.5 MG/3 ML Neb Soln NEB SCH ×4 (07:09→20:30)
[2020-03-06] MEDS: Glycopyrrolate 15.6 MCG Cap.W.Dev Kit of 6 IH SCH ×2 (07:10→20:39)
[2020-03-06] MEDS: Pantoprazole 40 MG Tab.CR PO SCH (07:58)
[2020-03-06] MEDS: amLODIPine 10 MG Tab PO SCH (07:59)
[2020-03-06] MEDS: Tamsulosin 0.4 MG Cap.ER PO SCH (07:59)
[2020-03-06] MEDS: hydrALAZINE 10 MG Tab PO SCH ×2 (07:59→20:14)
[2020-03-06] MEDS: Finasteride 5 MG Tab PO SCH (08:00)
[2020-03-06] MEDS: Metoprolol Succinate 25 MG Tab.ER PO SCH (08:00)
[2020-03-06] MEDS: Lisinopril 20 MG Tab PO SCH (08:00)
[2020-03-06] MEDS: Fluticasone Propionate Nasal Spray 16 GM Bottle NAS SCH (08:01)
[2020-03-06] MEDS: Lactobacillus Rhamnosus GG (Probiotic) Cap PO SCH ×2 (08:01→20:13)
[2020-03-06] MEDS: Ketotifen 0.025% Ophth Soln 5 ML Bottle EYEBOTH SCH ×2 (08:03→20:19)
--- NOTE | 2020-03-06 09:09 | PCM.PN ---
- General Info Date of Service: 03/06/20 Subjective Update: There were no acute events overnight. The patient reports that he feels well. He does not feel short of breath. He is not coughing. No abdominal pain or nausea. He does continue to require 4-1/2 L of supplemental oxygen. He has extremely weak. Appetite has not been great but he has been doing okay with his dietary supplements. White blood cell count is stable. Kidney function is stable. Respiratory culture is growing moderate yeast and a gram-positive cocci. Functional Status: Reports: Pain Controlled, Tolerating Diet - Review of Systems General: Reports: Weakness. Denies: Fever Pulmonary: Reports: Shortness of Breath - Patient Data Vitals - Most Recent: Last Vital Signs Temp 35.3 C L 03/06/20 07:54 Pulse 66 03/06/20 08:00 Resp 19 03/06/20 07:54 BP 135/76 03/06/20 08:00 Pulse Ox 88 L 03/06/20 07:54 Weight - Most Recent: 77.564 kg I&O - Last 24 Hours: Intake & Output 03/05/20 03/06/20 03/06/20 22:59 06:59 14:59 Intake Total 550 576 300 Output Total 375 275 Balance 175 301 300 Lab Results Last 24 Hours: Laboratory Results - last 24 hr 03/05/20 03/06/20 03/06/20 Range/Units 05:39 06:01 06:01 WBC 18.3 H (4.5-11.0) K/uL RBC 2.98 L (4.30-5.90) M/uL Hgb 9.0 L D (12.0-15.0) g/dL Hct 28.9 L (40.0-54.0) % MCV 97 (80-98) fL MCH 30 (27-31) pg MCHC 31 L (32-36) % Plt Count 340 (150-400) K/uL Sodium 144 (140-148) mmol/L Potassium 4.4 (3.6-5.2) mmol/L Chloride 111 H (100-108) mmol/L Carbon Dioxide 21 (21-32) mmol/L Anion Gap 16.4 H (5.0-14.0) mmol/L BUN 53 H (7-18) mg/dL Creatinine 3.3 H (0.8-1.3) mg/dL Est Cr Clr Drug Dosing 16.92 mL/min Estimated GFR (MDRD) 18 L (>60) Glucose 156 H (74-106) mg/dL Calcium 7.6 L (8.5-10.1) mg/dL Crossmatch See Detail Jules Results Last 24 Hours: Microbiology 03/04/20 22:13 Gram Stain - Final Sputum - Expectorated Respiratory Culture - Preliminary 03/04/20 03:11 Urine Culture - Final Urine, Bladder NO GROWTH AFTER 2 DAYS 03/04/20 02:05 Aerobic Blood Culture - Preliminary Blood - Venous NO GROWTH AFTER 2 DAYS Anaerobic Blood Culture - Preliminary NO GROWTH AFTER 2 DAYS 03/04/20 02:30 Aerobic Blood Culture - Preliminary Blood - Venous - Lab Draw NO GROWTH AFTER 2 DAYS Anaerobic Blood Culture - Preliminary NO GROWTH AFTER 2 DAYS Med Orders - Current: Current Medications Acetaminophen (Tylenol) 650 mg PO Q4H PRN PRN Reason: Pain (Mild 1-3)/fever Albuterol/Ipratropium (Duoneb 3.0-0.5 Mg/3 Ml) 3 ml NEB QIDRT [facility] Last Admin: 03/06/20 07:09 Dose: 3 ml Amlodipine Besylate (Norvasc) 10 mg PO DAILY [facility] Last Admin: 03/06/20 07:59 Dose: 10 mg Enoxaparin Sodium (Lovenox) 30 mg SUBCUT Q24H [facility] Last Admin: 03/06/20 05:30 Dose: 30 mg Finasteride (Proscar) 5 mg PO DAILY [facility] Last Admin: 03/06/20 08:00 Dose: 5 mg Fluticasone Propionate (Flonase) 0 gm DOUG DAILY [facility] Last Admin: 03/06/20 08:01 Dose: 2 spr Glycopyrrolate (Seebri Neohaler) 15.6 mcg IH BIDRT [facility] Last Admin: 03/06/20 07:10 Dose: 1 cap Hydralazine HCl (Apresoline) 10 mg PO BID [facility] Last Admin: 03/06/20 07:59 Dose: 10 mg Levofloxacin/Dextrose (Levaquin In D5w 500 Mg/100 Ml) 100 mls @ 100 mls/hr IV Q48H [facility] Last Admin: 03/06/20 05:01 Dose: 100 mls/hr Meropenem 500 mg/ Sodium (Chloride) 50 mls @ 100 mls/hr IV Q12H [facility] Last Admin: 03/05/20 23:32 Dose: 100 mls/hr Lactated Ringer's (Ringers, Lactated) 1,000 mls @ 25 mls/hr IV ASDIRECTED [facility] Last Admin: 03/05/20 15:45 Dose: 25 mls/hr Vancomycin HCl 1.25 gm/ Sodium (Chloride) 250 mls @ 166.667 mls/hr IV Q36H [facility] Last Admin: 03/05/20 19:00 Dose: 166.667 mls/hr Fluconazole/Sodium Chloride (100 mg/ Premix) 50 mls @ 100 mls/hr IV Q24H [facility] Ketotifen Fumarate (Ketotifen 0.025% Ophth Soln) 0 ml EYEBOTH BID [facility] Last Admin: 03/06/20 08:03 Dose: 2 drop Lactobacillus Rhamnosus (Culturelle) 1 cap PO BID [facility] Last Admin: 03/06/20 08:01 Dose: 1 cap Lisinopril (Prinivil) 20 mg PO DAILY [facility] Last Admin: 03/06/20 08:00 Dose: 20 mg Metoprolol Succinate (Toprol Xl) 25 mg PO DAILY [facility] Last Admin: 03/06/20 08:00 Dose: 25 mg Ondansetron HCl (Zofran) 4 mg IV Q4H PRN PRN Reason: Nausea/Vomiting Oxybutynin Chloride (Oxybutynin) 5 mg PO BEDTIME [facility] Last Admin: 03/05/20 21:32 Dose: 5 mg Pantoprazole Sodium (Protonix) 40 mg PO ACBREAKFAST [facility] Last Admin: 03/06/20 07:58 Dose: 40 mg Polyethylene Glycol (Miralax) 17 gm PO DAILY PRN PRN Reason: Constipation Ropinirole HCl (Requip) 1 mg PO BEDTIME [facility] Last Admin: 03/05/20 21:31 Dose: 1 mg Sodium Chloride (Saline Flush) 10 ml FLUSH ASDIRECTED PRN PRN Reason: Keep Vein Open Tamsulosin HCl (Flomax) 0.4 mg PO DAILY [facility] Last Admin: 03/06/20 07:59 Dose: 0.4 mg Discontinued Medications Enoxaparin Sodium (Lovenox) 30 mg SUBCUT DAILY [facility] Last Admin: 05/31/20 06:05 Dose: 30 mg Furosemide (Lasix) 40 mg IVPUSH ONETIME ONE Stop: 03/04/20 01:41 Last Admin: 03/04/20 02:17 Dose: Not Given Furosemide (Lasix) 60 mg IVPUSH ONETIME ONE Stop: 03/04/20 01:47 Last Admin: 03/04/20 02:16 Dose: 60 mg Levofloxacin/Dextrose 750 mg/ (Premix) 150 mls @ 100 mls/hr IV ONETIME ONE Stop: 03/04/20 06:14 Last Admin: 03/04/20 06:01 Dose: 100 mls/hr Piperacillin Sod/Tazobactam (Sod 2.25 gm/ Sodium Chloride) 50 mls @ 100 mls/hr IV Q8H [facility] Last Admin: 03/04/20 05:14 Dose: 100 mls/hr Sodium Chloride (Normal Saline) Confirm Administered Dose 50 mls @ as directed .ROUTE .STK-MED ONE Stop: 03/04/20 05:02 Last Admin: 03/04/20 05:16 Dose: 20 mls/hr Lactated Ringer's (Ringers, Lactated) 1,000 mls @ 250 mls/hr IV ASDIRECTED [facility] Stop: 03/04/20 12:16 Last Admin: 03/04/20 12:00 Dose: 250 mls/hr Lactated Ringer's (Ringers, Lactated) 1,000 mls @ 125 mls/hr IV ASDIRECTED [facility] Piperacillin/Tazobactam/ (Dextrose 2.25 gm/ Premix) 50 mls @ 100 mls/hr IV Q8H [facility] Vancomycin HCl 1.5 gm/ Sodium (Chloride) 250 mls @ 166.667 mls/hr IV ONETIME ONE Stop: 03/04/20 09:59 Last Admin: 03/04/20 08:33 Dose: 166.667 mls/hr Vancomycin HCl 1.25 gm/ Sodium (Chloride) 250 mls @ 166.667 mls/hr IV Q48H [facility] Lactated Ringer's (Ringers, Lactated) 500 mls @ 250 mls/hr IV ONETIME ONE Stop: 03/04/20 17:59 Last Admin: 03/04/20 16:37 Dose: 250 mls/hr Lactated Ringer's (Ringers, Lactated) 1,000 mls @ 125 mls/hr IV ASDIRECTED [facility] Last Admin: 03/05/20 02:48 Dose: 125 mls/hr Lactobacillus Rhamnosus (Culturelle) 1 cap PO BID [facility] Methylprednisolone Sodium Succinate (Solu-Medrol) 125 mg IVPUSH ONETIME ONE Stop: 03/04/20 02:19 Last Admin: 03/04/20 03:18 Dose: 125 mg Methylprednisolone Sodium Succinate (Solu-Medrol) 40 mg IVPUSH Q6H [facility] Last Admin: 03/04/20 06:00 Dose: 40 mg Methylprednisolone Sodium Succinate (Solu-Medrol) 40 mg IVPUSH Q6H [facility] Last Admin: 03/06/20 05:01 Dose: 40 mg Vancomycin HCl (Vancomycin) 1 gm IV .PHARMACY TO DOSE [facility] Stop: 03/04/20 05:01 - Exam Quality Assessment: Supplemental Oxygen General: Alert, Oriented, Cooperative, No Acute Distress Lungs: Normal Respiratory Effort, Crackles (left lung base ) Cardiovascular: Regular Rate, Regular Rhythm GI/Abdominal Exam: Normal Bowel Sounds, Soft, No Distention Extremities: No Pedal Edema. No: Increased Warmth Skin: Warm, Dry Psy/Mental Status: Alert, Normal Affect Sepsis Event Note - Evaluation Sepsis Screening Result: No Definite Risk - Focused Exam Vital Signs: Vital Signs Temp Pulse Pulse Resp BP BP Pulse Ox 03/06/20 08:00 66 135/76 03/06/20 07:59 135/76 03/06/20 07:54 35.3 C L 68 19 135/76 88 L 03/06/20 07:32 92 L 03/06/20 07:10 57 L 03/06/20 06:00 62 19 151/87 H 91 L 03/06/20 04:00 59 L 18 151/79 H 89 L 03/06/20 02:00 58 L 15 149/75 H 96 03/06/20 00:00 58 L 17 144/77 H 95 03/05/20 22:00 70 10 L 145/72 H 92 L 03/05/20 21:29 147/85 H Date Exam was Performed: 03/06/20 Time Exam was Performed: 10:54 - Problem List Review Problem List Initiated/Reviewed/Updated: Yes - My Orders Last 24 Hours: My Active Orders 03/05/20 10:30 Lactated Ringers [Ringers, Lactated] 1,000 ml IV ASDIRECTED 03/05/20 19:34 RT Aerosol Therapy [RC] ASDIRECTED Albuterol/Ipratropium [DuoNeb 3.0-0.5 MG/3 ML] 3 ml NEB QIDRT 03/06/20 09:05 Bumetanide [Bumex] 2 mg IVPUSH ONETIME ONE 03/06/20 09:06 PT Evaluation and Treatment [CONS] Routine 03/06/20 09:07 Dietary Supplements [RC] TIDMEALS Consult to [employer] [CONS] Routine 03/06/20 10:00 Fluconazole/Normal Saline [Diflucan in NS 200 MG/100 ML] 100 mg Premix Bag 1 bag IV Q24H 03/07/20 05:00 BASIC METABOLIC PANEL,BMP [CHEM] Timed CBC W/O DIFF,HEMOGRAM [HEME] Timed (1) VANCOMYCIN RANDOM [CHEM] Routine - Plan Plan:: ASSESSMENT AND PLAN BILATERAL PNEUMONIA-he did use noninvasive ventilation overnight again. He is off noninvasive ventilation this morning but oxygenation is not great. Still needing 4+ L of supplemental oxygen to maintain saturations around 90%. Respiratory culture did show some gram-positive cocci and moderate yeast. -Follow-up cultures -IV fluids at to keep open -Dose of bumetanide this morning -Start fluconazole -Continue broad-spectrum antibiotics HYPOXIC RESPIRATORY FAILURE-secondary to bilateral pneumonia and underlying COPD. He has normal left ventricular function on the echocardiogram but does have mild pulmonary hypertension and moderate mitral regurgitation. -Noninvasive positive pressure ventilation as needed -Bumetanide as above -Supplemental oxygen as needed COPD-exacerbation secondary to pneumonia. No wheezing. -Discontinue steroids CHRONIC KIDNEY DISEASE STAGE IV-kidney function stable. -Closely monitor renal function and urine output -Remove Helm catheter this afternoon CHRONIC ANEMIA-hemoglobin improved with transfusion. -Hemoglobin in the morning MAINTENANCE ISSUES -DVT prophylaxis; enoxaparin -GI prophylaxis; not indicated -Helm catheter; placed in the emergency room for strict intake and output monitoring anticipate removal this afternoon -Nutrition; low-sodium DISPOSITION-anticipate discharge to shelter after the hospital stay. Dirk Ozuna MD
[2020-03-06] MEDS ORDERED: Bumetanide 1 MG/4 ML MDV IVPUSH ONE (10:00)
[2020-03-06] MEDS: Fluconazole/Normal Saline 100 MG in Premix Bag 1 BAG IV SCH (10:03)
[2020-03-06] MEDS: Meropenem 500 MG in Sodium Chloride 0.9% 50 ML IV SCH (12:21)
[2020-03-06] MEDS: Lactated Ringers 1,000 ML IV SCH (14:53)
[2020-03-06] MEDS ORDERED: Bumetanide 2.5 MG/10 ML MDV IVPUSH ONE (16:00)
--- NOTE | 2020-03-06 16:11 | CRLCR ---
INDICATION: Hypoxia, followup pneumonia TECHNIQUE: Chest radiograph 1 view COMPARISON: 03/04/2020 FINDINGS: Moderate degradation of image quality noted due to body habitus. Mediastinum: The mediastinum is normal in appearance. The heart silhouette is normal in size and morphology. Lung: Diffuse airspace and ground-glass infiltrates in the left lung are unchanged. Focal consolidation in the right midlung zone has decreased with only minimal ground-glass residual. No sign of pleural effusion seen. No pneumothorax is identified. Bone and Soft tissue: Unremarkable for age. IMPRESSIONS: 1. Diffuse airspace and ground-glass infiltrates in the left lung are unchanged. 2. Focal consolidation in the right midlung zone has decreased with only minimal ground-glass residual. Dictated by Melvin Martinez MD @ 03/06/2020 4:09:10 PM Dictated by: Melvin Martinez MD @ 03/06/2020 16:09:16 (Electronically Signed)
--- NOTE | 2020-03-06 20:15 | PCM.SN.2 ---
- Free Text/Narrative Note: Skip has had a decline throughout the course of the day. He has had increasing respiratory difficulties. Supplemental oxygen via nasal cannula has not been adequate to maintain saturations. His oxygenation does improve with the use of noninvasive ventilation but he is only able to tolerate this for short periods of time. He often pulls the mask off shortly after it is placed. He has not been able to tolerate even a facemask for any length of time. I did discuss with him that this oxygen and especially the masks and most importantly the noninvasive ventilation are essential to helping him make it through this pneumonia. I expressed to him my concern that without the noninvasive ventilation that his chances of dying from this pneumonia are significantly increased. He said that he understands but he does not care if he dies because the mask is very uncomfortable. His daughter Nayana is at the bedside and he has been more compliant since she has been here but still does not leave the mask on for any period of time. Oxygen saturations with the mask around 90 but without her in the 60s and 70s. He is DO NOT RESUSCITATE and DO NOT INTUBATE. He is on very broad-spectrum antibiotics as well as an antifungal. I am concerned that the pneumonia may be overwhelming his body. We will continue to use the mask as much as he can tolerate but he does understand that is a possibility unless he is able to wear the mask. Even with the noninvasive ventilation he may succumb to this pneumonia. Family is aware of the concerning nature of his current situation. Dirk Ozuna MD
[2020-03-06] MEDS: Oxybutynin 5 MG Tab PO SCH (20:17)
[2020-03-06] MEDS: rOPINIRole 1 MG Tab PO SCH (20:18)
[2020-03-06] MEDS ORDERED: LORazepam 2 MG/ML SDV IVPUSH PRN (21:51)
[2020-03-06] MEDS: Morphine 2 MG/ML Syringe IVPUSH PRN (22:00)
[2020-03-07] MEDS: Meropenem 500 MG in Sodium Chloride 0.9% 50 ML IV SCH ×2 (00:02→11:54)
[2020-03-07] MEDS: Morphine 2 MG/ML Syringe IVPUSH PRN (00:05)
[2020-03-07] MEDS ORDERED: Haloperidol Lactate 5 MG/ML SDV IVPUSH ONE (00:15)
[2020-03-07] MEDS: Morphine 4 MG/ML Syringe IVPUSH PRN ×5 (00:30→22:57)
[2020-03-07] MEDS: Enoxaparin 30 MG/0.3 ML Syringe SUBCUT SCH (06:03)
[2020-03-07] MEDS: Glycopyrrolate 15.6 MCG Cap.W.Dev Kit of 6 IH SCH ×2 (07:10→20:53)
[2020-03-07] MEDS: Albuterol/Ipratropium 3.0-0.5 MG/3 ML Neb Soln NEB SCH ×4 (07:10→20:53)
[2020-03-07] MEDS: Lactobacillus Rhamnosus GG (Probiotic) Cap PO SCH ×2 (09:17→20:30)
[2020-03-07] MEDS: Pantoprazole 40 MG Tab.CR PO SCH (09:17)
[2020-03-07] MEDS: hydrALAZINE 10 MG Tab PO SCH ×2 (09:17→20:34)
[2020-03-07] MEDS: Finasteride 5 MG Tab PO SCH (09:18)
[2020-03-07] MEDS: amLODIPine 10 MG Tab PO SCH (09:18)
[2020-03-07] MEDS: Ketotifen 0.025% Ophth Soln 5 ML Bottle EYEBOTH SCH ×3 (09:18→20:39)
[2020-03-07] MEDS: Metoprolol Succinate 25 MG Tab.ER PO SCH (09:18)
[2020-03-07] MEDS: Fluticasone Propionate Nasal Spray 16 GM Bottle NAS SCH (09:18)
[2020-03-07] MEDS: Lisinopril 20 MG Tab PO SCH (09:18)
[2020-03-07] MEDS: Tamsulosin 0.4 MG Cap.ER PO SCH (09:18)
--- NOTE | 2020-03-07 09:48 | PCM.PN ---
- General Info Date of Service: 03/07/20 Subjective Update: The patient is obtunded this morning and unable to provide any useful history. Overnight he had a fair amount of agitation and for a good chunk of the night did not have his BiPAP mask or oxygen on. He required several doses of morphine , lorazepam and a dose of Haldol to keep him calm. Heart rate has been in the 60s and 70s. Oxygenation this morning now that he is relaxed is around 90 with the noninvasive ventilation. Laboratory studies are stable. Urine output is marginal. No fevers. - Review of Systems General: Denies: Fever - Patient Data Vitals - Most Recent: Last Vital Signs Temp 36.1 C 03/07/20 08:00 Pulse 61 03/07/20 08:00 Resp 16 03/07/20 08:00 BP 132/71 03/07/20 09:17 Pulse Ox 84 L 03/07/20 08:00 Weight - Most Recent: 77.564 kg I&O - Last 24 Hours: Intake & Output 03/06/20 03/07/20 03/07/20 22:59 06:59 14:59 Intake Total 234 352 Output Total 350 450 Balance -116 -98 Lab Results Last 24 Hours: Laboratory Results - last 24 hr 03/07/20 03/07/20 Range/Units 05:57 05:57 WBC 18.8 H (4.5-11.0) K/uL RBC 3.01 L (4.30-5.90) M/uL Hgb 9.3 L (12.0-15.0) g/dL Hct 29.5 L (40.0-54.0) % MCV 98 (80-98) fL MCH 31 (27-31) pg MCHC 32 (32-36) % Plt Count 312 (150-400) K/uL Sodium 146 (140-148) mmol/L Potassium 4.5 (3.6-5.2) mmol/L Chloride 113 H (100-108) mmol/L Carbon Dioxide 24 (21-32) mmol/L Anion Gap 13.5 (5.0-14.0) mmol/L BUN 58 H (7-18) mg/dL Creatinine 3.4 H (0.8-1.3) mg/dL Est Cr Clr Drug Dosing 16.42 mL/min Estimated GFR (MDRD) 18 L (>60) Glucose 115 H (74-106) mg/dL Calcium 7.6 L (8.5-10.1) mg/dL Random Vancomycin 20.8 (0.0-50.0) ug/mL Jules Results Last 24 Hours: Microbiology 03/04/20 22:13 Gram Stain - Final Sputum - Expectorated Respiratory Culture - Final Enterococcus Faecalis YEAST 03/04/20 02:05 Aerobic Blood Culture - Preliminary Blood - Venous NO GROWTH AFTER 3 DAYS Anaerobic Blood Culture - Preliminary NO GROWTH AFTER 3 DAYS 03/04/20 02:30 Aerobic Blood Culture - Preliminary Blood - Venous - Lab Draw NO GROWTH AFTER 3 DAYS Anaerobic Blood Culture - Preliminary NO GROWTH AFTER 3 DAYS 03/04/20 03:11 Urine Culture - Final Urine, Bladder NO GROWTH AFTER 2 DAYS Med Orders - Current: Current Medications Acetaminophen (Tylenol) 650 mg PO Q4H PRN PRN Reason: Pain (Mild 1-3)/fever Last Admin: 03/06/20 20:30 Dose: 650 mg Albuterol/Ipratropium (Duoneb 3.0-0.5 Mg/3 Ml) 3 ml NEB QIDRT [facility] Last Admin: 03/07/20 07:10 Dose: 3 ml Amlodipine Besylate (Norvasc) 10 mg PO DAILY [facility] Last Admin: 03/07/20 09:18 Dose: Not Given Enoxaparin Sodium (Lovenox) 30 mg SUBCUT Q24H [facility] Last Admin: 03/07/20 06:03 Dose: 30 mg Finasteride (Proscar) 5 mg PO DAILY [facility] Last Admin: 03/07/20 09:18 Dose: Not Given Fluticasone Propionate (Flonase) 0 gm DOUG DAILY [facility] Last Admin: 03/07/20 09:18 Dose: Not Given Glycopyrrolate (Seebri Neohaler) 15.6 mcg IH BIDRT [facility] Last Admin: 03/07/20 07:10 Dose: 1 cap Hydralazine HCl (Apresoline) 10 mg PO BID [facility] Last Admin: 03/07/20 09:17 Dose: Not Given Levofloxacin/Dextrose (Levaquin In D5w 500 Mg/100 Ml) 100 mls @ 100 mls/hr IV Q48H [facility] Last Admin: 03/06/20 05:01 Dose: 100 mls/hr Meropenem 500 mg/ Sodium (Chloride) 50 mls @ 100 mls/hr IV Q12H [facility] Last Admin: 03/07/20 00:02 Dose: 100 mls/hr Lactated Ringer's (Ringers, Lactated) 1,000 mls @ 25 mls/hr IV ASDIRECTED [facility] Last Admin: 03/06/20 14:53 Dose: 25 mls/hr Fluconazole/Sodium Chloride (100 mg/ Premix) 50 mls @ 100 mls/hr IV Q24H [facility] Last Admin: 03/06/20 10:03 Dose: 100 mls/hr Vancomycin HCl 1.25 gm/ Sodium (Chloride) 250 mls @ 166.667 mls/hr IV Q48H [facility] Ketotifen Fumarate (Ketotifen 0.025% Ophth Soln) 0 ml EYEBOTH BID [facility] Last Admin: 03/07/20 09:18 Dose: Not Given Lactobacillus Rhamnosus (Culturelle) 1 cap PO BID [facility] Last Admin: 03/07/20 09:17 Dose: Not Given Lisinopril (Prinivil) 20 mg PO DAILY [facility] Last Admin: 03/07/20 09:18 Dose: Not Given Lorazepam (Ativan) 0.5 mg IVPUSH Q4H PRN PRN Reason: Agitation Metoprolol Succinate (Toprol Xl) 25 mg PO DAILY [facility] Last Admin: 03/07/20 09:18 Dose: Not Given Morphine Sulfate (Morphine) 4 mg IVPUSH Q2H PRN PRN Reason: Dyspnea Last Admin: 03/07/20 02:28 Dose: 4 mg Ondansetron HCl (Zofran) 4 mg IV Q4H PRN PRN Reason: Nausea/Vomiting Oxybutynin Chloride (Oxybutynin) 5 mg PO BEDTIME [facility] Last Admin: 03/06/20 20:17 Dose: 5 mg Pantoprazole Sodium (Protonix) 40 mg PO ACBREAKFAST [facility] Last Admin: 03/07/20 09:17 Dose: Not Given Polyethylene Glycol (Miralax) 17 gm PO DAILY PRN PRN Reason: Constipation Ropinirole HCl (Requip) 1 mg PO BEDTIME [facility] Last Admin: 03/06/20 20:18 Dose: 1 mg Sodium Chloride (Saline Flush) 10 ml FLUSH ASDIRECTED PRN PRN Reason: Keep Vein Open Tamsulosin HCl (Flomax) 0.4 mg PO DAILY [facility] Last Admin: 03/07/20 09:18 Dose: Not Given Discontinued Medications Bumetanide (Bumex) 2 mg IVPUSH ONETIME ONE Stop: 03/06/20 10:01 Last Admin: 03/06/20 10:02 Dose: 2 mg Bumetanide (Bumex) 4 mg IVPUSH ONETIME ONE Stop: 03/06/20 16:01 Last Admin: 03/06/20 15:38 Dose: 4 mg Enoxaparin Sodium (Lovenox) 30 mg SUBCUT DAILY [facility] Last Admin: 03/04/20 06:05 Dose: 30 mg Furosemide (Lasix) 40 mg IVPUSH ONETIME ONE Stop: 03/04/20 01:41 Last Admin: 03/04/20 02:17 Dose: Not Given Furosemide (Lasix) 60 mg IVPUSH ONETIME ONE Stop: 03/04/20 01:47 Last Admin: 03/04/20 02:16 Dose: 60 mg Haloperidol Lactate (Haldol) 5 mg IVPUSH ONETIME ONE Stop: 03/07/20 00:16 Last Admin: 03/07/20 00:20 Dose: 5 mg Levofloxacin/Dextrose 750 mg/ (Premix) 150 mls @ 100 mls/hr IV ONETIME ONE Stop: 03/04/20 06:14 Last Admin: 03/04/20 06:01 Dose: 100 mls/hr Piperacillin Sod/Tazobactam (Sod 2.25 gm/ Sodium Chloride) 50 mls @ 100 mls/hr IV Q8H [facility] Last Admin: 03/04/20 05:14 Dose: 100 mls/hr Sodium Chloride (Normal Saline) Confirm Administered Dose 50 mls @ as directed .ROUTE .STK-MED ONE Stop: 03/04/20 05:02 Last Admin: 03/04/20 05:16 Dose: 20 mls/hr Lactated Ringer's (Ringers, Lactated) 1,000 mls @ 250 mls/hr IV ASDIRECTED [facility] Stop: 03/04/20 12:16 Last Admin: 03/04/20 12:00 Dose: 250 mls/hr Lactated Ringer's (Ringers, Lactated) 1,000 mls @ 125 mls/hr IV ASDIRECTED [facility] Piperacillin/Tazobactam/ (Dextrose 2.25 gm/ Premix) 50 mls @ 100 mls/hr IV Q8H [facility] Vancomycin HCl 1.5 gm/ Sodium (Chloride) 250 mls @ 166.667 mls/hr IV ONETIME ONE Stop: 03/04/20 09:59 Last Admin: 03/04/20 08:33 Dose: 166.667 mls/hr Vancomycin HCl 1.25 gm/ Sodium (Chloride) 250 mls @ 166.667 mls/hr IV Q48H [facility] Lactated Ringer's (Ringers, Lactated) 500 mls @ 250 mls/hr IV ONETIME ONE Stop: 03/04/20 17:59 Last Admin: 03/04/20 16:37 Dose: 250 mls/hr Lactated Ringer's (Ringers, Lactated) 1,000 mls @ 125 mls/hr IV ASDIRECTED [facility] Last Admin: 03/05/20 02:48 Dose: 125 mls/hr Vancomycin HCl 1.25 gm/ Sodium (Chloride) 250 mls @ 166.667 mls/hr IV Q36H [facility] Last Admin: 03/05/20 19:00 Dose: 166.667 mls/hr Lactobacillus Rhamnosus (Culturelle) 1 cap PO BID [facility] Lorazepam (Ativan) 0.25 mg IVPUSH Q4H PRN PRN Reason: Agitation Last Admin: 03/06/20 22:31 Dose: 0.25 mg Methylprednisolone Sodium Succinate (Solu-Medrol) 125 mg IVPUSH ONETIME ONE Stop: 03/04/20 02:19 Last Admin: 03/04/20 03:18 Dose: 125 mg Methylprednisolone Sodium Succinate (Solu-Medrol) 40 mg IVPUSH Q6H [facility] Last Admin: 03/04/20 06:00 Dose: 40 mg Methylprednisolone Sodium Succinate (Solu-Medrol) 40 mg IVPUSH Q6H [facility] Last Admin: 03/06/20 05:01 Dose: 40 mg Morphine Sulfate (Morphine) 2 mg IVPUSH Q2H PRN PRN Reason: Anxiety Last Admin: 03/07/20 00:05 Dose: 2 mg Vancomycin HCl (Vancomycin) 1 gm IV .PHARMACY TO DOSE [facility] Stop: 03/04/20 05:01 - Exam Quality Assessment: Supplemental Oxygen, Urine Catheter General: No Acute Distress, Obtunded. No: Alert Lungs: Normal Respiratory Effort, Crackles (left lung base), Rhonchi (left side ) Cardiovascular: Regular Rate, Regular Rhythm GI/Abdominal Exam: Normal Bowel Sounds, Soft Extremities: No Pedal Edema. No: Increased Warmth, Mottled Skin: Warm, Dry Psy/Mental Status: No: Alert, Agitated Sepsis Event Note - Evaluation Sepsis Screening Result: No Definite Risk - Focused Exam Vital Signs: Vital Signs Temp Pulse Resp BP BP Pulse Ox 03/07/20 09:17 132/71 03/07/20 08:00 36.1 C 61 16 132/71 84 L 03/07/20 07:32 99 03/07/20 07:10 57 L 03/07/20 05:53 60 15 143/79 H 87 L 03/07/20 04:00 35.8 C L 60 16 132/76 87 L 03/07/20 02:00 58 L 20 134/77 89 L 03/07/20 00:00 36.4 C 71 17 143/88 H 88 L 03/06/20 22:00 78 20 137/81 Date Exam was Performed: 03/07/20 Time Exam was Performed: 14:11 - Problem List Review Problem List Initiated/Reviewed/Updated: Yes - My Orders Last 24 Hours: My Active Orders 03/06/20 09:06 PT Evaluation and Treatment [CONS] Routine 03/06/20 09:07 Dietary Supplements [RC] TIDMEALS Consult to Air Tester [CONS] Routine 03/06/20 10:00 Fluconazole/Normal Saline [Diflucan in NS 200 MG/100 ML] 100 mg Premix Bag 1 bag IV Q24H 03/06/20 14:00 DC Helm Catheter [Urinary Catheter Removal] [RC] Per Unit Routine 03/07/20 00:17 Morphine 4 mg IVPUSH Q2H PRN 03/07/20 00:19 LORazepam [Ativan] 0.5 mg IVPUSH Q4H PRN 03/08/20 05:00 CBC W/O DIFF,HEMOGRAM [HEME] Timed (1) COMPREHENSIVE METABOLIC PN,CMP [CHEM] Timed MAGNESIUM [CHEM] Timed - Plan Plan:: ASSESSMENT AND PLAN BILATERAL PNEUMONIA-he had a significant decline throughout the day yesterday with agitation overnight. Increasing requirements for his respiratory support. He is on a fair amount of support with the noninvasive ventilation at this time and is not interactive. So far family has requested to continue the current level of cares but not escalate any further. I am worried that he has entered the dying process at this time. -Follow-up cultures -IV fluids at to keep open -Continue fluconazole -Continue broad-spectrum antibiotics HYPOXIC RESPIRATORY FAILURE-secondary to bilateral pneumonia and underlying COPD. He has normal left ventricular function on the echocardiogram but does have mild pulmonary hypertension and moderate mitral regurgitation. Respiratory status declining despite aggressive cares. -Noninvasive positive pressure ventilation as needed -Nebs scheduled and as needed -Supplemental oxygen as needed COPD-exacerbation secondary to pneumonia. No wheezing. -Discontinue steroids CHRONIC KIDNEY DISEASE STAGE IV-kidney function stable but urine output not great. -Closely monitor renal function and urine output -Remove Helm catheter this afternoon CHRONIC ANEMIA-hemoglobin improved with transfusion. -Hemoglobin in the morning MAINTENANCE ISSUES -DVT prophylaxis; enoxaparin -GI prophylaxis; not indicated -Helm catheter; placed in the emergency room for strict intake and output monitoring -Nutrition; low-sodium DISPOSITION-anticipate discharge to intermediate if he survives the hospital stay Dirk Ozuna MD
[2020-03-07] MEDS: Fluconazole/Normal Saline 100 MG in Premix Bag 1 BAG IV SCH (10:12)
[2020-03-07] MEDS: rOPINIRole 1 MG Tab PO SCH (20:30)
[2020-03-07] MEDS: Oxybutynin 5 MG Tab PO SCH (20:31)
[2020-03-07] MEDS: LORazepam 2 MG/ML SDV IVPUSH PRN (21:42)
[2020-03-08] MEDS: Meropenem 500 MG in Sodium Chloride 0.9% 50 ML IV SCH ×3 (00:18→23:56)
[2020-03-08] MEDS: Lactated Ringers 1,000 ML IV SCH (05:02)
[2020-03-08] MEDS: Levofloxacin/Dextrose 5%-Water 100 ML IV SCH (05:04)
[2020-03-08] MEDS: Enoxaparin 30 MG/0.3 ML Syringe SUBCUT SCH (05:05)
[2020-03-08] MEDS: Morphine 4 MG/ML Syringe IVPUSH PRN ×3 (05:14→21:15)
[2020-03-08] MEDS: Glycopyrrolate 15.6 MCG Cap.W.Dev Kit of 6 IH SCH ×2 (07:04→20:43)
[2020-03-08] MEDS: Albuterol/Ipratropium 3.0-0.5 MG/3 ML Neb Soln NEB SCH ×4 (07:04→20:42)
[2020-03-08] MEDS: Pantoprazole 40 MG Tab.CR PO SCH (09:23)
[2020-03-08] MEDS: hydrALAZINE 10 MG Tab PO SCH (09:23)
[2020-03-08] MEDS: Lactobacillus Rhamnosus GG (Probiotic) Cap PO SCH (09:23)
[2020-03-08] MEDS: Tamsulosin 0.4 MG Cap.ER PO SCH (09:23)
[2020-03-08] MEDS: Fluticasone Propionate Nasal Spray 16 GM Bottle NAS SCH (09:24)
[2020-03-08] MEDS: Lisinopril 20 MG Tab PO SCH (09:24)
[2020-03-08] MEDS: Metoprolol Succinate 25 MG Tab.ER PO SCH (09:24)
[2020-03-08] MEDS: Finasteride 5 MG Tab PO SCH (09:24)
[2020-03-08] MEDS: amLODIPine 10 MG Tab PO SCH (09:24)
[2020-03-08] MEDS: Fluconazole/Normal Saline 100 MG in Premix Bag 1 BAG IV SCH (09:34)
[2020-03-08] MEDS: Ketotifen 0.025% Ophth Soln 5 ML Bottle EYEBOTH SCH ×2 (09:34→20:42)
--- NOTE | 2020-03-08 09:37 | PCM.PN ---
- General Info Date of Service: 03/08/20 Subjective Update: There were no acute events overnight. For the most part he was calm and cooperative and left the noninvasive ventilation mask on. He continues to be fairly lethargic but he does respond to questions with yes and no answers. He is up to 70% on the FiO2. Heart rate has been stable and he has not had any fevers. He has been coughing more. He does not report any pain today. I expressed my concern about the severity of his pneumonia and that he may be dying. We reviewed that he is on very aggressive treatment for both bacterial and fungal infections. We reviewed that he is needing more and more support from the noninvasive ventilation and without his his oxygen saturations dropped down to 70 very quickly. I expressed my concern that without the mask he would likely very quickly. We discussed a transition to comfort cares versus continuing her current level of care and at this point he does not want to stop doing anything that we are already doing. His sister, brother and daughter were present during the second round of conversations this morning. - Review of Systems General: Denies: Fever - Patient Data Vitals - Most Recent: Last Vital Signs Temp 36.9 C 03/08/20 08:00 Pulse 86 03/08/20 08:00 Resp 15 03/08/20 08:00 BP 126/78 03/08/20 08:00 Pulse Ox 88 L 03/08/20 08:42 Weight - Most Recent: 77.564 kg I&O - Last 24 Hours: Intake & Output 03/07/20 03/08/20 03/08/20 22:59 06:59 14:59 Intake Total 80 346 Output Total 500 550 Balance -420 -204 Lab Results Last 24 Hours: Laboratory Results - last 24 hr 03/08/20 03/08/20 Range/Units 06:01 06:01 WBC 18.1 H (4.5-11.0) K/uL RBC 3.12 L (4.30-5.90) M/uL Hgb 9.3 L (12.0-15.0) g/dL Hct 31.0 L (40.0-54.0) % MCV 99 H (80-98) fL MCH 30 (27-31) pg MCHC 30 L (32-36) % Plt Count 270 (150-400) K/uL Sodium 151 H (140-148) mmol/L Potassium 4.3 (3.6-5.2) mmol/L Chloride 117 H (100-108) mmol/L Carbon Dioxide 23 (21-32) mmol/L Anion Gap 15.3 H (5.0-14.0) mmol/L BUN 55 H (7-18) mg/dL Creatinine 3.3 H (0.8-1.3) mg/dL Est Cr Clr Drug Dosing 16.92 mL/min Estimated GFR (MDRD) 18 L (>60) Glucose 80 (74-106) mg/dL Calcium 7.5 L (8.5-10.1) mg/dL Magnesium 3.2 H (1.8-2.4) mg/dL Total Bilirubin 0.3 (0.2-1.0) mg/dL AST 63 H (15-37) U/L ALT 31 (12-78) U/L Alkaline Phosphatase 63 (46-116) U/L Total Protein 5.2 L (6.4-8.2) g/dL Albumin 1.4 L (3.4-5.0) g/dL Globulin 3.8 H (2.3-3.5) g/dL Albumin/Globulin Ratio 0.4 L (1.2-2.2) Jules Results Last 24 Hours: Microbiology 03/04/20 02:05 Aerobic Blood Culture - Preliminary Blood - Venous NO GROWTH AFTER 4 DAYS Anaerobic Blood Culture - Preliminary NO GROWTH AFTER 4 DAYS 03/04/20 02:30 Aerobic Blood Culture - Preliminary Blood - Venous - Lab Draw NO GROWTH AFTER 4 DAYS Anaerobic Blood Culture - Preliminary NO GROWTH AFTER 4 DAYS 03/04/20 22:13 Gram Stain - Final Sputum - Expectorated Respiratory Culture - Final Enterococcus Faecalis YEAST Med Orders - Current: Current Medications Acetaminophen (Tylenol) 650 mg PO Q4H PRN PRN Reason: Pain (Mild 1-3)/fever Last Admin: 03/06/20 20:30 Dose: 650 mg Albuterol/Ipratropium (Duoneb 3.0-0.5 Mg/3 Ml) 3 ml NEB QIDRT [facility] Last Admin: 03/08/20 07:04 Dose: 3 ml Amlodipine Besylate (Norvasc) 10 mg PO DAILY [facility] Last Admin: 03/08/20 09:24 Dose: Not Given Enoxaparin Sodium (Lovenox) 30 mg SUBCUT Q24H [facility] Last Admin: 03/08/20 05:05 Dose: 30 mg Finasteride (Proscar) 5 mg PO DAILY [facility] Last Admin: 03/08/20 09:24 Dose: Not Given Glycopyrrolate (Seebri Neohaler) 15.6 mcg IH BIDRT [facility] Last Admin: 03/08/20 07:04 Dose: 1 cap Hydralazine HCl (Apresoline) 10 mg PO BID [facility] Last Admin: 03/08/20 09:23 Dose: Not Given Levofloxacin/Dextrose (Levaquin In D5w 500 Mg/100 Ml) 100 mls @ 100 mls/hr IV Q48H [facility] Last Admin: 03/08/20 05:04 Dose: 100 mls/hr Meropenem 500 mg/ Sodium (Chloride) 50 mls @ 100 mls/hr IV Q12H [facility] Last Admin: 03/08/20 00:18 Dose: 100 mls/hr Fluconazole/Sodium Chloride (100 mg/ Premix) 50 mls @ 100 mls/hr IV Q24H [facility] Last Admin: 03/08/20 09:34 Dose: 100 mls/hr Vancomycin HCl 1.25 gm/ Sodium (Chloride) 250 mls @ 166.667 mls/hr IV Q48H [facility] Last Admin: 03/07/20 15:57 Dose: 166.667 mls/hr Ketotifen Fumarate (Ketotifen 0.025% Ophth Soln) 0 ml EYEBOTH BID [facility] Last Admin: 03/08/20 09:34 Dose: 1 drop Lactobacillus Rhamnosus (Culturelle) 1 cap PO BID [facility] Last Admin: 03/08/20 09:23 Dose: Not Given Lisinopril (Prinivil) 20 mg PO DAILY [facility] Last Admin: 03/08/20 09:24 Dose: Not Given Lorazepam (Ativan) 0.5 mg IVPUSH Q4H PRN PRN Reason: Agitation Last Admin: 03/07/20 21:42 Dose: 0.5 mg Metoprolol Succinate (Toprol Xl) 25 mg PO DAILY [facility] Last Admin: 03/08/20 09:24 Dose: Not Given Morphine Sulfate (Morphine) 4 mg IVPUSH Q2H PRN PRN Reason: Dyspnea Last Admin: 03/08/20 05:14 Dose: 4 mg Ondansetron HCl (Zofran) 4 mg IV Q4H PRN PRN Reason: Nausea/Vomiting Oxybutynin Chloride (Oxybutynin) 5 mg PO BEDTIME [facility] Last Admin: 03/07/20 20:31 Dose: 5 mg Pantoprazole Sodium (Protonix) 40 mg PO ACBREAKFAST [facility] Last Admin: 03/08/20 09:23 Dose: Not Given Polyethylene Glycol (Miralax) 17 gm PO DAILY PRN PRN Reason: Constipation Ropinirole HCl (Requip) 1 mg PO BEDTIME [facility] Last Admin: 03/07/20 20:30 Dose: 1 mg Sodium Chloride (Saline Flush) 10 ml FLUSH ASDIRECTED PRN PRN Reason: Keep Vein Open Tamsulosin HCl (Flomax) 0.4 mg PO DAILY [facility] Last Admin: 03/08/20 09:23 Dose: Not Given Discontinued Medications Bumetanide (Bumex) 2 mg IVPUSH ONETIME ONE Stop: 03/06/20 10:01 Last Admin: 03/06/20 10:02 Dose: 2 mg Bumetanide (Bumex) 4 mg IVPUSH ONETIME ONE Stop: 03/06/20 16:01 Last Admin: 03/06/20 15:38 Dose: 4 mg Enoxaparin Sodium (Lovenox) 30 mg SUBCUT DAILY [facility] Last Admin: 03/04/20 06:05 Dose: 30 mg Fluticasone Propionate (Flonase) 0 gm DOUG DAILY [facility] Last Admin: 03/08/20 09:24 Dose: Not Given Furosemide (Lasix) 40 mg IVPUSH ONETIME ONE Stop: 03/04/20 01:41 Last Admin: 03/04/20 02:17 Dose: Not Given Furosemide (Lasix) 60 mg IVPUSH ONETIME ONE Stop: 03/04/20 01:47 Last Admin: 03/04/20 02:16 Dose: 60 mg Haloperidol Lactate (Haldol) 5 mg IVPUSH ONETIME ONE Stop: 03/07/20 00:16 Last Admin: 03/07/20 00:20 Dose: 5 mg Levofloxacin/Dextrose 750 mg/ (Premix) 150 mls @ 100 mls/hr IV ONETIME ONE Stop: 03/04/20 06:14 Last Admin: 03/04/20 06:01 Dose: 100 mls/hr Piperacillin Sod/Tazobactam (Sod 2.25 gm/ Sodium Chloride) 50 mls @ 100 mls/hr IV Q8H [facility] Last Admin: 03/04/20 05:14 Dose: 100 mls/hr Sodium Chloride (Normal Saline) Confirm Administered Dose 50 mls @ as directed .ROUTE .STK-MED ONE Stop: 03/04/20 05:02 Last Admin: 03/04/20 05:16 Dose: 20 mls/hr Lactated Ringer's (Ringers, Lactated) 1,000 mls @ 250 mls/hr IV ASDIRECTED [facility] Stop: 03/04/20 12:16 Last Admin: 03/04/20 12:00 Dose: 250 mls/hr Lactated Ringer's (Ringers, Lactated) 1,000 mls @ 125 mls/hr IV ASDIRECTED [facility] Piperacillin/Tazobactam/ (Dextrose 2.25 gm/ Premix) 50 mls @ 100 mls/hr IV Q8H [facility] Vancomycin HCl 1.5 gm/ Sodium (Chloride) 250 mls @ 166.667 mls/hr IV ONETIME ONE Stop: 03/04/20 09:59 Last Admin: 03/04/20 08:33 Dose: 166.667 mls/hr Vancomycin HCl 1.25 gm/ Sodium (Chloride) 250 mls @ 166.667 mls/hr IV Q48H [facility] Lactated Ringer's (Ringers, Lactated) 500 mls @ 250 mls/hr IV ONETIME ONE Stop: 03/04/20 17:59 Last Admin: 03/04/20 16:37 Dose: 250 mls/hr Lactated Ringer's (Ringers, Lactated) 1,000 mls @ 125 mls/hr IV ASDIRECTED [facility] Last Admin: 03/05/20 02:48 Dose: 125 mls/hr Lactated Ringer's (Ringers, Lactated) 1,000 mls @ 25 mls/hr IV ASDIRECTED [facility] Last Admin: 03/08/20 05:02 Dose: 25 mls/hr Vancomycin HCl 1.25 gm/ Sodium (Chloride) 250 mls @ 166.667 mls/hr IV Q36H [facility] Last Admin: 03/05/20 19:00 Dose: 166.667 mls/hr Lactobacillus Rhamnosus (Culturelle) 1 cap PO BID [facility] Lorazepam (Ativan) 0.25 mg IVPUSH Q4H PRN PRN Reason: Agitation Last Admin: 03/06/20 22:31 Dose: 0.25 mg Methylprednisolone Sodium Succinate (Solu-Medrol) 125 mg IVPUSH ONETIME ONE Stop: 03/04/20 02:19 Last Admin: 03/04/20 03:18 Dose: 125 mg Methylprednisolone Sodium Succinate (Solu-Medrol) 40 mg IVPUSH Q6H [facility] Last Admin: 03/04/20 06:00 Dose: 40 mg Methylprednisolone Sodium Succinate (Solu-Medrol) 40 mg IVPUSH Q6H [facility] Last Admin: 03/06/20 05:01 Dose: 40 mg Morphine Sulfate (Morphine) 2 mg IVPUSH Q2H PRN PRN Reason: Anxiety Last Admin: 03/07/20 00:05 Dose: 2 mg Vancomycin HCl (Vancomycin) 1 gm IV .PHARMACY TO DOSE [facility] Stop: 03/04/20 05:01 - Exam Quality Assessment: Supplemental Oxygen General: Alert, Cooperative, No Acute Distress HEENT: Pupils Equal Lungs: Crackles, Rhonchi. No: Normal Respiratory Effort (increased work of breathing ), Wheezing Cardiovascular: Regular Rate, Regular Rhythm GI/Abdominal Exam: Normal Bowel Sounds, Soft, Non-Tender, No Distention Extremities: No Pedal Edema. No: Increased Warmth, Mottled Skin: Warm, Dry Psy/Mental Status: Alert. No: Agitated Sepsis Event Note - Evaluation Sepsis Screening Result: No Definite Risk - Focused Exam Vital Signs: Vital Signs Temp Pulse Resp BP Pulse Ox Pulse Ox 03/08/20 08:42 88 L 03/08/20 08:00 36.9 C 86 15 126/78 89 L 03/08/20 07:26 86 L 03/08/20 07:05 78 03/08/20 06:00 75 16 128/75 86 L 03/08/20 04:00 36.6 C 75 17 125/62 88 L 03/08/20 02:00 71 17 125/60 91 L 03/08/20 00:00 36.6 C 76 18 128/68 87 L 03/07/20 22:00 72 20 132/67 89 L Date Exam was Performed: 03/08/20 Time Exam was Performed: 13:30 - Problem List Review Problem List Initiated/Reviewed/Updated: Yes - My Orders Last 24 Hours: My Active Orders 03/07/20 09:49 Urinary Catheter Assessment [RC] ASDIRECTED 03/07/20 10:00 Helm Catheter Insertion [Insert Urinary Catheter] [OM.PC] Q24H 03/08/20 09:45 Dextrose 5% in Water @ 50 MLS/HR(1000ml) Dextrose 5% in Water 1,000 ml IV ASDIRECTED 03/09/20 05:00 BASIC METABOLIC PANEL,BMP [CHEM] Timed CBC W/O DIFF,HEMOGRAM [HEME] Timed (1) - Plan Plan:: ASSESSMENT AND PLAN BILATERAL PNEUMONIA-he had a significant decline over the past couple of days. Needing more and more supplemental oxygen and becoming more weak and lethargic. Seems to be noninvasive ventilation dependent at this time. I believe he is entering the dying process at this point and will not survive this infection. He does not want to stop receiving the current level of care but understands there is not much more we can do beyond what we are doing at this time. His cultures did grow out yeast and enterococcus. -Continue fluconazole -Continue broad-spectrum antibiotics -Morphine and lorazepam for comfort HYPOXIC RESPIRATORY FAILURE-secondary to bilateral pneumonia and underlying COPD. He has normal left ventricular function on the echocardiogram but does have mild pulmonary hypertension and moderate mitral regurgitation. Respiratory status declining despite aggressive cares. -Noninvasive positive pressure ventilation as needed -Nebs scheduled and as needed -Supplemental oxygen as needed Hypernatremia-mild at this time. -Change IV fluids to D5W COPD-exacerbation secondary to pneumonia. No wheezing. -Management as above CHRONIC KIDNEY DISEASE STAGE IV-kidney function stable but very compromised. -Closely monitor renal function and urine output CHRONIC ANEMIA-hemoglobin stable. -Hemoglobin in the morning MAINTENANCE ISSUES -DVT prophylaxis; enoxaparin -GI prophylaxis; not indicated -Helm catheter; placed in the emergency room for strict intake and output monitoring, will remain in place with the critical nature of his current illness -Nutrition; low-sodium DISPOSITION-anticipate discharge to [facility] if he survives the hospital stay Dirk Ozuna MD
[2020-03-08] MEDS: Dextrose 5% in Water 1,000 ML IV SCH (10:55)
[2020-03-08] MEDS: Oxybutynin 5 MG Tab PO SCH (20:43)
[2020-03-08] MEDS: LORazepam 2 MG/ML SDV IVPUSH PRN (22:13)
[2020-03-09] MEDS: Enoxaparin 30 MG/0.3 ML Syringe SUBCUT SCH (05:37)
[2020-03-09] MEDS: Albuterol/Ipratropium 3.0-0.5 MG/3 ML Neb Soln NEB SCH ×2 (07:02→10:54)
[2020-03-09] MEDS: Glycopyrrolate 15.6 MCG Cap.W.Dev Kit of 6 IH SCH (07:02)
[2020-03-09] MEDS: Dextrose 5% in Water 1,000 ML IV SCH (08:02)
[2020-03-09] MEDS: Ketotifen 0.025% Ophth Soln 5 ML Bottle EYEBOTH SCH (08:32)
[2020-03-09] MEDS: Morphine 4 MG/ML Syringe IVPUSH PRN (08:32)
[2020-03-09] MEDS: Fluconazole/Normal Saline 100 MG in Premix Bag 1 BAG IV SCH (09:57)
[2020-03-09 10:02] VITALS: BP 139/76
[2020-03-09 10:55] VITALS: PULSE 77
[2020-03-09] MEDS ORDERED: Morphine 4 MG/ML Syringe IVPUSH PRN (11:56)
[2020-03-09] MEDS ORDERED: LORazepam 2 MG/ML SDV IVPUSH PRN (11:58)
--- NOTE | 2020-03-09 12:04 | PCM.SN.2 ---
- Free Text/Narrative Note: Skip has declined overnight with increasing respiratory compromise and increasing supplemental oxygen requirements. He is no longer alert or interactive. He is somewhat restless but appears comfortable for the most part. He is now requiring 75% FiO2 via the noninvasive ventilation. I talked to his sister, brother and daughter about the worsening situation. After several conversations they have now elected to transition to comfort cares only. They understand that after the noninvasive ventilation mask is removed that he will likely very quickly. We will utilize morphine and lorazepam to help keep him comfortable while he is passing. Medications other than the comfort measures have been discontinued. He is now DNR/DNI with comfort measures. Dirk Ozuna MD
--- NOTE | 2020-03-09 13:28 | PCM.DCSUM1 ---
Discharge Summary - Hospital Course Brief History: 79-year-old male with history of recent treatment for a left lung pneumonia, COPD, stage IV chronic kidney disease who presented with progressive shortness of breath, weakness and lethargy about 5 days after a recent hospital discharge for left lung pneumonia. Work-up in the emergency room was consistent with bilateral pneumonia with increasing left lung infiltrate and new right lung infiltrate complicated by hypoxic respiratory failure. He was started on broad-spectrum antibiotics and admitted for management. - Discharge Data Discharge Date: 03/09/20 Discharge Disposition: 20 Preliminary Cause of *Q: Respiratory Failure (bilateral pneumonia) Condition: - Referral to Home Health Primary Care Physician: PCP None - Discharge Diagnosis/Problem(s) (1) Bilateral pneumonia SNOMED Code(s): 565502090 ICD Code: J18.9 - PNEUMONIA, UNSPECIFIED ORGANISM Status: Acute Qualifiers: Pneumonia type: due to unspecified organism Lung location: lower lobe of lung Qualified Code(s): J18.9 - Pneumonia, unspecified organism (2) Acute respiratory failure with hypoxia SNOMED Code(s): 70593665, 789108464 ICD Code: J96.01 - ACUTE RESPIRATORY FAILURE WITH HYPOXIA Status: Acute (3) COPD (chronic obstructive pulmonary disease) SNOMED Code(s): 70031082 ICD Code: J44.9 - CHRONIC OBSTRUCTIVE PULMONARY DISEASE, UNSPECIFIED Status : Chronic Qualifiers: Chronic bronchitis type: unspecified (4) CKD (chronic kidney disease), stage IV SNOMED Code(s): 794505911 ICD Code: N18.4 - CHRONIC KIDNEY DISEASE, STAGE 4 (SEVERE) Status: Chronic (5) Rheumatoid arthritis SNOMED Code(s): 11997741 ICD Code: M06.9 - RHEUMATOID ARTHRITIS, UNSPECIFIED Status: Chronic Qualifiers: Rheumatoid arthritis location: multiple sites - Patient Summary/Data Consults: Consultations 03/06/20 09:06 PT Evaluation and Treatment [CONS] Routine Please Evaluate and Treat. PT Reason for Consult: Strengthening This query below is only for informational purposes and is not editable. Admission Diagnosis/Problem: Pneumonia 03/06/20 09:07 Consult to Contact Person [CONS] Routine Comment: Physician Instructions: Quantity: Reason for Consult: poor appetite, hoping for recs to boost appetite Hospital Course: Skip presented to the emergency room with progressive cough, shortness of breath and weakness as well as lethargy. He had recently been admitted for management of a left lung pneumonia and had been discharged home with home oxygen. Work-up upon arrival to the emergency room was suggestive of acute hypoxic respiratory failure that was worse than previous. Chest x-ray suggested a bilateral pneumonia with increasing left lung infiltrate and new right lung infiltrate. His white blood cell count was elevated but he was not febrile and did not have evidence for sepsis. Because of the recent antibiotic therapy he was started on broad-spectrum antibiotic therapy. Cultures were obtained. He was tested for COVID19 and this was negative. He was admitted to the intensive care unit for further management. He did require noninvasive ventilation at the time of admission. Over the first 24 hours we did see some improvement in his respiratory status and we were able to wean him off of the noninvasive ventilation. By the morning after admission he was sitting up and more alert and interactive. We obtained a sputum sample which showed gram- positive cocci as well as moderate yeast so we added fluconazole to the 3 antibiotic regimen. He was stable over the next 24 hours of the hospital stay. White blood cell count was slowly coming down and he had remained afebrile. Unfortunately about 60 hours into the hospital stay his condition started to decline. He had episodes of agitation and increasing supplemental oxygen requirements. He was placed back on the not invasive ventilation. There was some evidence for volume overload but he did not respond well to diuresis. His culture results from the respiratory culture returned with germ tube positive yeast as well as enterococcus. These should both have been covered by his current antibiotic therapy. Over the next couple of days we had even further decline in his respiratory status with slowly decreasing mental status and increasing oxygen requirement. He also required increasing pressures via the noninvasive ventilation. He was a DO NOT INTUBATE so we titrated the noninvasive ventilation as best we could. Family was alerted to the declining respiratory status despite aggressive measures to treat the suspected pulmonary infection. With his declining respiratory status and decreasing mental status I had multiple conversations with family including sister, brother and daughter. With further decline in his respiratory status on March 09 the family elected to transition him to comfort care only. They felt that these aggressive measures would not be within his previously expressed wishes. The noninvasive ventilation was removed and he received a dose of morphine. He very quickly after the noninvasive ventilation was removed. He peacefully with his daughter at the bedside. No attempts at resuscitation were made per his previously expressed wishes. - Discharge Plan Home Medications: Home Meds Calcium Carbonate/Vitamin D3 [Caltrate 600+D 1500 MG-400 Units] 1 tab PO TID [History] Multivitamins/Iron/Folic Acid [Cerovite Advanced Formula] 1 tab PO DAILY [History] Omeprazole 40 mg PO DAILY 12/25/13 [History] Tamsulosin HCl 0.4 mg PO DAILY 12/25/13 [History] amLODIPine Besylate [Amlodipine Besylate] 10 mg PO DAILY 12/25/13 [History] Ibuprofen [Motrin] 800 mg PO Q6HR PRN 01/28/16 [History] Triamcinolone Acetonide [Kenalog 0.1% Crm] 0.1 percent TOP TID PRN 01/28/16 [ History] Azelastine [Optivar 0.05% Ophth Soln] 1 drop TOP BID 12/20/16 [History] Finasteride [Proscar] 5 mg PO DAILY 12/20/16 [History] Oxybutynin 5 mg PO BEDTIME 12/20/16 [History] rOPINIRole HCl [Requip] 1 mg PO BEDTIME 12/20/16 [History] Alendronate Sodium [Fosamax] 70 mg PO Q7D 10/21/18 [History] Bacitracin [Bacitracin Oint] 1 applic TOP BID PRN 10/21/18 [History] Hydroxychloroquine Sulfate [Plaquenil] 200 mg PO BID 10/21/18 [History] Lisinopril 20 mg PO DAILY 10/21/18 [History] Nystatin [Mycostatin] 5 ml PO QID PRN 10/21/18 [History] Potassium Chloride 15 ml PO DAILY 10/21/18 [History] Tiotropium [Spiriva HandiHaler] 1 puff INH DAILY 10/21/18 [History] predniSONE [Prednisone] 5 mg PO DAILY 10/21/18 [History] Acetaminophen 1,000 mg PO TID PRN 10/22/18 [History] Loperamide [Imodium] 2 mg PO ASDIRECTED PRN 10/22/18 [History] Magnesium Hydroxide [Milk of Magnesia] 30 ml PO DAILY 10/22/18 [History] Fluticasone Propionate [Flonase] 2 sprays NS DAILY 12/22/19 [History] Ipratropium [Atrovent 0.06% Nasal [place]] 2 puff NASBOTH BEDTIME 12/22/19 [ History] Metoprolol Succinate [Toprol XL] 25 mg PO DAILY 12/22/19 [History] hydroCHLOROthiazide [Hydrochlorothiazide] 25 mg PO DAILY 12/22/19 [History] Naproxen 500 mg PO BID 12/23/19 [History] Starch [Thick-It] 1 scoop PO ASDIRECTED 12/23/19 [History] hydrALAZINE [Apresoline] 10 mg PO BID 02/23/20 [History] Lactobacillus Rhamnosus GG [Culturelle] 1 cap PO BID 03/04/20 [History] Referrals: PCP,None [Primary Care Provider] - - Discharge Summary/Plan Comment DC Time >30 min.: No - Patient Data Vitals - Most Recent: Last Vital Signs Temp 36.3 C 03/09/20 08:00 Pulse 77 03/09/20 10:54 Resp 13 03/09/20 10:00 BP 139/76 03/09/20 10:00 Pulse Ox 88 L 03/09/20 10:00 Weight - Most Recent: 77.7 kg I&O - Last 24 hours: Intake & Output 03/08/20 03/09/20 03/09/20 22:59 06:59 14:59 Intake Total 534 621 Output Total 550 450 Balance -16 171 Lab Results - Last 24 hrs: Laboratory Results - last 24 hr 03/05/20 03/09/20 03/09/20 Range/Units 05:39 05:00 05:00 WBC 16.8 H (4.5-11.0) K/uL RBC 2.92 L (4.30-5.90) M/uL Hgb 9.0 L (12.0-15.0) g/dL Hct 29.0 L (40.0-54.0) % MCV 99 H (80-98) fL MCH 31 (27-31) pg MCHC 31 L (32-36) % Plt Count 172 (150-400) K/uL Sodium 148 (140-148) mmol/L Potassium 4.5 (3.6-5.2) mmol/L Chloride 115 H (100-108) mmol/L Carbon Dioxide 23 (21-32) mmol/L Anion Gap 14.5 H (5.0-14.0) mmol/L BUN 54 H (7-18) mg/dL Creatinine 3.2 H (0.8-1.3) mg/dL Est Cr Clr Drug Dosing 17.45 mL/min Estimated GFR (MDRD) 19 L (>60) Glucose 93 (74-106) mg/dL Calcium 7.2 L (8.5-10.1) mg/dL Crossmatch See Detail JANELLE Results - Last 24 hrs: Microbiology 03/04/20 02:30 Aerobic Blood Culture - Final Blood - Venous - Lab Draw NO GROWTH AFTER 5 DAYS Anaerobic Blood Culture - Final NO GROWTH AFTER 5 DAYS 03/04/20 02:05 Aerobic Blood Culture - Final Blood - Venous NO GROWTH AFTER 5 DAYS Anaerobic Blood Culture - Final NO GROWTH AFTER 5 DAYS Med Orders - Current: Current Medications Amlodipine Besylate (Norvasc) 10 mg PO DAILY [facility] Last Admin: 03/08/20 09:24 Dose: Not Given Finasteride (Proscar) 5 mg PO DAILY [facility] Last Admin: 03/08/20 09:24 Dose: Not Given Hydralazine HCl (Apresoline) 10 mg PO BID [facility] Last Admin: 03/08/20 09:23 Dose: Not Given Dextrose/Water (Dextrose 5% In Water) 1,000 mls @ 50 mls/hr IV ASDIRECTED [facility] Last Admin: 03/09/20 08:02 Dose: 50 mls/hr Lactobacillus Rhamnosus (Culturelle) 1 cap PO BID [facility] Last Admin: 03/08/20 09:23 Dose: Not Given Lisinopril (Prinivil) 20 mg PO DAILY [facility] Last Admin: 03/08/20 09:24 Dose: Not Given Lorazepam (Ativan) 0.5 mg IVPUSH ASDIRECTED PRN PRN Reason: Agitation Metoprolol Succinate (Toprol Xl) 25 mg PO DAILY [facility] Last Admin: 03/08/20 09:24 Dose: Not Given Morphine Sulfate (Morphine) 4 mg IVPUSH Q15M PRN PRN Reason: Dyspnea Last Admin: 03/09/20 12:12 Dose: 4 mg Pantoprazole Sodium (Protonix) 40 mg PO ACBREAKFAST [facility] Last Admin: 03/08/20 09:23 Dose: Not Given Ropinirole HCl (Requip) 1 mg PO BEDTIME [facility] Last Admin: 03/07/20 20:30 Dose: 1 mg Sodium Chloride (Saline Flush) 10 ml FLUSH ASDIRECTED PRN PRN Reason: Keep Vein Open Tamsulosin HCl (Flomax) 0.4 mg PO DAILY [facility] Last Admin: 03/08/20 09:23 Dose: Not Given Discontinued Medications Acetaminophen (Tylenol) 650 mg PO Q4H PRN PRN Reason: Pain (Mild 1-3)/fever Last Admin: 03/06/20 20:30 Dose: 650 mg Albuterol/Ipratropium (Duoneb 3.0-0.5 Mg/3 Ml) 3 ml NEB QIDRT [facility] Last Admin: 03/09/20 10:54 Dose: 3 ml Bumetanide (Bumex) 2 mg IVPUSH ONETIME ONE Stop: 03/06/20 10:01 Last Admin: 03/06/20 10:02 Dose: 2 mg Bumetanide (Bumex) 4 mg IVPUSH ONETIME ONE Stop: 03/06/20 16:01 Last Admin: 03/06/20 15:38 Dose: 4 mg Enoxaparin Sodium (Lovenox) 30 mg SUBCUT DAILY [facility] Last Admin: 03/04/20 06:05 Dose: 30 mg Enoxaparin Sodium (Lovenox) 30 mg SUBCUT Q24H [facility] Last Admin: 03/09/20 05:37 Dose: 30 mg Fluticasone Propionate (Flonase) 0 gm DOUG DAILY [facility] Last Admin: 03/08/20 09:24 Dose: Not Given Furosemide (Lasix) 40 mg IVPUSH ONETIME ONE Stop: 03/04/20 01:41 Last Admin: 03/04/20 02:17 Dose: Not Given Furosemide (Lasix) 60 mg IVPUSH ONETIME ONE Stop: 03/04/20 01:47 Last Admin: 03/04/20 02:16 Dose: 60 mg Glycopyrrolate (Seebri Neohaler) 15.6 mcg IH BIDRT [facility] Last Admin: 03/09/20 07:02 Dose: 1 cap Haloperidol Lactate (Haldol) 5 mg IVPUSH ONETIME ONE Stop: 03/07/20 00:16 Last Admin: 03/07/20 00:20 Dose: 5 mg Levofloxacin/Dextrose 750 mg/ (Premix) 150 mls @ 100 mls/hr IV ONETIME ONE Stop: 03/04/20 06:14 Last Admin: 03/04/20 06:01 Dose: 100 mls/hr Piperacillin Sod/Tazobactam (Sod 2.25 gm/ Sodium Chloride) 50 mls @ 100 mls/hr IV Q8H [facility] Last Admin: 03/04/20 05:14 Dose: 100 mls/hr Levofloxacin/Dextrose (Levaquin In D5w 500 Mg/100 Ml) 100 mls @ 100 mls/hr IV Q48H [facility] Last Admin: 03/08/20 05:04 Dose: 100 mls/hr Sodium Chloride (Normal Saline) Confirm Administered Dose 50 mls @ as directed .ROUTE .[facility] Stop: 03/04/20 05:02 Last Admin: 03/04/20 05:16 Dose: 20 mls/hr Lactated Ringer's (Ringers, Lactated) 1,000 mls @ 250 mls/hr IV ASDIRECTED [facility] Stop: 03/04/20 12:16 Last Admin: 03/04/20 12:00 Dose: 250 mls/hr Lactated Ringer's (Ringers, Lactated) 1,000 mls @ 125 mls/hr IV ASDIRECTED [facility] Piperacillin/Tazobactam/ (Dextrose 2.25 gm/ Premix) 50 mls @ 100 mls/hr IV Q8H [facility] Vancomycin HCl 1.5 gm/ Sodium (Chloride) 250 mls @ 166.667 mls/hr IV ONETIME ONE Stop: 03/04/20 09:59 Last Admin: 03/04/20 08:33 Dose: 166.667 mls/hr Vancomycin HCl 1.25 gm/ Sodium (Chloride) 250 mls @ 166.667 mls/hr IV Q48H [facility] Meropenem 500 mg/ Sodium (Chloride) 50 mls @ 100 mls/hr IV Q12H [facility] Last Admin: 03/08/20 23:56 Dose: 100 mls/hr Lactated Ringer's (Ringers, Lactated) 500 mls @ 250 mls/hr IV ONETIME ONE Stop: 03/04/20 17:59 Last Admin: 03/04/20 16:37 Dose: 250 mls/hr Lactated Ringer's (Ringers, Lactated) 1,000 mls @ 125 mls/hr IV ASDIRECTED [facility] Last Admin: 03/05/20 02:48 Dose: 125 mls/hr Lactated Ringer's (Ringers, Lactated) 1,000 mls @ 25 mls/hr IV ASDIRECTED [facility] Last Admin: 03/08/20 05:02 Dose: 25 mls/hr Vancomycin HCl 1.25 gm/ Sodium (Chloride) 250 mls @ 166.667 mls/hr IV Q36H [facility] Last Admin: 03/05/20 19:00 Dose: 166.667 mls/hr Fluconazole/Sodium Chloride (100 mg/ Premix) 50 mls @ 100 mls/hr IV Q24H [facility] Last Admin: 03/09/20 09:57 Dose: 100 mls/hr Vancomycin HCl 1.25 gm/ Sodium (Chloride) 250 mls @ 166.667 mls/hr IV Q48H [facility] Last Admin: 03/07/20 15:57 Dose: 166.667 mls/hr Ketotifen Fumarate (Ketotifen 0.025% Ophth Soln) 0 ml EYEBOTH BID [facility] Last Admin: 03/09/20 08:32 Dose: 1 drop Lactobacillus Rhamnosus (Culturelle) 1 cap PO BID [facility] Lorazepam (Ativan) 0.25 mg IVPUSH Q4H PRN PRN Reason: Agitation Last Admin: 03/06/20 22:31 Dose: 0.25 mg Lorazepam (Ativan) 0.5 mg IVPUSH Q4H PRN PRN Reason: Agitation Last Admin: 03/08/20 22:13 Dose: 0.5 mg Methylprednisolone Sodium Succinate (Solu-Medrol) 125 mg IVPUSH ONETIME ONE Stop: 03/04/20 02:19 Last Admin: 03/04/20 03:18 Dose: 125 mg Methylprednisolone Sodium Succinate (Solu-Medrol) 40 mg IVPUSH Q6H [facility] Last Admin: 03/04/20 06:00 Dose: 40 mg Methylprednisolone Sodium Succinate (Solu-Medrol) 40 mg IVPUSH Q6H [facility] Last Admin: 03/06/20 05:01 Dose: 40 mg Morphine Sulfate (Morphine) 2 mg IVPUSH Q2H PRN PRN Reason: Anxiety Last Admin: 03/07/20 00:05 Dose: 2 mg Morphine Sulfate (Morphine) 4 mg IVPUSH Q2H PRN PRN Reason: Dyspnea Last Admin: 03/09/20 08:32 Dose: 4 mg Ondansetron HCl (Zofran) 4 mg IV Q4H PRN PRN Reason: Nausea/Vomiting Oxybutynin Chloride (Oxybutynin) 5 mg PO BEDTIME [facility] Last Admin: 03/08/20 20:43 Dose: Not Given Polyethylene Glycol (Miralax) 17 gm PO DAILY PRN PRN Reason: Constipation Vancomycin HCl (Vancomycin) 1 gm IV .PHARMACY TO DOSE [facility] Stop: 03/04/20 05:01
== END 2020-03-09 13:35 | disposition expired | DRG 193 ==
LOC: JP.ED 01:32 → JP.ICU 04:34
PROVIDERS: ADMIT Hospitalist; ATTEND Internal Medicine
PROC: 5A09457 Assistance with Respiratory Ventilation, 24-96 Consecutive Hours, Continuous Positive Airway Pressure (ICD-10-PCS; principal; 2020-03-05)
DX: J18.9 Pneumonia, unspecified organism (principal); J96.01 Acute respiratory failure with hypoxia; N28.9 Disorder of kidney and ureter, unspecified; E87.70 Fluid overload, unspecified; J44.0 Chronic obstructive pulmonary disease with (acute) lower respiratory infection; N18.4 Chronic kidney disease, stage 4 (severe); I10 Essential (primary) hypertension; J44.9 Chronic obstructive pulmonary disease, unspecified; E87.0 Hyperosmolality and hypernatremia; Z51.5 Encounter for palliative care; Z66 Do not resuscitate; G11.9 Hereditary ataxia, unspecified; J44.1 Chronic obstructive pulmonary disease with (acute) exacerbation; M06.9 Rheumatoid arthritis, unspecified; B95.5 Unspecified streptococcus as the cause of diseases classified elsewhere; I12.9 Hypertensive chronic kidney disease with stage 1 through stage 4 chronic kidney disease, or unspecified chronic kidney disease; Z20.828 Contact with and (suspected) exposure to other viral communicable diseases; K21.9 Gastro-esophageal reflux disease without esophagitis; H54.7 Unspecified visual loss; N40.1 Benign prostatic hyperplasia with lower urinary tract symptoms; N39.498 Other specified urinary incontinence; M19.90 Unspecified osteoarthritis, unspecified site; M54.9 Dorsalgia, unspecified; G89.29 Other chronic pain; D64.9 Anemia, unspecified; I27.20 Pulmonary hypertension, unspecified; F10.21 Alcohol dependence, in remission; I34.0 Nonrheumatic mitral (valve) insufficiency; Z79.01 Long term (current) use of anticoagulants; Z88.0 Allergy status to penicillin; Z79.899 Other long term (current) drug therapy; Z79.52 Long term (current) use of systemic steroids; Z86.010 Personal history of colon polyps; Z88.6 Allergy status to analgesic agent; Z99.81 Dependence on supplemental oxygen; Z98.890 Other specified postprocedural states
CPT/HCPCS: 36415; 36600; 51702; 71045; 80053; 81001; 82803; 83605; 83880; 84484; 85025; 87040 ×2; 87086; 93005; 93010; 96374; 96375; 99285; J1940; J2930; 36430; 80048; 80202; 83735; 85027; 86850; 86900; 86901; 86920; 86922; 87070; 87077; 87186; 87205; 93306; 94640; 94660; A9270-GY; J1450; J1630; J1650; J1956; J2060; J2185; J2270; J2543; J2920; J3370; J3490; J7050; J7060; J7120; J7620-GY; P9016; U0002